=== PATIENT | female | born 1935 | race Caucasian/White ===

== ENCOUNTER → 2018-04-23 | Outpatient (CLI) | payer MEDICARE ==
[2018-04-23 09:00] LABS: Calcium 9.6 mg/dL (8.4-10.2); Magnesium 1.8 mg/dL (1.6-2.3); Potassium 4.7 mmol/L (3.5-5.1)
[2018-04-23 16:55] LABS: Vitamin D 25 Hydroxy 17.9 ng/mL (30.0-100.0)
== END | disposition home or self-care (01) ==
LOC: LABWHC1 07:56
PROVIDERS: ATTEND Internal Medicine
DX: E87.6 Hypokalemia (principal); E83.42 Hypomagnesemia; N28.9 Disorder of kidney and ureter, unspecified
CPT/HCPCS: 36415; 80048; 82306; 82607; 83735

== ENCOUNTER 2019-02-15 16:43 | Emergency (ER) | payer MEDICARE ==
--- NOTE | 2019-02-15 17:15 | ED ---
SOB HPI - General Chief Complaint: Shortness of Breath Stated Complaint: Sob Time Seen by Provider: 02/15/19 17:05 Source: patient, family, RN notes reviewed Mode of arrival: ambulatory Limitations: no limitations - History of Present Illness Initial Comments: This 83-year-old female who states she had sudden onset while shopping of sweats and dizziness later shortness of breath. She denies any chest pain palpitations fevers chills or other symptoms no cough no phlegm production she has no history that she knows of COPD or asthma no history of heart disease. Of note she did just get back from [place] after driving back 8 days ago. No history of any DVT or PE. MD Complaint: shortness of breath - Related Data Home Medications Medication Instructions Recorded Confirmed Allopurinol [Zyloprim] 100 mg PO DAILY 02/15/19 02/15/19 Calcium Carbonate [Calcium] 600 mg PO MOWEFR 02/15/19 02/15/19 Cholecalciferol [Vitamin D3 (25 5,000 unit PO DAILY 02/15/19 02/15/19 Mcg = 1000 Iu)] Cyanocobalamin (Vitamin B-12) 2,000 mcg PO DAILY 02/15/19 02/15/19 [Vitamin B-12] Cyclobenzaprine [Flexeril] 10 mg PO TID PRN 02/15/19 02/15/19 Ergocalciferol (Vitamin D2) 50,000 unit PO TUFR 02/15/19 02/15/19 [Drisdol] Glucosam/Yoel-Msm1/C/Anselmo/Bosw 2 tab PO DAILY 02/15/19 02/15/19 [Glucosamine-Chondroitin Tablet] Magnesium Oxide [Mag-Ox] 400 mg PO DAILY 02/15/19 02/15/19 Multivitamins, Thera [Multivitamin 1 tab PO DAILY 02/15/19 02/15/19 (formulary)] [place]-3 Fatty Acids [[place]-3] 1,000 mg PO DAILY 02/15/19 02/15/19 Allergies Allergy/AdvReac Type Severity Reaction Status Date / Time acetaminophen [From Vicodin] Allergy Anaphylaxis Verified 02/15/19 17:23 ciprofloxacin [From Cipro] Allergy Anaphylaxis Verified 02/15/19 17:23 codeine Allergy Anaphylaxis Verified 02/15/19 17:23 hydrocodone [From Vicodin] Allergy Anaphylaxis Verified 02/15/19 17:23 ibuprofen [From Motrin] Allergy Rash/Hives Verified 02/15/19 17:23 oxycodone [From Percocet] Allergy Anaphylaxis Verified 02/15/19 17:23 Penicillins Allergy Rash/Hives Verified 02/15/19 17:23 prednisone Allergy Anaphylaxis Verified 02/15/19 17:23 propoxyphene Allergy Anaphylaxis Verified 02/15/19 17:23 [From Darvocet-N] ramipril [From Altace] Allergy Anaphylaxis Verified 02/15/19 17:23 Review of Systems ROS Statement: Those systems with pertinent positive or pertinent negative responses have been documented in the HPI. ROS Other: All systems not noted in ROS Statement are negative. Past Medical History Past Medical History: No Reported History History of Any Multi-Drug Resistant Organisms: None Reported Past Surgical History: Bowel Resection Past Psychological History: No Psychological Hx Reported Smoking Status: Current every day smoker Past Alcohol Use History: None Reported Past Drug Use History: None Reported General Exam - General Exam Comments Initial Comments: This a well-developed asthenic appearing female who is awake alert oriented 3 Limitations: no limitations General appearance: alert, in no apparent distress Head exam: Present: atraumatic, normocephalic, normal inspection Eye exam: Present: normal appearance, PERRL, EOMI. Absent: scleral icterus, conjunctival injection, periorbital swelling ENT exam: Present: mucous membranes dry Neck exam: Present: normal inspection, full ROM, other (No stridor JVD or bruits). Absent: tenderness, meningismus, lymphadenopathy Respiratory exam: Present: normal lung sounds bilaterally. Absent: respiratory distress, wheezes, rales, rhonchi, stridor Cardiovascular Exam: Present: regular rate, normal rhythm, normal heart sounds. Absent: systolic murmur, diastolic murmur, rubs, gallop, clicks GI/Abdominal exam: Present: soft, normal bowel sounds. Absent: distended, tenderness, guarding, rebound, rigid Extremities exam: Present: normal inspection, full ROM, normal capillary refill. Absent: tenderness, pedal edema, joint swelling, calf tenderness Back exam: Present: normal inspection Neurological exam: Present: alert, oriented X3, CN II-XII intact Psychiatric exam: Present: normal affect, normal mood Skin exam: Present: warm, dry, intact, normal color. Absent: rash Course Vital Signs 02/15/19 02/15/19 16:44 18:30 Temperature 98.5 F Pulse Rate 90 73 Respiratory 24 20 Rate Blood Pressure 179/70 150/70 O2 Sat by Pulse 100 100 Oximetry Medical Decision Making - Medical Decision Making Patient was able ably without any difficulty she'll back to normal. The presentation is consistent with a vasovagal reaction she does demonstrate some mild hypomagnesemia likely some mild dehydration she was encouraged to increase her fluids she does take magnesium supplements once a day I did recommend she double up on them. This is for a period of one week she is a follow-up with Dr. Olea and return when necessary - Lab Data Result diagrams: 02/15/19 17:15 02/15/19 17:15 Lab Results 02/15/19 02/15/19 02/15/19 Range/Units 17:15 17:15 17:15 WBC 6.6 (3.8-10.6) k/uL RBC 4.29 (3.80-5.40) m/uL Hgb 13.8 (11.4-16.0) gm/dL Hct 41.7 (34.0-46.0) % MCV 97.4 (80.0-100.0) fL MCH 32.1 (25.0-35.0) pg MCHC 33.0 (31.0-37.0) g/dL RDW 14.5 (11.5-15.5) % Plt Count 200 (150-450) k/uL Neutrophils % 47 % Lymphocytes % 44 % Monocytes % 5 % Eosinophils % 2 % Basophils % 1 % Neutrophils # 3.1 (1.3-7.7) k/uL Lymphocytes # 2.9 (1.0-4.8) k/uL Monocytes # 0.3 (0-1.0) k/uL Eosinophils # 0.1 (0-0.7) k/uL Basophils # 0.0 (0-0.2) k/uL PT 10.1 (9.0-12.0) sec INR 0.9 (<1.2) APTT 22.6 (22.0-30.0) sec D-Dimer 1.15 H (<0.60) mg/L FEU Sodium 138 (137-145) mmol/L Potassium 5.0 (3.5-5.1) mmol/L Chloride 106 (98-107) mmol/L Carbon Dioxide 21 L (22-30) mmol/L Anion Gap 11 mmol/L BUN 36 H (7-17) mg/dL Creatinine 1.25 H (0.52-1.04) mg/dL Est GFR (CKD-EPI)AfAm 46 (>60 ml/min/1.73 sqM) Est GFR (CKD-EPI)NonAf 40 (>60 ml/min/1.73 sqM) Glucose 104 H (74-99) mg/dL Calcium 10.1 (8.4-10.2) mg/dL Magnesium 1.5 L (1.6-2.3) mg/dL Total Bilirubin 0.4 (0.2-1.3) mg/dL AST 37 H (14-36) U/L ALT 25 (9-52) U/L Alkaline Phosphatase 45 (38-126) U/L Creatine Kinase 61 (30-135) U/L Troponin I (0.000-0.034) ng/mL NT-Pro-B Natriuret Pep pg/mL Total Protein 7.4 (6.3-8.2) g/dL Albumin 4.5 (3.5-5.0) g/dL 02/15/19 02/15/19 Range/Units 17:15 17:15 WBC (3.8-10.6) k/uL RBC (3.80-5.40) m/uL Hgb (11.4-16.0) gm/dL Hct (34.0-46.0) % MCV (80.0-100.0) fL MCH (25.0-35.0) pg MCHC (31.0-37.0) g/dL RDW (11.5-15.5) % Plt Count (150-450) k/uL Neutrophils % % Lymphocytes % % Monocytes % % Eosinophils % % Basophils % % Neutrophils # (1.3-7.7) k/uL Lymphocytes # (1.0-4.8) k/uL Monocytes # (0-1.0) k/uL Eosinophils # (0-0.7) k/uL Basophils # (0-0.2) k/uL PT (9.0-12.0) sec INR (<1.2) APTT (22.0-30.0) sec D-Dimer (<0.60) mg/L FEU Sodium (137-145) mmol/L Potassium (3.5-5.1) mmol/L Chloride (98-107) mmol/L Carbon Dioxide (22-30) mmol/L Anion Gap mmol/L BUN (7-17) mg/dL Creatinine (0.52-1.04) mg/dL Est GFR (CKD-EPI)AfAm (>60 ml/min/1.73 sqM) Est GFR (CKD-EPI)NonAf (>60 ml/min/1.73 sqM) Glucose (74-99) mg/dL Calcium (8.4-10.2) mg/dL Magnesium (1.6-2.3) mg/dL Total Bilirubin (0.2-1.3) mg/dL AST (14-36) U/L ALT (9-52) U/L Alkaline Phosphatase (38-126) U/L Creatine Kinase (30-135) U/L Troponin I <0.012 (0.000-0.034) ng/mL NT-Pro-B Natriuret Pep 236 pg/mL Total Protein (6.3-8.2) g/dL Albumin (3.5-5.0) g/dL - EKG Data -: EKG Interpreted by Me EKG shows normal: sinus rhythm (Normal sinus rhythm a 68. Interval 170 QRS duration 80 QT since QTC 376/399 st-t wave changes some artifact present) - Radiology Data Radiology results: report reviewed (I did review the imaging and report no acute findings no evidence of PE.), image reviewed Disposition Clinical Impression: Vasovagal episode, Hypomagnesemia, Dehydration Disposition: HOME SELF-CARE Condition: Good Instructions (If sedation given, give patient instructions): Hypomagnesemia (ED), Dehydration (ED) Is patient prescribed a controlled substance at d/c from ED?: No Referrals: Arnie Olea MD [Primary Care Provider] - 1-2 days
[2019-02-15 17:30] LABS: Basophils % (A) 1 %; Eosinophils # (A) 0.1 k/uL (0-0.7); Eosinophils % (A) 2 %; HCT 41.7 % (34.0-46.0); HGB 13.8 gm/dL (11.4-16.0); Lymphocytes # (A) 2.9 k/uL (1.0-4.8); Lymphocytes % (A) 44 %; MCH 32.1 pg (25.0-35.0); MCV 97.4 fL (80.0-100.0); Mean Platelet Volume 7.6; Monocytes # (A) 0.3 k/uL (0-1.0); Monocytes % (A) 5 %; Neutrophils # (A) 3.1 k/uL (1.3-7.7); Neutrophils % (A) 47 %; Platelet Count 200 k/uL (150-450); RBC 4.29 m/uL (3.80-5.40); RDW 14.5 % (11.5-15.5); WBC 6.6 k/uL (3.8-10.6)
[2019-02-15 17:39] LABS: Albumin 4.5 g/dL (3.5-5.0); Calcium 10.1 mg/dL (8.4-10.2); Magnesium 1.5 mg/dL (1.6-2.3); Total Bilirubin 0.4 mg/dL (0.2-1.3); Total Protein 7.4 g/dL (6.3-8.2)
--- NOTE | 2019-02-15 17:44 | XR ---
EXAMINATION TYPE: XR chest 2V DATE OF EXAM: 02/15/2019 COMPARISON: 08/11/2013 HISTORY: Short of breath TECHNIQUE: Frontal and lateral views of the chest are obtained. FINDINGS: There is no heart failure nor confluent pneumonic infiltrate. Costophrenic angles are fair ly clear. Thoracic aorta is atheromatous. Bony thorax appears intact. There is slight blunting left costophrenic angle. IMPRESSION: Normal heart. There is new minimal pleural reaction left lateral lung base compared to l ast exam.
[2019-02-15 17:46] LABS: INR 0.9 (<1.2); Partial Thromboplastin Time 22.6 sec (22.0-30.0); Prothrombin Time 10.1 sec (9.0-12.0)
[2019-02-15 17:55] LABS: D-Dimer 1.15 mg/L FEU (<0.60)
[2019-02-15] MEDS ORDERED: SODIUM CHLORIDE 0.9% 500 ML 500 ML IV STA (18:27)
--- NOTE | 2019-02-15 19:43 | CT ---
EXAMINATION TYPE: CT angio chest DATE OF EXAM: 02/15/2019 7:02 PM COMPARISON: None HISTORY: Difficulty breathing. CT DLP: 239.5 mGycm Automated exposure control for dose reduction was used. CONTRAST: CTA scan of the thorax is performed with IV Contrast, patient injected with 57 mL of Isovue 370, pulm onary embolism protocol. . There are 3-D post processed images. FINDINGS: There is mild subsegmental atelectasis at the lung bases. There is no pleural effusion. Heart size is normal. There is no pericardial effusion. There is no mediastinal adenopathy. There are no hilar mas ses. There is normal contrast opacification of the pulmonary arteries. I see no filling defect. Thora cic aorta shows mild atheromatous change. There is no evidence of aneurysm or dissection. The bony th orax shows hypertrophic spurring in the thoracic spine. I see no bony destructive process. IMPRESSION: MINIMAL SCARRING AND SUBSEGMENTAL ATELECTASIS AT THE LUNG BASES. NO EVIDENCE OF PULMONARY EMBOLISM.
[2019-02-15 21:01] VITALS: BP 157/67; PULSE 76; RESP 18; TEMP 98.6
== END 2019-02-15 21:03 | disposition home or self-care (01) ==
LOC: EC 16:43
DX: E86.0 Dehydration (principal); E83.42 Hypomagnesemia; R55 Syncope and collapse; R94.31 Abnormal electrocardiogram [ECG] [EKG]; R06.02 Shortness of breath; F17.200 Nicotine dependence, unspecified, uncomplicated; Z88.0 Allergy status to penicillin; Z88.1 Allergy status to other antibiotic agents; Z88.5 Allergy status to narcotic agent; Z88.6 Allergy status to analgesic agent; Z88.8 Allergy status to other drugs, medicaments and biological substances; Z79.899 Other long term (current) drug therapy
CPT/HCPCS: 36415; 93005; 85379; 83880; 80053; 82550; 83735; 84484; 85025; 85610; 85730; 71046; 71275; 99285; 96360; Q9967

== ENCOUNTER → 2021-02-15 | Outpatient (CLI) | payer MEDICARE ==
--- NOTE | 2021-02-15 13:51 | US ---
EXAMINATION TYPE: US kidneys/renal and bladder DATE OF EXAM: 02/15/2021 COMPARISON: NONE CLINICAL HISTORY: N17.9 Acute kidney failure, unspecified. EXAM MEASUREMENTS: Right Kidney: 10.9 x 3.2 x 4.5 cm Left Kidney: 7.9 x 3.2 x 3.0 cm Right Kidney: No hydronephrosis or masses seen Left Kidney: ill defined, heterogeneous kidney, measures small Bladder: wnl There is no evidence for hydronephrosis at this point in time. No nephrolithiasis is seen. No santa s are identified. The urinary bladder is anechoic. Bilateral ureteral jets are seen. IMPRESSION: Diminutive kidney on the left.
== END | disposition home or self-care (01) ==
LOC: RADUSWWP 12:56
PROVIDERS: ATTEND Internal Medicine Nephrology
DX: N17.9 Acute kidney failure, unspecified (principal)
CPT/HCPCS: 76770

== ENCOUNTER 2021-06-04 14:31 | Inpatient (IN) | payer MEDICARE ==
[2021-06-04] MEDS ORDERED: SODIUM CHLORIDE 0.9% 500 ML 500 ML IV STA (15:12)
--- NOTE | 2021-06-04 15:18 | ED ---
Weakness HPI - General Source: patient, family, RN notes reviewed, old records reviewed Mode of arrival: wheelchair Limitations: no limitations - History of Present Illness MD Complaint: generalized weakness -: days(s) (6) Location: generalized Severity scale (1-10): 0 Context: new medication (2 weeks ago started a blood pressure medication), other (Recovering from a right ear infection and ental extraction last week currently taking Keflex) <Chi Boggs - Last Filed: 06/04/21 21:46> <Edwige Newton - Last Filed: 06/08/21 14:31> - General Chief complaint: Weakness Stated complaint: Weakness Time Seen by Provider: 06/04/21 15:02 - History of Present Illness Initial comments: 85-year-old female patient presents to the emergency room, alert and oriented 4, complaining of generalized weakness since . Patient states that she was started on Keflex for an ear infection and also had a tooth extraction upper left last molar. She states that her primary doctor put her on a new blood pressure patch after having no results with oral tablets related her ileostomy and she was having low blood pressures. She denies any chest pain, nausea or vomiting. She states that she had a low-grade fever of 99 at home. She has a mild headache and has not been eating well per her .. (Chi Boggs) - Related Data Home Medications Medication Instructions Recorded Confirmed Allopurinol [Zyloprim] 100 mg PO DAILY 02/15/19 06/04/21 Ergocalciferol (Vitamin D2) 50,000 unit PO MOFR 02/15/19 06/04/21 [Drisdol (50,000 Iu)] Multivitamins, Thera [Multivitamin 1 tab PO DAILY 02/15/19 06/04/21 (formulary)] Calcium Citrate 1,000 mg PO MOWEFR 06/04/21 06/04/21 Cyanocobalamin (Vitamin B-12) 1,000 mcg PO DAILY 06/04/21 06/04/21 [Vitamin B-12] Garlic 1 tab PO DAILY 06/04/21 06/04/21 Krill/[place]-3/Dha/Epa/Lipids 1 cap PO MOWEFR 06/04/21 06/04/21 [Krill Oil 350 mg Softgel] Magnesium Glycintate 400mg 1 tab PO BID 06/04/21 06/04/21 Xgrswxpt-Tydwmrrqx-Bx Otic 4 drops RIGHT EAR QID 06/04/21 06/04/21 [Cortisporin Otic Soln] Turmeric Root Extract [Turmeric] 500 mg PO DAILY 06/04/21 06/04/21 predniSONE 1 mg PO TID 06/04/21 06/04/21 Previous Rx's Medication Instructions Recorded Acetaminophen Tab [Tylenol] 650 mg PO Q6HR PRN tab 06/07/21 Clindamycin [Cleocin] 300 mg PO Q8H 5 Days #30 cap 06/07/21 Lactobacillus Acidoph & Bulgar 1 each PO BID #60 packet 06/07/21 [Lactinex] Allergies Allergy/AdvReac Type Severity Reaction Status Date / Time acetaminophen [From Vicodin] Allergy Anaphylaxis Verified 06/04/21 19:27 ceftriaxone Allergy Swelling Verified 06/05/21 14:36 ciprofloxacin [From Cipro] Allergy Anaphylaxis Verified 06/04/21 19:27 codeine Allergy Anaphylaxis Verified 06/04/21 19:27 hydrocodone [From Vicodin] Allergy Anaphylaxis Verified 06/04/21 19:27 ibuprofen [From Motrin] Allergy Rash/Hives Verified 06/04/21 19:27 oxycodone [From Percocet] Allergy Anaphylaxis Verified 06/04/21 19:27 Penicillins Allergy Rash/Hives Verified 06/04/21 19:27 prednisone Allergy Anaphylaxis Verified 06/04/21 19:27 propoxyphene Allergy Anaphylaxis Verified 06/04/21 19:27 [From Darvocet-N] ramipril [From Altace] Allergy Anaphylaxis Verified 06/04/21 19:27 Review of Systems ROS Other: All systems not noted in ROS Statement are negative. <Chi Boggs - Last Filed: 06/04/21 21:46> ROS Other: All systems not noted in ROS Statement are negative. <Edwige Newton - Last Filed: 06/08/21 14:31> ROS Statement: Those systems with pertinent positive or pertinent negative responses have been documented in the HPI. Past Medical History Past Medical History: No Reported History History of Any Multi-Drug Resistant Organisms: None Reported Past Surgical History: Bowel Resection Additional Past Surgical History / Comment(s): illeostomy Past Psychological History: No Psychological Hx Reported Smoking Status: Never smoker Past Alcohol Use History: None Reported Past Drug Use History: None Reported <Chi Boggs - Last Filed: 06/04/21 21:46> - Past Family History Mother Family Medical History: Diabetes Mellitus Father Family Medical History: Hypertension Additional Family Medical History / Comment(s): of heart attrack <Edwige Newton - Last Filed: 06/08/21 14:31> General Exam Limitations: no limitations General appearance: alert, in no apparent distress Head exam: Present: atraumatic, normocephalic, normal inspection Eye exam: Present: normal appearance, PERRL, EOMI. Absent: scleral icterus, conjunctival injection, periorbital swelling ENT exam: Present: normal exam, normal oropharynx, mucous membranes moist, other (Right canal red and tender from earwax removal last week) Neck exam: Present: normal inspection, full ROM. Absent: tenderness, meningismus, lymphadenopathy, thyromegaly Respiratory exam: Present: normal lung sounds bilaterally. Absent: respiratory distress, wheezes, rales, rhonchi, stridor, chest wall tenderness, accessory muscle use, decreased breath sounds, prolonged expiratory Cardiovascular Exam: Present: regular rate, normal rhythm, normal heart sounds. Absent: systolic murmur, diastolic murmur, rubs, gallop, clicks GI/Abdominal exam: Present: soft, normal bowel sounds, other (Ileostomy with brown liquid stool). Absent: distended, tenderness, guarding, rebound, rigid Extremities exam: Present: normal inspection, full ROM, normal capillary refill. Absent: tenderness, pedal edema, joint swelling, calf tenderness Back exam: Present: normal inspection, full ROM. Absent: tenderness, CVA tenderness (R), CVA tenderness (L), muscle spasm, rash noted Neurological exam: Present: alert, oriented X3, CN II-XII intact Psychiatric exam: Present: normal affect, normal mood Skin exam: Present: warm, dry, intact, normal color. Absent: rash, cyanosis, diaphoretic, erythema, petechiae, pallor, mottled <Chi Boggs - Last Filed: 06/04/21 21:46> Course Vital Signs 06/04/21 06/05/21 06/05/21 14:34 01:25 02:51 Temperature 98.4 F 98 F Pulse Rate 88 71 60 Pulse Rate [ Right Lateral] Respiratory 18 18 18 Rate Blood Pressure 127/65 114/80 Blood Pressure [Right Femoral Artery] O2 Sat by Pulse 98 98 98 Oximetry 06/05/21 06/05/21 06/05/21 07:48 08:30 12:11 Temperature 98.6 F 98.4 F Pulse Rate Pulse Rate [ 74 75 Right Lateral] Respiratory 17 18 17 Rate Blood Pressure Blood Pressure 133/66 123/73 [Right Femoral Artery] O2 Sat by Pulse 98 99 Oximetry 06/05/21 19:29 Temperature 100.0 F H Pulse Rate 88 Pulse Rate [ Right Lateral] Respiratory 16 Rate Blood Pressure 116/62 Blood Pressure [Right Femoral Artery] O2 Sat by Pulse 98 Oximetry EKG Findings - EKG Results: EKG: sinus rhythm (Ventricular rate of 85, CT interval 0.164, QRS 0.74, QTC 0.426) <Chi Boggs - Last Filed: 06/04/21 21:46> Medical Decision Making - Lab Data Result diagrams: 06/04/21 15:31 06/04/21 15:31 <Chi Boggs - Last Filed: 06/04/21 21:46> - Lab Data Result diagrams: 06/06/21 05:29 06/06/21 05:29 <Edwige Newton - Last Filed: 06/08/21 14:31> - Medical Decision Making EKG shows normal sinus rhythm with no ST elevation, her troponin is negative at 0.012. Hemoglobin and hematocrit are 13 and 40 respectively. Patient is hyponatremic at 129 and was given a 500 mL bolus of normal saline. X-ray shows no heart failure or infiltrates. Heart size is normal there is no cardiopulmonary disease. Patient states that she is still too weak to stand on her own. She'll be admitted to the hospital for weakness and inability to ambulate along with hyponatremia. Case discussed with Dr. Newton (Chi Boggs) I was available for consultation in the emergency department. The history and physical exam were done by the midlevel provider. I was consulted for this patients care. I reviewed the case with the midlevel provider and based on their presentation of the patient, I agree with the assessment, medical decision making and plan of care as documented. Chart was dictated using [employer] dictation software. Attempts were made to correct any dictation errors however some typographical errors may persist. Patient was seen during a national state of emergency due to the Covid-19 pandemic. (Edwige Newton) - Lab Data Lab Results 06/04/21 06/04/21 06/04/21 Range/Units 15:31 15:31 15:31 WBC 8.7 (3.8-10.6) k/uL RBC 4.05 (3.80-5.40) m/uL Hgb 13.3 (11.4-16.0) gm/dL Hct 40.6 (34.0-46.0) % MCV 100.4 H (80.0-100.0) fL MCH 33.0 (25.0-35.0) pg MCHC 32.9 (31.0-37.0) g/dL RDW 14.0 (11.5-15.5) % Plt Count 201 (150-450) k/uL MPV 7.8 Neutrophils % 68 % Lymphocytes % 21 % Monocytes % 6 % Eosinophils % 1 % Basophils % 1 % Neutrophils # 5.9 (1.3-7.7) k/uL Lymphocytes # 1.8 (1.0-4.8) k/uL Monocytes # 0.5 (0-1.0) k/uL Eosinophils # 0.1 (0-0.7) k/uL Basophils # 0.1 (0-0.2) k/uL Hypochromasia Slight Poikilocytosis Slight Macrocytosis Slight PT 9.7 (9.0-12.0) sec INR 0.9 (<1.2) APTT 21.7 L (22.0-30.0) sec Sodium (137-145) mmol/L Potassium (3.5-5.1) mmol/L Chloride (98-107) mmol/L Carbon Dioxide (22-30) mmol/L Anion Gap mmol/L BUN (7-17) mg/dL Creatinine (0.52-1.04) mg/dL Est GFR (CKD-EPI)AfAm (>60 ml/min/1.73 sqM) Est GFR (CKD-EPI)NonAf (>60 ml/min/1.73 sqM) Glucose (74-99) mg/dL Plasma Lactic Acid Thai (0.7-2.0) mmol/L Calcium (8.4-10.2) mg/dL Magnesium (1.6-2.3) mg/dL Total Bilirubin (0.2-1.3) mg/dL AST (14-36) U/L ALT (4-34) U/L Alkaline Phosphatase (38-126) U/L Troponin I (0.000-0.034) ng/mL Total Protein (6.3-8.2) g/dL Albumin (3.5-5.0) g/dL Urine Color Yellow Urine Appearance Cloudy H (Clear) Urine pH 5.0 (5.0-8.0) Ur Specific [place] 1.017 (1.001-1.035) Urine Protein Trace H (Negative) Urine Glucose (UA) Negative (Negative) Urine Ketones Negative (Negative) Urine Blood Negative (Negative) Urine Nitrite Negative (Negative) Urine Bilirubin Negative (Negative) Urine Urobilinogen <2.0 (<2.0) mg/dL Ur Leukocyte Esterase Moderate H (Negative) Urine RBC 3 (0-5) /hpf Urine WBC 3 (0-5) /hpf Ur Squamous Epith Cells 3 (0-4) /hpf Urine Bacteria Rare H (None) /hpf Urine Mucus Rare H (None) /hpf 06/04/21 06/04/21 06/04/21 Range/Units 15:31 15:31 15:31 WBC (3.8-10.6) k/uL RBC (3.80-5.40) m/uL Hgb (11.4-16.0) gm/dL Hct (34.0-46.0) % MCV (80.0-100.0) fL MCH (25.0-35.0) pg MCHC (31.0-37.0) g/dL RDW (11.5-15.5) % Plt Count (150-450) k/uL MPV Neutrophils % % Lymphocytes % % Monocytes % % Eosinophils % % Basophils % % Neutrophils # (1.3-7.7) k/uL Lymphocytes # (1.0-4.8) k/uL Monocytes # (0-1.0) k/uL Eosinophils # (0-0.7) k/uL Basophils # (0-0.2) k/uL Hypochromasia Poikilocytosis Macrocytosis PT (9.0-12.0) sec INR (<1.2) APTT (22.0-30.0) sec Sodium 129 L (137-145) mmol/L Potassium 4.1 (3.5-5.1) mmol/L Chloride 96 L (98-107) mmol/L Carbon Dioxide 20 L (22-30) mmol/L Anion Gap 13 mmol/L BUN 55 H (7-17) mg/dL Creatinine 1.72 H (0.52-1.04) mg/dL Est GFR (CKD-EPI)AfAm 31 (>60 ml/min/1.73 sqM) Est GFR (CKD-EPI)NonAf 27 (>60 ml/min/1.73 sqM) Glucose 111 H (74-99) mg/dL Plasma Lactic Acid [place] 1.4 (0.7-2.0) mmol/L Calcium 9.4 (8.4-10.2) mg/dL Magnesium 2.1 (1.6-2.3) mg/dL Total Bilirubin 0.7 (0.2-1.3) mg/dL AST 32 (14-36) U/L ALT 33 (4-34) U/L Alkaline Phosphatase 55 (38-126) U/L Troponin I <0.012 (0.000-0.034) ng/mL Total Protein 7.1 (6.3-8.2) g/dL Albumin 4.3 (3.5-5.0) g/dL Urine Color Urine Appearance (Clear) Urine pH (5.0-8.0) Ur Specific [place] (1.001-1.035) Urine Protein (Negative) Urine Glucose (UA) (Negative) Urine Ketones (Negative) Urine Blood (Negative) Urine Nitrite (Negative) Urine Bilirubin (Negative) Urine Urobilinogen (<2.0) mg/dL Ur Leukocyte Esterase (Negative) Urine RBC (0-5) /hpf Urine WBC (0-5) /hpf Ur Squamous Epith Cells (0-4) /hpf Urine Bacteria (None) /hpf Urine Mucus (None) /hpf Disposition Decision Date: 06/04/21 Decision Time: 18:35 <Chi Boggs - Last Filed: 06/04/21 21:46> <Edwige Newton - Last Filed: 06/08/21 14:31> Clinical Impression: Hyponatremia, Weakness Disposition: ADMITTED IP TO THIS HOSP Condition: Stable
[2021-06-04 16:10] LABS: Appearance,Urine Cloudy (Clear); Bacteria,Urine Rare /hpf; Bilirubin,Urine Negative (Negative); Blood,Urine Negative (Negative); Color,Urine Yellow; Glucose,Urine (UA) Negative (Negative); Ketones,Urine Negative (Negative); Leukocyte Esterase,Urine Moderate (Negative); Mucus,Urine Rare /hpf; Nitrite,Urine Negative (Negative); Protein,Urine Trace (Negative); RBC,Urine 3 /hpf (0-5); Specific Gravity,Urine 1.017 (1.001-1.035); Squamous Epithelial Cell,Urine 3 /hpf (0-4); Urobilinogen,Urine <2.0 mg/dL (<2.0); WBC,Urine 3 /hpf (0-5)
[2021-06-04 16:26] LABS: Basophils # (A) 0.1 k/uL (0-0.2); Basophils % (A) 1 %; Eosinophils # (A) 0.1 k/uL (0-0.7); Eosinophils % (A) 1 %; HCT 40.6 % (34.0-46.0); HGB 13.3 gm/dL (11.4-16.0); Hypochromasia Slight; Lymphocytes # (A) 1.8 k/uL (1.0-4.8); Lymphocytes % (A) 21 %; MCHC 32.9 g/dL (31.0-37.0); MCV 100.4 fL (80.0-100.0); Macrocytosis Slight; Mean Platelet Volume 7.8; Monocytes # (A) 0.5 k/uL (0-1.0); Monocytes % (A) 6 %; Neutrophils # (A) 5.9 k/uL (1.3-7.7); Neutrophils % (A) 68 %; Platelet Count 201 k/uL (150-450); Poikilocytosis Slight; RBC 4.05 m/uL (3.80-5.40); WBC 8.7 k/uL (3.8-10.6)
[2021-06-04 16:35] LABS: Albumin 4.3 g/dL (3.5-5.0); Calcium 9.4 mg/dL (8.4-10.2); Magnesium 2.1 mg/dL (1.6-2.3); Potassium 4.1 mmol/L (3.5-5.1); Total Bilirubin 0.7 mg/dL (0.2-1.3); Total Protein 7.1 g/dL (6.3-8.2)
[2021-06-04 16:37] LABS: INR 0.9 (<1.2); Prothrombin Time 9.7 sec (9.0-12.0)
[2021-06-04 16:47] LABS: Partial Thromboplastin Time 21.7 sec (22.0-30.0)
--- NOTE | 2021-06-04 18:07 | XR ---
EXAMINATION TYPE: XR chest 2V DATE OF EXAM: 06/04/2021 COMPARISON: 02/15/2019 HISTORY: Weakness TECHNIQUE: FINDINGS: There is no heart failure nor confluent pneumonic infiltrate. Thoracic aorta is atheromatou s. There are no hilar masses. Heart size is normal. Bony thorax is intact. IMPRESSION: No cardiopulmonary disease. No change.
[2021-06-04] MEDS ORDERED: NALOXONE 0.4 MG/ML 1 ML VIAL IV PRN (19:09)
[2021-06-04] MEDS ORDERED: ONDANSETRON 4 MG/2 ML VIAL IVP PRN (20:03)
--- NOTE | 2021-06-04 20:41 | HP ---
HISTORY AND PHYSICAL DATE OF SERVICE: 06/04/2021 CHIEF COMPLAINTS: Weakness and hyponatremia. HISTORY OF PRESENT ILLNESS: This 85-year-old woman with a past medical history of bowel resection and ileostomy also recently was found to have ear wax plugging in the right ear which was removed with some bleeding. Recently the patient was complaining of progressive tiredness and weakness. Subsequently the patient had taken antibiotics. Patient was unable to get up and walk even. The patient came to [facility] and was admitted for evaluation and treatment. There is no history of any fever, rigors or chills. No history of headache, loss of consciousness, seizures. Evaluation in the ER showed sodium was 129, creatinine was elevated to 1.72, indicating acute renal failure. The patient was admitted for further evaluation and treatment. The right ear is red and tender also. White count is normal. There is no history of any fever, rigor or chills. PAST MEDICAL HISTORY: History of ear wax removal, bowel resection, ileostomy. HOME MEDICATIONS: Prednisone mg p.o. t.i.d., turmeric, multivitamins, magnesium oxide, vitamin B12, Keflex, calcium citrate, . ALLERGIES: VICODIN, CIPRO, PERCOCET, PENICILLIN, DARVOCET, ALTACE. FAMILY HISTORY: No history of heart disease or strokes in the family. SOCIAL HISTORY: No history of heart disease or strokes in the family. REVIEW OF SYSTEMS: ENT: As mentioned earlier. CARDIOVASCULAR SYSTEM: No angina, palpitations. RESPIRATORY SYSTEM: As mentioned earlier. GI: As mentioned earlier. : No dysuria. NERVOUS SYSTEM: As mentioned earlier. ALLERGY/IMMUNOLOGY: No asthma or hay fever. MUSCULOSKELETAL: As mentioned earlier. HEMATOLOGY/ONCOLOGY: No history of anemia. ENDOCRINE: No history of diabetes, hypothyroidism. CONSTITUTIONAL: As mentioned earlier. DERMATOLOGY: Negative. RHEUMATOLOGY: Negative. PSYCHIATRY: As mentioned earlier. PHYSICAL EXAMINATION: Patient alert and oriented x3. Pulse 88, blood pressure 127/64, respiration 18, temperature 98.2, pulse ox 98% on room air. HEENT: Conjunctivae normal. Examination of the right ear is painful. Some redness also present. Oral mucosa moist. NECK: No jugular venous distention. No carotid bruit. No lymph node enlargement. CARDIOVASCULAR: S1, S2 muffled. No S3. No S4. RESPIRATION: Breath sounds diminished at the bases. No rhonchi. No crackles. ABDOMEN: Soft, nontender. No mass palpable. LEGS: No edema. No swelling. NERVOUS SYSTEM: Higher functions as mentioned earlier. Significant weakness, especially in both lower limbs. Gait dysfunction present. Pulses are diminished. No sensory abnormalities. SKIN: No ulcer, rash, bleeding. JOINTS: No active deforming arthropathy. LABS: Chest x-ray which was reviewed personally by me showed no active disease. The EKG was also reviewed which showed normal sinus rhythm. MCV is 100.4, sodium is 129, and creatinine is 1.72. ASSESSMENT: 1. Acute renal failure with acute tubular necrosis and dehydration possibly. 2. Hyponatremia. 3. Generalized weakness for evaluation. 4. Possible external otitis. 5. History of recent wax removal. 6. History of bowel resection. 7. History of ileostomy. 8. FULL CODE. RECOMMENDATIONS AND DISCUSSION: In this 85-year-old woman who presented with multiple complex medical issues, we will monitor the patient closely, continue the current medications, continue with symptomatic treatment. Will initiate broad-spectrum IV antibiotics. Ear cultures. See orders for further details. Further recommendations to follow. Include blood cultures and also to rule out the possibility of sepsis. Discussed with the patient and family, who understand and agree. Further recommendations to follow. Home medications will be continued once reconciled. IV fluids. Will monitor renal functions closely. MMODL / IJN: [id number] / LUIS ENRIQUE
[2021-06-04] MEDS ORDERED: MAGNESIUM OXIDE 400 MG TAB PO SCH (21:00)
[2021-06-04] MEDS: HEPARIN SODIUM,PORCINE/PF 5,000 UNIT/0.5 ML SYRINGE SQ SCH (23:06)
[2021-06-04] MEDS: SODIUM CHLORIDE 0.9% 1,000 ML IV SCH (23:07)
[2021-06-04] MEDS: MAGNESIUM OXIDE 400 MG TAB PO SCH (23:07)
[2021-06-05] MEDS: NEOMYCIN-POLYMYXIN-HC (3.5-10,000-10 MG) OTIC DROPS 10 ML BTL RIGHT EAR SCH ×4 (02:17→17:33)
[2021-06-05 04:18] LABS: Basophils % (A) 1 %; Eosinophils # (A) 0.1 k/uL (0-0.7); Eosinophils % (A) 1 %; HCT 38.9 % (34.0-46.0); HGB 12.8 gm/dL (11.4-16.0); Lymphocytes # (A) 2.1 k/uL (1.0-4.8); Lymphocytes % (A) 26 %; MCH 32.9 pg (25.0-35.0); MCHC 32.9 g/dL (31.0-37.0); MCV 100.3 fL (80.0-100.0); Mean Platelet Volume 7.9; Monocytes # (A) 0.5 k/uL (0-1.0); Monocytes % (A) 7 %; Neutrophils # (A) 4.9 k/uL (1.3-7.7); Neutrophils % (A) 63 %; Platelet Count 198 k/uL (150-450); RBC 3.87 m/uL (3.80-5.40); RDW 12.9 % (11.5-15.5); WBC 7.8 k/uL (3.8-10.6)
[2021-06-05] MEDS: allopurinoL 100 MG TAB PO SCH (07:57)
[2021-06-05] MEDS: CYANOCOBALAMIN 500 MCG TAB PO SCH (07:58)
[2021-06-05] MEDS: CALCIUM CARBONATE 500 MG CHEWABLE PO SCH (07:58)
[2021-06-05] MEDS: HEPARIN SODIUM,PORCINE/PF 5,000 UNIT/0.5 ML SYRINGE SQ SCH ×2 (07:58→21:36)
[2021-06-05] MEDS: MULTIVITAMINS, THERA 1 EACH TAB PO SCH (07:58)
[2021-06-05] MEDS: MAGNESIUM OXIDE 400 MG TAB PO SCH ×2 (07:58→21:34)
[2021-06-05] MEDS: SODIUM CHLORIDE 0.9% 1,000 ML IV SCH (08:00)
[2021-06-05 12:34] LABS: African American GFR (CKD) 33.9 (60.0-200.0); BUN/Creat Ratio 33.75 Ratio (12.00-20.00); C Reactive Protein <0.4 mg/dL (0.0-0.8); Calcium 9.8 mg/dL (8.7-10.3); Carbon Dioxide 21.3 mmol/L (21.6-31.8); Chloride 101 mmol/L (96-109); Glucose 140 mg/dL (70-110); Non-African American GFR(CKD) 29.3 (60.0-200.0); Potassium 3.6 mmol/L (3.5-5.5); Sodium 134 mmol/L (135-145)
[2021-06-05 14:28] LABS: Erythrocyte Sedimentation Rate 43 mm/Hr (0-30)
--- NOTE | 2021-06-05 19:21 | PN ---
PROGRESS NOTE DATE OF SERVICE: 06/05/2021 This 85-year-old woman was admitted with weakness and hyponatremia, suspected to have sepsis, external ( ) was is a consideration. The patient is on IV antibiotics. After Rocephin patient has some swelling and some itching. No chest pain. No palpitations. No fever. PHYSICAL EXAMINATION: Alert and oriented x3. Pulse 75, blood pressure 123/70, respiration 17, temperature 98.4, pulse ox 98% on room air. HEENT: Conjunctivae normal. Otherwise, right ear is slightly erythematous. NECK: No jugular venous distention. No lymph node enlargement. CARDIOVASCULAR: S1, S2, muffled. No S3, no S4, RESPIRATORY: Diminished breath sounds at the bases. No rhonchi, no crackles. ABDOMEN: Soft. NERVOUS SYSTEM: No focal deficits. LABS: Sodium 134, creatinine is 1.6. Other labs are noted. Cultures are negative so far. ASSESSMENT: 1. Acute renal failure with acute tubular necrosis and dehydration possibly, present on admission. 2. Hyponatremia. 3. Generalized weakness, for evaluation. 4. Right external otitis, rule out sepsis. 5. History of recent wax removal. 6. History of bowel resection. 7. History of Ileostomy. 8. FULL CODE. RECOMMENDATIONS AND DISCUSSION: Recommend to continue current management and symptomatic treatment. Closely follow with Infectious Disease and Nephrology. Continue the IV fluids. Repeat labs tomorrow. Guarded prognosis. Further recommendations to follow. MMODL / IJN: [id number] /
[2021-06-05] MEDS ORDERED: DHA PO SCH (20:00)
[2021-06-05] MEDS ORDERED: [UNRECOGNIZED DRUG - OTHER] PO SCH (20:00)
[2021-06-05] MEDS ORDERED: KRILL PO SCH (20:00)
[2021-06-05] MEDS ORDERED: EPA PO SCH (20:00)
[2021-06-05] MEDS ORDERED: LIPIDS PO SCH (20:00)
[2021-06-05] MEDS ORDERED: OMEGA PO SCH (20:00)
[2021-06-05] MEDS ORDERED: diphenhydrAMINE 50 MG/ML 1 ML VIAL IVP PRN (21:29)
[2021-06-05] MEDS: ACETAMINOPHEN TAB 325 MG TAB PO PRN (21:34)
[2021-06-06] MEDS: NEOMYCIN-POLYMYXIN-HC (3.5-10,000-10 MG) OTIC DROPS 10 ML BTL RIGHT EAR SCH (01:41)
[2021-06-06] MEDS: SODIUM CHLORIDE 0.9% 1,000 ML IV SCH ×2 (05:08→08:55)
[2021-06-06 06:11] LABS: Basophils % (A) 1 %; Eosinophils # (A) 0.1 k/uL (0-0.7); Eosinophils % (A) 1 %; HCT 35.8 % (34.0-46.0); HGB 12.2 gm/dL (11.4-16.0); Lymphocytes # (A) 1.8 k/uL (1.0-4.8); Lymphocytes % (A) 29 %; MCH 33.9 pg (25.0-35.0); MCHC 34.1 g/dL (31.0-37.0); MCV 99.5 fL (80.0-100.0); Mean Platelet Volume 7.5; Monocytes # (A) 0.4 k/uL (0-1.0); Monocytes % (A) 6 %; Neutrophils # (A) 3.8 k/uL (1.3-7.7); Neutrophils % (A) 61 %; Platelet Count 216 k/uL (150-450); RBC 3.59 m/uL (3.80-5.40); RDW 13.3 % (11.5-15.5); WBC 6.2 k/uL (3.8-10.6)
--- NOTE | 2021-06-06 07:34 | P.CONS ---
History of Present Illness - Reason for Consult Consult date: 06/05/21 right otitis extenra Requesting physician: Selwyn Vaughn - Chief Complaint weakness and right ear pain x few days - History of Present Illness History of present illness : Patient is 85-year-old female presenting to the ER yesterday for evaluation of generalized weakness symptom has been going on since patient mention she did have a significant amount of wax in her ear which has been extracted by her physician and subsequent has developed an infection to the right ear for the patient was started on oral Keflex and the patient also have extraction of the last molar tooth patient complains of generalized weakness and did have nausea vomiting unable to keep anything down patient on presentation hospital was afebrile patient did have a normal white count did have elevated BUN and creatinine kidney function was normal urine was mildly positive but no pyuria patient did have a cultures obtained from the radiation as well as blood cultures are currently pending patient did have multiple antibiotic allergies and this infectious disease was consulted for further management of antibiotic therapy Review of system: CONSTITUTIONAL: Positive for weakness however denies fever. EYES: No complaint. ENT: As per history of present illness. RESPIRATORY: No complaint. CARDIOVASCULAR: No complaint. GENITOURINARY: No complaint. GASTROINTESTINAL: As per history of present illness. MUSCULOSKELETAL: No complaint. INTEGUMENTARY: No complaint. PSYCHOLOGIC: No complaint. ENDOCRINE: No complaint. NEUROLOGIC: No complaint. Past medical history : Reviewed, documented below Past surgical history : Reviewed, documented below Social history: Reviewed, documented below Medications: Reviewed, as documented below GENERAL DESCRIPTION: Elderly female lying in bed, no distress. No tachypnea or accessory muscle of respiration use. HEENT: Shows Pallor , no scleral icterus. Oral mucous membrane is dry. Right ear canal did have a beefy red appearance but no drainage NECK: Trachea central, no thyromegaly. LUNGS: Unlabored breathing. Clear to auscultation anteriorly. No wheeze or crackle. HEART: S1, S2, regular rate and rhythm. ABDOMEN: Soft, no tenderness , guarding or rigidity EXTREMITIES: No edema of feet. SKIN: No rash, no masses palpable. NEUROLOGICAL: The patient is awake, alert, oriented x3, mood and affect normal. LABS AND RADIOLOGY: Reviewed results see below Assessment : 1-Patient presented to hospital with generalized weakness which is multifactorial in this patient who did have possible otitis externa after the patient did have a removal of a impacted wax as the ear canal looks inflamed however no inflammation of the external ear, also have a recent molar tooth extractions but no other symptoms referable to that area 2-patient with multiple antibiotic allergies that would limit the number of antibiotics safe to use Plan: 1-we will start the patient on Rocephin 2 g daily 2-gentle IV fluid We will follow on clinical condition and cultures to further adjust medication if needed Thank you for this consultation we will follow the patient along with you Past Medical History Past Medical History: Hypertension Additional Past Medical History / Comment(s): illestomy, back pain, infected tooth, ear infection from ear wax, weakness, hard of hearing History of Any Multi-Drug Resistant Organisms: None Reported Past Surgical History: Bowel Resection, Cholecystectomy, Hysterectomy Additional Past Surgical History / Comment(s): illeostomy, left knee replacement, bowel resection Past Anesthesia/Blood Transfusion Reactions: No Reported Reaction Past Psychological History: No Psychological Hx Reported Smoking Status: Never smoker Past Alcohol Use History: None Reported Past Drug Use History: None Reported - Past Family History Mother Family Medical History: Diabetes Mellitus Father Family Medical History: Hypertension Additional Family Medical History / Comment(s): of heart attrack Medications and Allergies Home Medications Medication Instructions Recorded Confirmed Type Allopurinol [Zyloprim] 100 mg PO DAILY 02/15/19 06/04/21 History Ergocalciferol (Vitamin D2) 50,000 unit PO MOFR 02/15/19 06/04/21 History [Drisdol] Multivitamins, Thera [Multivitamin 1 tab PO DAILY 02/15/19 06/04/21 History (formulary)] Calcium Citrate 1,000 mg PO MOWEFR 06/04/21 06/04/21 History Cephalexin [Keflex] 500 mg PO BID 06/04/21 06/04/21 History Cyanocobalamin (Vitamin B-12) 1,000 mcg PO DAILY 06/04/21 06/04/21 History [Vitamin B-12] Garlic 1 tab PO DAILY 06/04/21 06/04/21 History Krill/[place]-3/Dha/Epa/Lipids 1 cap PO MOWEFR 06/04/21 06/04/21 History [Krill Oil 350 mg Softgel] Magnesium Glycintate 400mg 1 tab PO BID 06/04/21 06/04/21 History Tuhnzbsf-Ircrzutca-Vi Otic 4 drops RIGHT EAR QID 06/04/21 06/04/21 History [Cortisporin Otic Soln] Turmeric Root Extract [Turmeric] 500 mg PO DAILY 06/04/21 06/04/21 History predniSONE 1 mg PO TID 06/04/21 06/04/21 History Allergies Allergy/AdvReac Type Severity Reaction Status Date / Time acetaminophen [From Vicodin] Allergy Anaphylaxis Verified 06/04/21 19:27 ceftriaxone Allergy Swelling Verified 06/05/21 14:36 ciprofloxacin [From Cipro] Allergy Anaphylaxis Verified 06/04/21 19:27 codeine Allergy Anaphylaxis Verified 06/04/21 19:27 hydrocodone [From Vicodin] Allergy Anaphylaxis Verified 06/04/21 19:27 ibuprofen [From Motrin] Allergy Rash/Hives Verified 06/04/21 19:27 oxycodone [From Percocet] Allergy Anaphylaxis Verified 06/04/21 19:27 Penicillins Allergy Rash/Hives Verified 06/04/21 19:27 prednisone Allergy Anaphylaxis Verified 06/04/21 19:27 propoxyphene Allergy Anaphylaxis Verified 06/04/21 19:27 [From Darvocet-N] ramipril [From Altace] Allergy Anaphylaxis Verified 06/04/21 19:27 Physical Exam Vitals: Vital Signs Temp Pulse Pulse Resp BP BP Pulse Ox 06/05/21 12:11 98.4 F 75 17 123/73 99 06/05/21 08:30 18 06/05/21 07:48 98.6 F 74 17 133/66 98 06/05/21 02:51 98 F 60 18 114/80 98 06/05/21 01:25 71 18 98 06/04/21 14:34 98.4 F 88 18 127/65 98 Intake and Output 06/04/21 06/05/21 06/05/21 22:59 06:59 14:59 Other: Voiding Method Toilet Toilet # Voids 1 # Bowel Movements 1 Weight 54.431 kg Results CBC & Chem 7: 06/06/21 05:29 06/05/21 03:51 Labs: Abnormal Lab Results - Last 24 Hours (Table) 06/04/21 06/04/21 06/04/21 Range/Units 15:31 15:31 15:31 MCV 100.4 H (80.0-100.0) fL APTT 21.7 L (22.0-30.0) sec Sodium (137-145) mmol/L Chloride (98-107) mmol/L Carbon Dioxide (22-30) mmol/L BUN (7-17) mg/dL Creatinine (0.52-1.04) mg/dL Est GFR (CKD-EPI)AfAm (60.0-200.0) Est GFR (CKD-EPI)NonAf (60.0-200.0) BUN/Creatinine Ratio (12.00-20.00) Ratio Glucose (74-99) mg/dL Urine Appearance Cloudy H (Clear) Urine Protein Trace H (Negative) Ur Leukocyte Esterase Moderate H (Negative) Urine Bacteria Rare H (None) /hpf Urine Mucus Rare H (None) /hpf 06/04/21 06/05/21 06/05/21 Range/Units 15:31 03:51 03:51 MCV 100.3 H (80.0-100.0) fL APTT (22.0-30.0) sec Sodium 129 L 134 L (137-145) mmol/L Chloride 96 L (98-107) mmol/L Carbon Dioxide 20 L 21.3 L (22-30) mmol/L BUN 55 H 54.0 H (7-17) mg/dL Creatinine 1.72 H 1.6 H (0.52-1.04) mg/dL Est GFR (CKD-EPI)AfAm 33.9 L (60.0-200.0) Est GFR (CKD-EPI)NonAf 29.3 L (60.0-200.0) BUN/Creatinine Ratio 33.75 H (12.00-20.00) Ratio Glucose 111 H 140 H (74-99) mg/dL Urine Appearance (Clear) Urine Protein (Negative) Ur Leukocyte Esterase (Negative) Urine Bacteria (None) /hpf Urine Mucus (None) /hpf Microbiology - Last 24 Hours (Table) 06/04/21 19:39 Gram Stain - Preliminary Ear - Right Wound Culture - Preliminary
[2021-06-06] MEDS: MULTIVITAMINS, THERA 1 EACH TAB PO SCH (08:57)
[2021-06-06] MEDS: HEPARIN SODIUM,PORCINE/PF 5,000 UNIT/0.5 ML SYRINGE SQ SCH ×2 (08:57→21:09)
[2021-06-06] MEDS: CLINDAMYCIN 600 MG in DEXTROSE 5% IN WATER 50 ML IVPB SCH ×6 (08:57→23:42)
[2021-06-06] MEDS: allopurinoL 100 MG TAB PO SCH (08:58)
[2021-06-06] MEDS: MAGNESIUM OXIDE 400 MG TAB PO SCH ×2 (08:58→21:05)
[2021-06-06] MEDS: CYANOCOBALAMIN 500 MCG TAB PO SCH (08:58)
[2021-06-06] MEDS: LACTOBACILLUS ACIDOPH & BULGAR 1 EACH PACKET PO SCH ×2 (08:59→21:05)
--- NOTE | 2021-06-06 10:41 | CONS ---
CONSULTATION DATE OF SERVICE: 06/05/2021. REASON FOR CONSULT: Renal failure. HISTORY OF PRESENT ILLNESS: Patient is an 85-year-old female who has a history of hypertension with history of bowel resection and ileostomy and was admitted to the hospital with complaints of increased weakness, lightheadedness, dizziness, and low blood pressure. The patient has been unable to take oral antihypertensive medications due to issues with the ileostomy and lack of absorption and therefore she was placed on clonidine patch, but patient states that her blood pressure dropped significantly. She was around 70 to 80s for systolic blood pressure at the time of admission. Currently patient is maintained on IV fluids. She states that she is feeling better. Systolic blood pressure around 120-117 mmHg. No complaints of chest pains or shortness of breath. No significant nausea. No abdominal pain. Serum creatinine was 1.7 mg/dL with sodium of 129. Previous creatinine has been about 1.4 on 04/17/2021. Patient wants to go home. She states that she is feeling better now that she has received IV fluids. PAST MEDICAL HISTORY: Significant for hypertension, bowel resection, status post ileostomy with high output, chronic kidney disease with creatinine around 1.0. All the way back to 2018 with episodes of acute kidney injury with creatinine at 1.7 and 2.0 earlier in January of this year. Fibromyalgia rheumatica. SOCIAL HISTORY: Negative for smoking, drug abuse or alcohol abuse. MEDICATIONS: Medications at home prior to admission included prednisone, multivitamins, vitamin D2, Keflex, calcium, allopurinol. REVIEW OF SYSTEMS: As per HPI. Other systems negative. EXAMINATION: Comfortable, awake, alert, oriented x3, not in any acute distress. Blood pressure was 123/73 when she was seen. Heart rate about 80 per minute. Examination of the heart S1, S2. Examination of the lungs, bilateral breath sounds are heard. Decreased breath sounds at the bases. Abdomen is soft, nontender. Examination of lower extremities shows no evidence of edema. Ileostomy is intact. BONE PROCESS OPERATOR exam grossly intact. LAB: Show sodium 129, potassium 4.1, chloride 96, CO2 is 20, BUN 55, creatinine 1.7, hemoglobin 13.3 g/dL. UA shows negative protein, leukocyte esterase moderate, WBCs 3. ASSESSMENT: 1. Acute kidney injury secondary to low blood pressure, nonoliguric, maintained on IV fluids. 2. Hypotension associated with some degree of volume depletion as well as medications. The patient is not able to take p.o. blood pressure medications secondary to issues with absorption and high output ileostomy. She was therefore placed on clonidine patch which resulted in significant hypotension. The patient has received IV fluids. Blood pressure is much better. She states that she wants to go home. 3. History of hypertension. The patient is advised that she can take amlodipine and crush it and she can start with 5 mg daily, increased to 10 if blood pressure is uncontrolled at home. The patient has been monitoring her blood pressure at home. 4. Chronic kidney disease. Previous creatinine 1-1.2 mg/dL as high as 1.7 in January of 2021. This was mostly acute kidney injury. Patient has a small left kidney on ultrasound in February of 2021 with left kidney 7.9 cm, right kidney 10.9 cm. No significant obstruction was noted at that time. PLAN: Repeat labs today may continue with IV fluids. Patient was advised to stay overnight. However, she wants to go home. She is advised that she may go home with close monitoring of blood pressure and she will be given a script for amlodipine which she will take as crushed with most likely a small amount of applesauce and continue to monitor her breath blood pressure. Previously, she has tried losartan, which she had not crushed. Thank you for this consultation. Will continue to follow the patient with you during her hospitalization. HORACIO / SARAH EBTH: [id number] /
[2021-06-06 10:51] LABS: African American GFR (CKD) 39.9 (60.0-200.0); Anion Gap 11.2 mmol/L (4.00-12.00); BUN/Creat Ratio 27.86 Ratio (12.00-20.00); Calcium 9.6 mg/dL (8.7-10.3); Carbon Dioxide 23.8 mmol/L (21.6-31.8); Non-African American GFR(CKD) 34.4 (60.0-200.0); Potassium 3.9 mmol/L (3.5-5.5)
--- NOTE | 2021-06-06 12:32 | CDI ---
Documentation Clarification Form Date: 06/06/2021 12:21:08 PM From: Cecy Morales CCS, CCDS Admit Date: 06/04/2021 07:38:00 PM Patient Name: Aileen Ovlera Visit Number: [id number] Discharge Date: ATTENTION: The Clinical Documentation Specialists (CDI) and [facility] Coding Staff appreciate your assistance in clarifying documentation. Please respond to the clarification below the line at the bottom and electronically sign. The CDI & [facility] Coding staff will review the response and follow-up if needed. Please note: Queries are made part of the Legal Health Record. If you have any questions, please contact the author of this message via ITS. Dr. Tiffany Stone: Unspecified CKD is documented in the 06/06 Nephrology Consult as follows: Chronic kidney disease. Previous Creatinine 1-1.2 mg/dL as high as 1.7 in January of 2021. This was mostly OLGA. Patient has a small left kidney on US in February 2021 with left kidney 7.9 cm, right kidney 10.9 cm. Additional clarification regarding the stage of CKD is requested. History/Risk Factors per the 06/04 H/P: Bowel resection with Ileostomy. Home meds: Prednisone, Turmeric, Multivitamins, Mag Oxide, Vit B12, Keflex, Calcium Citrate. Clinical Indicators: Presented to the ED on 06/04 with Weakness. Recently started Keflex for an ear infection and also recently had a tooth extraction. Started a new BP med/patch after no result with oral tablets related to her Ileostomy. Had low grade fever at home, mild headache, not eating. Current BUN/CR/GFR 06/04 - 06/06: BUN: 55, 54.0, 39.0; Creatinine: 1.72, 1.6, 1.4; GFR 27, 29.3, 34.4 Historical GFR: 02/13/2014: 50 Treatment: IV Na Cl 500 mls @ 999 mls/hr q31M, IV Zofran 4 mg q6/prn, IV Na Cl 1,000 mls @ 75 mls/hr q13H, Heparin sq q12H, Mag Oxide 400 mg BID, IV Rocephin q24H, IV Clindamycin q8Hr. Please clarify the stage of the CKD, if known: [ ] CKD Stage 3 (GFR 30-59) [ ] CKD Stage 3a (GFR 45-59) [ ] CKD Stage 3b (GFR 30-44) [ ] CKD Stage 4 (GFR 15-29) [ ] CKD ruled out [ ] Other, please specify [ ] Unable to determine (Template Last revised: November 2020) stage 3b MTDD
--- NOTE | 2021-06-06 12:55 | PN ---
PROGRESS NOTE Patient is seen for followup for acute kidney injury, mostly prerenal. She is maintained on IV fluids. Creatinine has improved from 1.7 to 1.4. The patient developed fever yesterday with a temperature of 100.5 degrees Fahrenheit. She has been seen by Infectious Disease and started on Rocephin. She recently had right ear infection. Blood pressure remains on the lower side. On examination today, blood pressure 109/60, heart rate 79 per minute. She is afebrile. EXAMINATION OF THE HEART: S1 and S2. EXAMINATION OF LUNGS: Bilateral breath sounds are heard. ABDOMEN: Soft, nontender. LOWER EXTREMITIES: Examination of lower extremities shows no evidence of edema. DIRECTOR POWER EXAM: Grossly intact. Labs show sodium 139, potassium 3.9, BUN 39, creatinine 1.4, hemoglobin 12.2 g/dL. UA shows trace protein, moderate leukocyte esterase. ASSESSMENT: 1. Acute kidney injury, prerenal, currently improved with IV hydration. 2. Hypovolemic hyponatremia, improved with saline administration. 3. Hypotension. The patient's blood pressure improved with IV fluids. 4. Fever associated with recent right ear infection, being followed by Infectious Disease, maintained on clindamycin. 5. High output ostomy with volume depletion, currently improved volume status. PLAN: Continue with IV fluids. Encourage increased oral intake. MMODL / IJN: [id number] /
--- NOTE | 2021-06-06 17:04 | PN ---
PROGRESS NOTE DATE OF SERVICE: 06/06/2021 REASON FOR FOLLOWUP: Right otitis externa. INTERVAL HISTORY: The patient is afebrile. The patient still complains of some pain to the right ear. No worsening, though. No chest pain, shortness of breath or cough. No abdominal pain or diarrhea. PHYSICAL EXAMINATION: Blood pressure 127/90 with a pulse of 74, temperature 98.7. She is 98% on room air. GENERAL DESCRIPTION: General description is an elderly female lying in bed in no distress. HEENT EXAMINATION: is on. External examination: No obvious abnormality is noted. LUNGS: Unlabored breathing. Clear to auscultation anteriorly. HEART: S1, S2. Regular rate and rhythm. ABDOMEN: Soft. No tenderness. LABS: Hemoglobin is 12.1, white count 6.2, BUN of 39, creatinine 1.4. DIAGNOSTIC IMPRESSION AND PLAN: 1. Patient admitted to hospital with weakness in this patient who did have a recent disimpaction of wax from the right ear with some possible trauma/otitis externa. She does have MULTIPLE ANTIBIOTIC ALLERGIES. Currently covered with clindamycin; to continue for short course. 2. Positive urine culture with a Gram-negative; however, no significant urinary symptoms. Urine did not show pyuria, possible contamination or colonization. No need for antibiotic therapy for the positive UA. MMODL / IJN: [id number] /
[2021-06-06] MEDS: ACETAMINOPHEN TAB 325 MG TAB PO PRN (21:13)
[2021-06-07] MEDS: SODIUM CHLORIDE 0.9% 1,000 ML IV SCH (01:00)
--- NOTE | 2021-06-07 02:01 | P.PN ---
Subjective Progress Note Date: 06/06/21 This is an 85 year old female who was recently admitted with weakness and hyponatremia and being closely monitored. INfectious disease and nephrology following. Patient received IV ceftriaxone with possible allergic reaction noted and IV antibiotics switched to Clindamycin and being closely monitored. Patient preliminary urine cultures showing gram negative bacilli and awaiting finalyzed cultures to determine discharge antibiotics. Patient continued on gentle IV hydration of normal saline and sodium improved to 139 with a creatinine of 1.0. Patient states she continues to be weak but improving and continues with ear pain. Patient denies any chest pain, shortness of breath, or palpitations. Patient continues with right ear pain. Patient denies any nausea or vomiting and is tolerating diet. Patient is afebrile. Objective - Vital Signs Vital signs: Vital Signs Temp 98.3 F 06/06/21 20:43 Pulse 81 06/06/21 21:21 Resp 18 06/06/21 20:43 BP 107/62 06/06/21 20:43 Pulse Ox 98 06/06/21 12:19 Intake & Output 06/06/21 06/06/21 06/07/21 06:59 18:59 06:59 Intake Total 1360 Balance 1360 Intake: Intake, IV Titration 1000 Amount Clindamycin 600 mg In 100 Dextrose 5% in Water 50 ml @ 50 mls/hr IVPB Q8HR [facility] Rx#:[id number] Sodium Chloride 0.9% 1, 900 000 ml @ 75 mls/hr IV . [id number] Rx#:[id number] Oral 360 Other: Voiding Method Toilet Toilet # Voids 5 - Exam GENERAL: The patient is lying in bed. awake, alert and oriented x3. thin built HEENT: Pupils are round and equally reacting to light. EOMI. No scleral icterus. No conjunctival pallor. Normocephalic, atraumatic. No pharyngeal erythema. No thyromegaly. CARDIOVASCULAR: S1 and S2 muffled PULMONARY: Diminished breath sounds bilaterally with some scattered rhonchi noted. ABDOMEN: Soft, nontender, nondistended, normoactive bowel sounds. No palpable organomegaly. MUSCULOSKELETAL: No joint swelling or deformity. EXTREMITIES: No cyanosis, clubbing, or pedal edema. NEUROLOGICAL: alert and oriented x3. no focal deficits noted SKIN: No rashes. no petechiae. - Labs CBC & Chem 7: 06/06/21 05:29 06/06/21 05:29 Labs: Abnormal Lab Results - Last 24 Hours (Table) 06/06/21 06/06/21 Range/Units 05:29 05:29 RBC 3.59 L (3.80-5.40) m/uL BUN 39.0 H (9.0-27.0) mg/dL Est GFR (CKD-EPI)AfAm 39.9 L (60.0-200.0) Est GFR (CKD-EPI)NonAf 34.4 L (60.0-200.0) BUN/Creatinine Ratio 27.86 H (12.00-20.00) Ratio Glucose 117 H (70-110) mg/dL Microbiology - Last 24 Hours (Table) 06/04/21 20:43 Blood Culture - Preliminary Blood No Growth after 48 hours 06/04/21 19:39 Gram Stain - Final Ear - Right Wound Culture - Final 06/04/21 15:31 Urine Culture - Preliminary Urine,Voided Gram Neg Bacilli Assessment and Plan Assessment: acute renal failure with acute tubular necrosis with dehydration, present on admission hyponatremia generalized weakness right external otitis, rule out possible sepsis, present on admission history of recent wax removal history of bowel resection history of ileostomy full code Recommendations and discussion: Recommend to continue with current medications and symptomatic management. PT to evaluate. Patient to continue on IV abx with infectious disease following closely. Patient preliminary culture showing gram negative bacilli and awaiting finalization for discharge antibiotics. Patient states that she will be returning home once discharged. Prognosis is guarded. Possible discharge in 24 hours.
--- NOTE | 2021-06-07 08:38 | CDI ---
Documentation Clarification Form Date: 06/07/2021 08:21:13 AM From: Cecy Morales CCS, CCDS Admit Date: 06/04/2021 07:38:00 PM Patient Name: Aileen Olvera Visit Number: [id number] Discharge Date: ATTENTION: The Clinical Documentation Specialists (CDI) and [facility] Coding Staff appreciate your assistance in clarifying documentation. Please respond to the clarification below the line at the bottom and electronically sign. The CDI & [facility] Coding staff will review the response and follow-up if needed. Please note: Queries are made part of the Legal Health Record. If you have any questions, please contact the author of this message via ITS. Dr. Selwyn Vaughn: Sepsis is documented in the following notes: 06/04 H/P: rule out the possibility of sepsis. Assessment: OLGA with ATN & Dehydration possibly. Hyponatremia. Possible external otitis. 06/05 Attending Progress Note: Right external otitis, rule out sepsis. 06/06 Attending Progress Note: Right external otitis, rule out possible sepsis, present on admission, history of recent wax removal. Additional clarification regarding the etiology/cause of the clinical indicators is requested. History/Risk Factors per the 06/04 H/P: Bowel resection and Ileostomy Clinical Indicators: Presented to the ED on 06/04 with generalized weakness since previous . Was started on Keflex for an ear infection and also a tooth extraction (upper left molar). Also recently started a new blood pressure patch after no results with oral tablets related to her Ileostomy. Low grade fever at home: 99. Mild Headache & not eating. ED Clinical Impression: Weakness, Hyponatremia 06/04 VS: T 98.4 - 100.5 on 06/05, P 88, R 18, BP 127/65 - 116/62 on 06/05, PO 98 - 91 on 06/06 RA 06/04 LAB: WBC 8.7, Neut 68, Lymph 21; Na 129, Cl 96, CO2 20, BUN 55, Cr 1.72, Glucose 111 06/04 UA: cloudy, trace Protein, Negative Nitrite, Moderate Esterase. 06/05 LAB: WBC 7.8, Neut 63, Lymph 26, ESR 43; Na 134 Cultures: 06/04 Urine (Preliminary): Gram Negative Bacilli 06/04 Right Ear Wound Culture (Final): Negative 06/04 Blood Culture (Preliminary): Negative after 48 hours Treatment 06/04: IV Na Cl 500 mls @ 999 mls/hr q31M, IV Na Cl 1,000 mls @ 75 mls/hr q13H, Heparin SQ 06/05: IV Rocephin 50 mls @ 100 mls/hr q24H 06/06: IV Clindamycin 54 mls @ 50 mls/hr q8H 06/05 Infectious Disease Consult (for Right Otitis Externa): Possible otitis externa after removal of impacted wax, ear canal looks inflamed, no inflammation of external ear, recent tooth extraction w/no symptoms. In your professional opinion, please clarify if these findings signify one of the following conditions: [ ] Sepsis POA [ ] Sepsis, Not POA [ ] Sepsis ruled out [ ] Severe Sepsis with organ failure [ ] Other, please specify [ ] Unable to determine (Template Last Reviewed: November 2020) Sepsis ruled out MTDD
[2021-06-07] MEDS ORDERED: ERGOCALCIFEROL 1,250 MCG (50,000 IU) CAPSULE PO SCH (09:00)
[2021-06-07] MEDS: CLINDAMYCIN 600 MG in DEXTROSE 5% IN WATER 50 ML IVPB SCH ×2 (11:13)
[2021-06-07] MEDS: allopurinoL 100 MG TAB PO SCH (11:15)
[2021-06-07] MEDS: CYANOCOBALAMIN 500 MCG TAB PO SCH (11:16)
[2021-06-07] MEDS: HEPARIN SODIUM,PORCINE/PF 5,000 UNIT/0.5 ML SYRINGE SQ SCH (11:20)
[2021-06-07] MEDS: MAGNESIUM OXIDE 400 MG TAB PO SCH (11:21)
[2021-06-07] MEDS: MULTIVITAMINS, THERA 1 EACH TAB PO SCH (11:21)
[2021-06-07] MEDS: LACTOBACILLUS ACIDOPH & BULGAR 1 EACH PACKET PO SCH (11:46)
[2021-06-07 12:08] VITALS: BP 144/76; PULSE 75; RESP 19; TEMP 98.9
[2021-06-07] MEDS: CALCIUM CARBONATE 500 MG CHEWABLE PO SCH (12:20)
--- NOTE | 2021-06-07 16:05 | P.DS ---
Providers Date of admission: 06/04/21 19:38 Expected date of discharge: 06/07/21 Attending physician: Selwyn Vaughn Consults: 06/04/21 20:02 Consult Physician Routine Consulting Provider: Tiffany Stone Consult Reason/Comments: arf Do you want consulting provider notified?: Yes 06/04/21 20:05 Consult Physician Routine Consulting Provider: Cipriano Douglass Consult Reason/Comments: ext otitis, sepsis? multiple allergies Do you want consulting provider notified?: Yes Primary care physician: Blaise Shirley MD Hospital Course: Final diagnosis acute renal failure with acute tubular necrosis with dehydration, present on admission hyponatremia Acute urinary tract infection with culture showing pseudomonas aeruginosa generalized weakness right external otitis, with possible sepsis, present on admission history of recent wax removal history of bowel resection history of ileostomy full code Discharge disposition Patient is being discharged in a stable condition with guarded prognosis to [place] for continued alcohol rehab. Patient will follow-up with his primary care provider in the outpatient setting upon discharge. Total time taken is greater than 35 minutes. Hospital course This is a 85-year-old female who was recently admitted with weakness and hyponatremia being closely monitored. Patient was started on IV antibiotic therapy in the form of ceftriaxone with possible ALLERGIC reaction and antibiotics were changed to clindamycin and patient continued to improve with no signs of ALLERGIC reaction noted. Patient's urine cultures finalized showing ps eudomonas aeruginosa with wound cultures of the ear and blood cultures remaining negative. Patient has multiple ALLERGIES to antibiotics and will continue with oral clindamycin 300 mg every 8 hours for the next 5 days. Recommend ENT consult outpatient along with primary care provider follow-up on discharge. Patient is adamant about going home and awaiting to be discharged. Cultures finalized today. Currently no reports of chest pain, shortness of breath, or palpitations. Patient is afebrile. No reports of nausea or vomiting and patient is tolerating diet. Patient will be discharged home today. On exam vital signs are stable. Cardio S1, S2 are muffled. Respiratory system shows diminished breath sounds at the bases with no wheezing or rhonchi noted. Abdomen is soft and nontender. Nervous system shows no focal deficits. Please refer to medication reconciliation sheet for a list of medications. Patient Condition at Discharge: Stable Plan - Discharge Summary Discharge Rx Participant: No New Discharge Prescriptions: New Lactobacillus Acidoph & Bulgar [Lactinex] 1 each PO BID #60 packet Clindamycin [Cleocin] 300 mg PO Q8H 5 Days #30 cap Acetaminophen Tab [Tylenol] 650 mg PO Q6HR PRN tab PRN Reason: Fever And/ Or Pain Continue Ergocalciferol (Vitamin D2) [Drisdol (50,000 Iu)] 50,000 unit PO MOFR Multivitamins, Thera [Multivitamin (formulary)] 1 tab PO DAILY Allopurinol [Zyloprim] 100 mg PO DAILY Garlic 1 tab PO DAILY Krill/[place]-3/Dha/Epa/Lipids [Krill Oil 350 mg Softgel] 1 cap PO MOWEFR Calcium Citrate 1,000 mg PO MOWEFR Magnesium Glycintate 400mg 1 tab PO BID Cyanocobalamin (Vitamin B-12) [Vitamin B-12] 1,000 mcg PO DAILY predniSONE 1 mg PO TID Rnuywxlf-Azixeipyy-Dg Otic [Cortisporin Otic Soln] 4 drops RIGHT EAR QID Turmeric Root Extract [Turmeric] 500 mg PO DAILY Discontinued Cephalexin [Keflex] 500 mg PO BID Discharge Medication List Allopurinol [Zyloprim] 100 mg PO DAILY 02/15/19 [History] Ergocalciferol (Vitamin D2) [Drisdol (50,000 Iu)] 50,000 unit PO MOFR 02/15/19 [History] Multivitamins, Thera [Multivitamin (formulary)] 1 tab PO DAILY 02/15/19 [History] Calcium Citrate 1,000 mg PO MOWEFR 06/04/21 [History] Cyanocobalamin (Vitamin B-12) [Vitamin B-12] 1,000 mcg PO DAILY 06/04/21 [History] Garlic 1 tab PO DAILY 06/04/21 [History] Krill/[place]-3/Dha/Epa/Lipids [Krill Oil 350 mg Softgel] 1 cap PO MOWEFR 06/04/21 [History] Magnesium Glycintate 400mg 1 tab PO BID 06/04/21 [History] Bwwqbmel-Joixfaviy-Pb Otic [Cortisporin Otic Soln] 4 drops RIGHT EAR QID 06/04/21 [History] Turmeric Root Extract [Turmeric] 500 mg PO DAILY 06/04/21 [History] predniSONE 1 mg PO TID 06/04/21 [History] Acetaminophen Tab [Tylenol] 650 mg PO Q6HR PRN tab 06/07/21 [Rx] Clindamycin [Cleocin] 300 mg PO Q8H 5 Days #30 cap 06/07/21 [Rx] Lactobacillus Acidoph & Bulgar [Lactinex] 1 each PO BID #60 packet 06/07/21 [Rx] Follow up Appointment(s)/Referral(s): Blaise Shirley MD [Primary Care Provider] - 1-2 days (call ofice for follow up appt) Patient Instructions/Handouts: Clindamycin (By mouth), Probiotic (By mouth), Urinary Tract Infection in Women (DC) Activity/Diet/Wound Care/Special Instructions: Activity Limited until follow-up follow up with Primary care provider upon discharge Medications as prescribed continue current diet Discharge Disposition: HOME SELF-CARE
--- NOTE | 2021-06-07 16:34 | PN ---
PROGRESS NOTE DATE OF SERVICE: 06/07/2021 REASON FOR FOLLOWUP: 1. Right otitis externa. 2. Positive urine culture likely asymptomatic bacteriuria. 3. MULTIPLE ANTIBIOTIC ALLERGIES. INTERVAL HISTORY: Patient is afebrile. The patient is feeling better. Breathing comfortably. Overall pain and discomfort to the right heel has decreased. No drainage. No chest pain, shortness of breath or cough. No abdominal pain. Denies any urinary burning or frequency or suprapubic pain. PHYSICAL EXAMINATION: Blood pressure 144/76, pulse of 75. Temperature 97.9. She is 100% on room air. General description is an elderly female lying in bed in no distress. Respiratory system: Unlabored breathing, clear to auscultation anteriorly. Heart S1, S2. Regular rate and rhythm. Abdomen soft, no tenderness. LABS: No new labs have been obtained today. Culture from the ER has been negative. Urine showing Pseudomonas. DIAGNOSTIC IMPRESSION AND PLAN: 1. Patient with right otitis externa after the patient did have a yeast infection of , could not tolerate Keflex or Rocephin. She did well on the clindamycin, will give a short course of oral Clinda on discharge. 2. Positive urine culture with Pseudomonas, likely asymptomatic bacteriuria as the patient to go along with this. No need for antibiotic on discharge. MMODL / IJN: [id number] /
== END 2021-06-07 15:29 | disposition home or self-care (01) | DRG 683 ==
LOC: EC 14:31 → 5NMEDONC 19:38
PROVIDERS: ADMIT Hospitalist; ATTEND Hospitalist
DX: N17.0 Acute kidney failure with tubular necrosis (principal); N39.0 Urinary tract infection, site not specified; E87.1 Hypo-osmolality and hyponatremia; I12.9 Hypertensive chronic kidney disease with stage 1 through stage 4 chronic kidney disease, or unspecified chronic kidney disease; I95.9 Hypotension, unspecified; N18.32 Chronic kidney disease, stage 3b; B96.5 Pseudomonas (aeruginosa) (mallei) (pseudomallei) as the cause of diseases classified elsewhere; E86.0 Dehydration; E86.1 Hypovolemia; R26.9 Unspecified abnormalities of gait and mobility; H60.91 Unspecified otitis externa, right ear; H66.91 Otitis media, unspecified, right ear; B37.9 Candidiasis, unspecified; H91.90 Unspecified hearing loss, unspecified ear; M79.7 Fibromyalgia; Z79.899 Other long term (current) drug therapy; Z82.49 Family history of ischemic heart disease and other diseases of the circulatory system; Z83.3 Family history of diabetes mellitus; Z88.1 Allergy status to other antibiotic agents; Z90.49 Acquired absence of other specified parts of digestive tract; Z90.710 Acquired absence of both cervix and uterus; Z93.2 Ileostomy status; Z96.652 Presence of left artificial knee joint; Z88.6 Allergy status to analgesic agent; Z88.5 Allergy status to narcotic agent; Z98.890 Other specified postprocedural states
CPT/HCPCS: 36415; 71046; 80048; 80053; 81001; 82533; 83605; 83735; 84484; 85025; 85610; 85652; 85730; 86140; 87040; 87070; 87077; 87086; 87186; 87205; 93005; 96360; 96361; 99285

== ENCOUNTER → 2023-01-22 | Outpatient (CLI) | payer MEDICARE ==
--- NOTE | 2023-01-29 07:18 | CE ---
CARDIAC ELECTROPHYSIOLOGY REPORT STUDY PERFORMED: A 24-hour Holter monitor. REFERRING PHYSICIAN: Dr. Molina. FINDINGS: The patient was monitored for 24 hours. The baseline rhythm appeared to be sinus mechanism with a minimum heart rate of 51 beats per minute, max is 112 beats per minute and average of 68 beats per minute. No evidence of any atrial fibrillation or atrial flutter. No evidence of any significant signs of sinus pause or sinus arrest. No evidence of any advanced AV block. No diary was attached to the study. CONCLUSION: This is a normal 24-hour Holter monitor. The baseline rhythm appeared to be sinus mechanism. No evidence of any significant ventricular or supraventricular arrhythmia noted. No evidence of any advanced AV block noted. No evidence of any sinus pause or sinus arrest. MMODL / IJN: [id number] /
== END | disposition home or self-care (01) ==
LOC: RADECHMAIN 12:02
PROVIDERS: ATTEND Family Medicine
DX: N18.30 Chronic kidney disease, stage 3 unspecified (principal); H81.10 Benign paroxysmal vertigo, unspecified ear; R00.1 Bradycardia, unspecified
CPT/HCPCS: 93225; 93226

== ENCOUNTER 2023-08-23 07:51 | Observation (INO) | payer MEDICARE ==
[2023-08-23] MEDS ORDERED: SODIUM CHLORIDE 0.9% 500 ML 500 ML IV ONE (08:40)
[2023-08-23] MEDS ORDERED: ONDANSETRON 4 MG/2 ML VIAL IVP STA (08:40)
[2023-08-23] MEDS ORDERED: CYCLOBENZAPRINE 5 MG TAB PO STA (08:41)
[2023-08-23 09:13] LABS: Basophils % (A) 0 %; Eosinophils # (A) 0.1 k/uL (0-0.7); Eosinophils % (A) 3 %; HCT 35.4 % (34.0-46.0); HGB 12.3 gm/dL (11.4-16.0); Lymphocytes # (A) 1.8 k/uL (1.0-4.8); Lymphocytes % (A) 38 %; MCH 33.5 pg (25.0-35.0); MCHC 34.7 g/dL (31.0-37.0); MCV 96.5 fL (80.0-100.0); Mean Platelet Volume 7.8; Monocytes # (A) 0.3 k/uL (0-1.0); Monocytes % (A) 6 %; Neutrophils # (A) 2.4 k/uL (1.3-7.7); Neutrophils % (A) 51 %; Platelet Count 205 k/uL (150-450); RBC 3.67 m/uL (3.80-5.40); RDW 13.3 % (11.5-15.5); WBC 4.8 k/uL (3.8-10.6)
[2023-08-23 09:32] LABS: ALT 32 U/L (4-34); AST 40 U/L (14-36); African American GFR (CKD) 58 (>60 ml/min/1.73 sqM); Albumin 3.8 g/dL (3.5-5.0); Alkaline Phosphatase 41 U/L (38-126); Anion Gap 10 mmol/L; Blood Urea Nitrogen 25 mg/dL (7-17); Calcium 9.5 mg/dL (8.4-10.2); Carbon Dioxide 23 mmol/L (22-30); Chloride 90 mmol/L (98-107); Glucose 94 mg/dL (74-99); Non-African American GFR(CKD) 50 (>60 ml/min/1.73 sqM); Potassium 4.9 mmol/L (3.5-5.1); Sodium 123 mmol/L (137-145); Total Protein 6.4 g/dL (6.3-8.2)
[2023-08-23] MEDS ORDERED: KETOROLAC 15 MG/ML 1 ML VIAL IVP STA (09:47)
--- NOTE | 2023-08-23 09:47 | XR ---
EXAMINATION TYPE: XR Hip Bilateral Complete DATE OF EXAM: 08/23/2023 9:43 AM CLINICAL INDICATION:Female, 88 years old with history of hip pain; [facility] COMPARISON: None. TECHNIQUE: The bilateral hip was examined in the frontal and lateral projections and a AP pelvis. FINDINGS: No evidence for acute process, joint dislocation or significant soft tissue swelling. Mild osteophytic changes of the bilateral hip joints, left greater than right. Atherosclerotic disease of the arterial vessels present. IMPRESSION: 1. No acute process. 2. 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
--- NOTE | 2023-08-23 09:49 | XR ---
EXAMINATION TYPE: XR lumbar spine 2 or 3V DATE OF EXAM: 08/23/2023 9:43 AM CLINICAL INDICATION:Female, 88 years old with history of hip pain; [facility] COMPARISON: None TECHNIQUE: Frontal, lateral and coned in L5-S1 lateral views of the spine. FINDINGS: No evidence of any acute osseous pathology. No evidence of loss of vertebral body height i s seen. There is normal alignment of the lumbar vertebral bodies. Moderate multilevel degenerative ch anges of the lumbar spine are appreciated, most pronounced in the lower lumbar spine. IMPRESSION: 1. No acute fracture. 2. Moderate multilevel disc degeneration.
--- NOTE | 2023-08-23 09:57 | ED ---
General Adult HPI - General Chief complaint: Back Pain/Injury Stated complaint: Back pain Time Seen by Provider: 08/23/23 08:05 Source: patient, RN notes reviewed Mode of arrival: wheelchair Limitations: no limitations - History of Present Illness Initial comments: 88-year-old female with no significant past medical history presents the emergency department with a chief complaint of right hip pain patient reports right hip pain that is sharp and worse with movement. She denies any injury or trauma. She reports that she has received 2 doses of steroids with symptomatic improvement from her doctor on outpatient basis. She denies any num bness, tingling, weakness in the extremities. She's been taking Tylenol at home without symptomatic Improvement. - Related Data Home Medications Medication Instructions Recorded Confirmed Ergocalciferol (Vitamin D2) 50,000 unit PO MOWEFR 02/15/19 08/23/23 [Drisdol (50,000 Iu)] Multivitamins, Thera [Multivitamin 1 tab PO Q48H 02/15/19 08/23/23 (formulary)] allopurinoL [Zyloprim] 100 mg PO DAILY 02/15/19 08/23/23 Cyanocobalamin (Vitamin B-12) 1,000 mcg PO DAILY 06/04/21 08/23/23 [Vitamin B-12] Krill/[place]-3/Dha/Epa/Lipids 1 cap PO TUTH 06/04/21 08/23/23 [Krill Oil 350 mg Softgel] predniSONE 2 mg PO DAILY 06/04/21 08/23/23 Aspirin EC [Ecotrin Low Dose] 81 mg PO DAILY 08/23/23 08/23/23 Cholecalciferol [Vitamin D3 (25 50 mcg PO TUTH 08/23/23 08/23/23 Mcg = 1000 Iu)] Famotidine [Pepcid] 20 mg PO BID 08/23/23 08/23/23 Folic Acid 1 mg PO DAILY 08/23/23 08/23/23 Magnesium Glycinate 350 Mg 350 mg PO BID 08/23/23 08/23/23 Ondansetron Odt [Zofran Odt] 4 mg PO Q8HR PRN 08/23/23 08/23/23 calcitrioL [Calcitriol] 0.25 mcg PO TUTH 08/23/23 08/23/23 metHOTREXate sodium 2.5 mg PO TH 08/23/23 08/23/23 Previous Rx's Medication Instructions Recorded Acetaminophen Tab [Tylenol] 650 mg PO Q6HR PRN tab 06/07/21 Allergies Allergy/AdvReac Type Severity Reaction Status Date / Time ceftriaxone Allergy Swelling Verified 08/23/23 12:00 ciprofloxacin [From Cipro] Allergy Anaphylaxis Verified 08/23/23 12:00 codeine Allergy Anaphylaxis Verified 08/23/23 12:00 hydrocodone [From Vicodin] Allergy Anaphylaxis Verified 08/23/23 12:00 ibuprofen [From Motrin] Allergy Rash/Hives Verified 08/23/23 12:00 oxycodone [From Percocet] Allergy Anaphylaxis Verified 08/23/23 12:00 Penicillins Allergy Rash/Hives Verified 08/23/23 12:00 prednisone Allergy Anaphylaxis Verified 08/23/23 12:00 propoxyphene Allergy Anaphylaxis Verified 08/23/23 12:00 [From Darvocet-N] ramipril [From Altace] Allergy Anaphylaxis Verified 08/23/23 12:00 Review of Systems ROS Statement: Those systems with pertinent positive or pertinent negative responses have been documented in the HPI. ROS Other: All systems not noted in ROS Statement are negative. Past Medical History Past Medical History: Hypertension Additional Past Medical History / Comment(s): illestomy, back pain, infected tooth, ear infection from ear wax, weakness, hard of hearing History of Any Multi-Drug Resistant Organisms: None Reported Past Surgical History: Bowel Resection, Cholecystectomy, Hysterectomy Additional Past Surgical History / Comment(s): illeostomy, left knee replacement, bowel resection Past Anesthesia/Blood Transfusion Reactions: No Reported Reaction Past Psychological History: No Psychological Hx Reported Smoking Status: Never smoker Past Alcohol Use History: None Reported Past Drug Use History: None Reported - Past Family History Mother Family Medical History: Diabetes Mellitus Father Family Medical History: Hypertension Additional Family Medical History / Comment(s): of heart attrack General Exam - General Exam Comments Initial Comments: General: Alert, in no acute distress Head: atraumatic normocephalic. Eyes PERRL, EOMI intact, mucous membranes moist Respiratory: Lungs clear to auscultation bilaterally Cardiovascular: Heart rate regular rate and rhythm Abdominal: Soft without guarding or rebound Extremities: Normal inspection with full range of motion and normal capillary refill Neuroogic: alert and oriented 3, CN II-XII intact, able to ambulate with steady gait Skin: warm dry and intact with normal color Limitations: no limitations Course Vital Signs 08/23/23 08/23/23 07:52 11:58 Temperature 98.7 F 98.0 F Pulse Rate 67 79 Respiratory 16 18 Rate Blood Pressure 143/80 123/90 O2 Sat by Pulse 100 100 Oximetry - Reevaluation(s) Reevaluation #1: 08/23/23 10:33 Patient reevaluated. Updated on x-ray results. Patient reports medical improvement status post Toradol. Medical Decision Making - Medical Decision Making Was pt. sent in by a medical professional or institution (, PA, REAL ESTATE PROFESSIONAL, urgent care, hospital, or correction...) When possible be specific @ -[No] Did you speak to anyone other than the patient for history (EMS, parent, family, police, friend...)? What history was obtained from this source @ -[No] Did you review nursing and triage notes (agree or disagree)? Why? @ -[I reviewed and agree with nursing and triage notes] Were old charts reviewed (outside hosp., previous admission, EMS record, old EKG, old radiological studies, urgent care reports/EKG's, correction records)? Report findings @ -[No old charts were reviewed] Differential Diagnosis (chest pain, altered mental status, abdominal pain women, abdominal pain men, vaginal bleeding, weakness, fever, dyspnea, syncope, headache, dizziness, GI bleed, back pain, seizure, CVA, palpatations, mental health, musculoskeletal)? @ -[not applicable] EKG interpreted by me (3pts min.). @ -[As above] X-rays interpreted by me (1pt min.). @ -yes CT interpreted by me (1pt min.). @ -[None done] U/S interpreted by me (1pt. min.). @ -[None done] What testing was considered but not performed or refused? (CT, X-rays, U/S, labs)? Why? @ -[None] What meds were considered but not given or refused? Why? @ -[None] Did you discuss the management of the patient with other professionals (professionals i.e. , PA, REAL ESTATE PROFESSIONAL, lab, RT, psych nurse, hospice social worker, opinion polls survey worker, teacher, correctional officer lieutenant, case fitter)? Give summary @ -Dr. Stearns Was smoking cessation discussed for >3mins.? @ -[No] Was critical care preformed (if so, how long)? @ -[No] Were there social determinants of health that impacted care today? How? (Homelessness, low income, unemployed, alcoholism, drug addiction, transportation, low edu. Level, literacy, decrease access to med. care, shelter, rehab)? @ -[No] Was there de-escalation of care discussed even if they declined (Discuss DNR or withdrawal of care, Hospice)? DNR status @ -[No] What co-morbidities impacted this encounter? (DM, HTN, Smoking, COPD, CAD, Cancer, CVA, ARF, Chemo, Hep., AIDS, mental health diagnosis, sleep apnea, morbid obesity)? @ -[None] Was patient admitted / discharged? Hospital course, mention meds given and route, prescriptions, significant lab abnormalities, going to OR and other pertinent info. @ -Admission. This is an 88-year-old female with no significant past medical history presents the emergency department with a chief complaint of right hip pain. Patient had a thorough history and physical exam performed while in the ED. His oral exam is essentially unremarkable. Heart rate regular rate and rhythm, lungs clear to auscultation bilaterally abdomen soft and nontender. Patient is able to ambulate with minimal assistance. She is able to move all extremities. Patient had x-rays performed of her bilateral hips and lumbar spine which were unremarkable and negative for any dislocation or fracture. Patient laboratory studies which revealed WBC 14.8, hemoglobin 12.3 sodium is 123, potassium 4.9, BUN 25, creatinine 1.01 Urinalysis negative. Patient was provided Toradol, Flexeril, IV fluids with symptomatic improvement. Patient and family members are updated on results and agreeable with the plan for admission and further observation. Case discussed with Dr. Stearns who agree s and accepts the patient. Case is discussed with KALE Bower who agrees with plan of care Undiagnosed new problem with uncertain prognosis? @ -[No] Drug Therapy requiring intensive monitoring for toxicity (Heparin, Nitro, Insulin, Cardizem)? @ -[No] Were any procedures done? @ -[No] Diagnosis/symptom? @ -Right hip Pain - Hyponatremia Acute, or Chronic, or Acute on Chronic? @ -Acute Uncomplicated (without systemic symptoms) or Complicated (systemic symptoms)? @ -Uncomplicated Side effects of treatment? @ -[No] Exacerbation, Progression, or Severe Exacerbation? @ -[No] Poses a threat to life or bodily function? How? (Chest pain, [place], [place], pneumonia, PE, COPD, DKA, ARF, appy, cholecystitis, CVA, Diverticulitis, Homicidal, Suicidal, threat to staff... and all critical care pts) @ -Yes, - Lab Data Result diagrams: 08/23/23 08:55 08/23/23 08:55 Lab Results 08/23/23 08/23/23 08/23/23 Range/Units 08:55 08:55 08:55 WBC 4.8 (3.8-10.6) k/uL RBC 3.67 L (3.80-5.40) m/uL Hgb 12.3 (11.4-16.0) gm/dL Hct 35.4 (34.0-46.0) % MCV 96.5 (80.0-100.0) fL MCH 33.5 (25.0-35.0) pg MCHC 34.7 (31.0-37.0) g/dL RDW 13.3 (11.5-15.5) % Plt Count 205 (150-450) k/uL MPV 7.8 Neutrophils % 51 % Lymphocytes % 38 % Monocytes % 6 % Eosinophils % 3 % Basophils % 0 % Neutrophils # 2.4 (1.3-7.7) k/uL Lymphocytes # 1.8 (1.0-4.8) k/uL Monocytes # 0.3 (0-1.0) k/uL Eosinophils # 0.1 (0-0.7) k/uL Basophils # 0.0 (0-0.2) k/uL Sodium 123 L (137-145) mmol/L Potassium 4.9 (3.5-5.1) mmol/L Chloride 90 L (98-107) mmol/L Carbon Dioxide 23 (22-30) mmol/L Anion Gap 10 mmol/L BUN 25 H (7-17) mg/dL Creatinine 1.01 (0.52-1.04) mg/dL Est GFR (CKD-EPI)AfAm 58 (>60 ml/min/1.73 sqM) Est GFR (CKD-EPI)NonAf 50 (>60 ml/min/1.73 sqM) Glucose 94 (74-99) mg/dL Calcium 9.5 (8.4-10.2) mg/dL Total Bilirubin 1.0 (0.2-1.3) mg/dL AST 40 H (14-36) U/L ALT 32 (4-34) U/L Alkaline Phosphatase 41 (38-126) U/L Total Protein 6.4 (6.3-8.2) g/dL Albumin 3.8 (3.5-5.0) g/dL Urine Color Light Yellow Urine Appearance Clear (Clear) Urine pH 6.0 (5.0-8.0) Ur Specific [place] 1.012 (1.001-1.035) Urine Protein Negative (Negative) Urine Glucose (UA) Negative (Negative) Urine Ketones Negative (Negative) Urine Blood Negative (Negative) Urine Nitrite Negative (Negative) Urine Bilirubin Negative (Negative) Urine Urobilinogen <2.0 (<2.0) mg/dL Ur Leukocyte Esterase Negative (Negative) Disposition Clinical Impression: Hyponatremia, Weakness, Hip pain Disposition: HOME SELF-CARE Condition: Stable Is patient prescribed a controlled substance at d/c from ED?: No Time of Disposition: 10:58
[2023-08-23] MEDS ORDERED: NALOXONE 0.4 MG/ML 1 ML VIAL IV PRN (10:55)
[2023-08-23] MEDS: SODIUM CHLORIDE 0.9% 1,000 ML IV SCH (11:14)
--- NOTE | 2023-08-23 11:50 | P.CNOR ---
History of Present Illness - [facility] Consult date: 08/23/23 Consult reason: joint pain (Right hip pain) History of present illness: Patient is an 88-year-old female who was evaluated today [facility] for right hip pain. Patient states that she's been doing with this for quite some time, she has been placed on 2 separate steroid tapers by her primary care doctor which provided minimal relief. There is no significant trauma noted. Imaging and lab tests were done, patient was found to be very hyponatremic. Patient was admitted to the hospital under internal medicine, orthopedics was consulted with regards to pain. Patient was evaluated at bedside in the ER, both daughter and present. Patient prescribed comfortable while lying still. She notes most the pain on the lateral aspect of her right hip. She notices pain with direct contact to that area along with weightbearing. She states no recent trauma. She does have a history of a previous left femur fracture which she underwent a significant procedure for 20 years ago, although hardware is been thus removed, she did not up having her left knee replaced. Patient denies any numbness or tingling to the bilateral lower extremity Xarelto per extremities at this time. She does h ave chronic foot drop on the right side. Patient admits to some back pain that has been there for years but nothing acute. 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 She denies any loss of urine function. She denies any numbness or tingling to the genital or perineal region. Review of Systems Constitutional: Reports as per HPI Past Medical History Past Medical History: Hypertension Additional Past Medical History / Comment(s): illestomy, back pain, infected tooth, ear infection from ear wax, weakness, hard of hearing History of Any Multi-Drug Resistant Organisms: None Reported Past Surgical History: Bowel Resection, Cholecystectomy, Hysterectomy Additional Past Surgical History / Comment(s): illeostomy, left knee replaceme nt, bowel resection Past Anesthesia/Blood Transfusion Reactions: No Reported Reaction Past Psychological History: No Psychological Hx Reported Smoking Status: Never smoker Past Alcohol Use History: None Reported Past Drug Use History: None Reported - Past Family History Mother Family Medical History: Diabetes Mellitus Father Family Medical History: Hypertension Additional Family Medical History / Comment(s): of heart attrack Medications and Allergies Home Medications Medication Instructions Recorded Confirmed Type Ergocalciferol (Vitamin D2) 50,000 unit PO MOFR 02/15/19 06/04/21 History [Drisdol (50,000 Iu)] Multivitamins, Thera [Multivitamin 1 tab PO DAILY 02/15/19 06/04/21 History (formulary)] allopurinoL [Zyloprim] 100 mg PO DAILY 02/15/19 06/04/21 History Calcium Citrate 1,000 mg PO MOWEFR 06/04/21 06/04/21 History Cyanocobalamin (Vitamin B-12) 1,000 mcg PO DAILY 06/04/21 06/04/21 History [Vitamin B-12] Garlic 1 tab PO DAILY 06/04/21 06/04/21 History Krill/[place]-3/Dha/Epa/Lipids 1 cap PO MOWEFR 06/04/21 06/04/21 History [Krill Oil 350 mg Softgel] Magnesium Glycintate 400mg 1 tab PO BID 06/04/21 06/04/21 History [id number]-Tthhecpbp-Vb Otic 4 drops RIGHT EAR QID 06/04/21 06/04/21 History [Cortisporin Otic Soln] Turmeric Root Extract [Turmeric] 500 mg PO DAILY 06/04/21 06/04/21 History predniSONE 1 mg PO TID 06/04/21 06/04/21 History Acetaminophen Tab [Tylenol] 650 mg PO Q6HR PRN tab 06/07/21 Rx Clindamycin [Cleocin] 300 mg PO Q8H 5 Days #30 cap 06/07/21 Rx Lactobacillus Acidoph & [place] 1 each PO BID #60 packet 06/07/21 Rx [Lactinex] Allergies Allergy/AdvReac Type Severity Reaction Status Date / Time acetaminophen [From Vicodin] Allergy Anaphylaxis Verified 08/23/23 07:55 ceftriaxone Allergy Swelling Verified 08/23/23 07:55 ciprofloxacin [From Cipro] Allergy Anaphylaxis Verified 08/23/23 07:55 codeine Allergy Anaphylaxis Verified 08/23/23 07:55 hydrocodone [From Vicodin] Allergy Anaphylaxis Verified 08/23/23 07:55 ibuprofen [From Motrin] Allergy Rash/Hives Verified 08/23/23 07:55 oxycodone [From Percocet] Allergy Anaphylaxis Verified 08/23/23 07:55 Penicillins Allergy Rash/Hives Verified 08/23/23 07:55 prednisone Allergy Anaphylaxis Verified 08/23/23 07:55 propoxyphene Allergy Anaphylaxis Verified 08/23/23 07:55 [From Darvocet-N] ramipril [From Altace] Allergy Anaphylaxis Verified 08/23/23 07:55 Physical Examination Gen. orthopedic exam: No obvious open lesions or sores are present throughout bilateral lower extremities. Well-healed incision over the anterior aspect of the left knee and lateral proximal thigh Patient is tender with palpation directly over the trochanteric bursa on the right side. She demonstrates no pain in the knee, lower leg, foot or ankle. No point tenderness is appreciated throughout the left lower extremity. Straight leg raise bilaterally reproduces no pain. Logroll maneuver reproduces no pain bilaterally. Hip flexion, knee extension, knee flexion, plantar flexion, dorsiflexion, EHL, FHL are intact bilaterally. Hip flexion with internal and external rotation does reproduce pain in the lateral aspect of the right hip. Compartments of the anterior posterior aspects of the bilateral lower extremities are soft and compressible Calf is soft, no tenderness with palpation Sensory exam to light touch is intact throughout the extremity Dorsalis pedis pulses 2+ bilaterally Results - Labs Labs: Abnormal Lab Results - Last 24 Hours (Table) 08/23/23 08/23/23 Range/Units 08:55 08:55 RBC 3.67 L (3.80-5.40) m/uL Sodium 123 L (137-145) mmol/L Chloride 90 L (98-107) mmol/L BUN 25 H (7-17) mg/dL AST 40 H (14-36) U/L H & H 08/23/23 Range/Units 08:55 Hgb 12.3 (11.4-16.0) gm/dL Hct 35.4 (34.0-46.0) % Result Diagrams: 08/23/23 08:55 08/23/23 08:55 - Diagnostic results Hip x-ray: report reviewed, image reviewed (AP pelvis along with dedicated left and right x-rays were reviewed from 08/23/2023. No acute fractures or dislocations present moderate [place] arthritic changes present bilateral, this including joint space narrowing and subchondral sclerosis) Lumbar AP/lateral x-ray with flexion/extension views: report reviewed, image reviewed (Images of the lumbar spine were reviewed from 08/23/2023 along with reports. No acute fractures or dislocations. Multilevel lumbar spondylosis present) Assessment and Plan Assessment: Right hip pain Right hip moderate osteoarthritis Right hip trochanteric bursitis Left hip moderate osteoarthritis Lumbar spondylosis Other medical comorbidities Plan: I was able to discuss the case, assistance with both physical exam findings and imaging studies my attending Dr. Ordoñez. No emergent orthopedic surgical intervention recommended at this time Status post patient's osteoarthritis findings along with trochanter percent his symptoms. I discussed options for treatment, I would like to utilize a steroid injection to the right trochanteric bursa. Risk and benefits of the procedure were discussed and she is in good understanding, we plan to proceed with this on 08/24/2023. We also talked about the option for physical therapy in the future. We briefly discussed total hip arthroplasty Pain control, recommend use of Tylenol, patient cannot take NSAIDs due to her ileostomy Weight-bear as tolerated with walker DVT Prophylaxis per primary medical service Other medical specialty recommendations appreciated Plan for cortisone injection at bedside on 08/24/2023 Time with Patient: Less than 30
[2023-08-23 11:55] LABS: Appearance,Urine Clear (Clear); Bilirubin,Urine Negative (Negative); Blood,Urine Negative (Negative); Color,Urine Light Yellow; Glucose,Urine (UA) Negative (Negative); Ketones,Urine Negative (Negative); Leukocyte Esterase,Urine Negative (Negative); Nitrite,Urine Negative (Negative); Protein,Urine Negative (Negative); Specific Gravity,Urine 1.012 (1.001-1.035); Urobilinogen,Urine <2.0 mg/dL (<2.0)
[2023-08-23] MEDS ORDERED: ONDANSETRON ODT 4 MG TAB PO PRN (13:08)
[2023-08-23] MEDS: ACETAMINOPHEN TAB 500 MG TAB PO PRN (17:49)
[2023-08-23] MEDS: KETOROLAC 15 MG/ML 1 ML VIAL IVP PRN (20:35)
[2023-08-23] MEDS: MAGNESIUM OXIDE 400 MG TAB PO SCH (20:35)
[2023-08-23] MEDS ORDERED: MELATONIN 5 MG TABLET PO PRN (20:45)
[2023-08-24] MEDS: ACETAMINOPHEN TAB 500 MG TAB PO PRN (00:58)
[2023-08-24] MEDS: SODIUM CHLORIDE 0.9% 1,000 ML IV SCH ×2 (05:46→12:48)
[2023-08-24] MEDS: ERGOCALCIFEROL 1,250 MCG (50,000 IU) CAPSULE PO SCH (08:27)
[2023-08-24] MEDS: CYANOCOBALAMIN 500 MCG TAB PO SCH (08:27)
[2023-08-24] MEDS: ASPIRIN 81 MG PO SCH (08:27)
[2023-08-24] MEDS: allopurinoL 100 MG TAB PO SCH (08:27)
[2023-08-24] MEDS: MAGNESIUM OXIDE 400 MG TAB PO SCH ×2 (08:27→20:06)
[2023-08-24] MEDS: MULTIVITAMINS, THERA 1 EACH TAB PO SCH (08:28)
[2023-08-24] MEDS: FAMOTIDINE 20 MG TAB PO SCH (08:28)
[2023-08-24] MEDS: FOLIC ACID 1 MG TAB PO SCH (08:28)
[2023-08-24 11:06] LABS: Basophils # (A) 0.02 X 10*3/uL (0.00-0.10); Basophils % (A) 0.4 %; Eosinophils # (A) 0.16 X 10*3/uL (0.04-0.35); Eosinophils % (A) 3.4 %; HCT 31.6 % (37.2-46.3); HGB 10.6 g/dL (12.0-15.0); Lymphocytes # (A) 2.01 X 10*3/uL (0.90-5.00); Lymphocytes % (A) 43.2 %; MCHC 33.5 g/dL (32.0-37.0); MCV 98.4 FL (80.0-97.0); Mean Platelet Volume 10.4 FL (9.5-12.2); Monocytes # (A) 0.43 X 10*3/uL (0.20-1.00); Monocytes % (A) 9.2 %; NRBC Per 100 WBC 0 X 10*3/uL (0.00-0.01); Neutrophils # (A) 2.02 X 10*3/uL (1.80-7.70); Neutrophils % (A) 43.6 %; Platelet Count 189 X 10*3/uL (140-440); RBC 3.21 X 10*6/uL (4.10-5.20); RDW 12.6 % (11.5-14.5); WBC 4.65 X 10*3/uL (4.50-10.00)
[2023-08-24 11:18] LABS: BUN/Creat Ratio 17.83 Ratio (12.00-20.00); Blood Urea Nitrogen 21.4 mg/dL (9.0-27.0); Calcium 8.6 mg/dL (8.7-10.3); Carbon Dioxide 19.9 mmol/L (21.6-31.8); Chloride 94 mmol/L (96-109); Glucose 93 mg/dL (70-110); Potassium 4.6 mmol/L (3.5-5.5); Sodium 124 mmol/L (135-145)
--- NOTE | 2023-08-24 14:51 | P.PN ---
Subjective Progress Note Date: 08/24/23 Principal diagnosis: Right hip pain, right hip osteoarthritis, right hip trochanteric bursitis Patient was evaluated today at bedside, she is resting in her hospital chair. She continues tab discomfort along the lateral aspect of the hip. We again discussed cortisone injection today, risk and benefits were discussed, patient would like to proceed with this. Please see procedure note for further detail. Objective - Vital Signs Vital signs: Vital Signs Temp 97.4 F L 08/24/23 13:38 Pulse 65 08/24/23 13:38 Resp 17 08/24/23 13:38 BP 106/73 08/24/23 13:38 Pulse Ox 100 08/24/23 13:38 FiO2 Intake & Output 08/23/23 08/24/23 08/24/23 18:59 06:59 18:59 Weight 54.431 kg Other: Voiding Method Toilet # Voids 3 3 1 # Bowel Movements 3 - Exam Gen. orthopedic exam: No obvious open lesions or sores are present throughout bilateral lower extremities. Well-healed incision over the anterior aspect of the left knee and lateral proximal thigh Patient is tender with palpation directly over the trochanteric bursa on the right side. She demonstrates no pain in the knee, lower leg, foot or ankle. No point tenderness is appreciated throughout the left lower extremity. Straight leg raise bilaterally reproduces no pain. Logroll maneuver reproduces no pain bilaterally. Hip flexion, knee extension, knee flexion, plantar flexion, dorsiflexion, EHL, FHL are intact bilaterally. Hip flexion with internal and external rotation does reproduce pain in the lateral aspect of the right hip. Compartments of the anterior posterior aspects of the bilateral lower extremities are soft and compressible Calf is soft, no tenderness with palpation Sensory exam to light touch is intact throughout the extremity Dorsalis pedis pulses 2+ bilaterally - Labs CBC & Chem 7: 08/24/23 06:34 08/24/23 06:34 Labs: Abnormal Lab Results - Last 24 Hours (Table) 08/24/23 08/24/23 Range/Units 06:34 06:34 RBC 3.21 L (4.10-5.20) X 10*6/uL Hgb 10.6 L (12.0-15.0) g/dL Hct 31.6 L (37.2-46.3) % MCV 98.4 H (80.0-97.0) FL MCH 33.0 H (27.0-32.0) pg Sodium 124 L (135-145) mmol/L Chloride 94 L (96-109) mmol/L Carbon Dioxide 19.9 L (21.6-31.8) mmol/L Est GFR (CKD-EPI) 44 L (>=60) Calcium 8.6 L (8.7-10.3) mg/dL Assessment and Plan Assessment: Right hip pain Right hip moderate osteoarthritis Right hip trochanteric bursitis Left hip moderate osteoarthritis Lumbar spondylosis Other medical comorbidities Plan: Consent form was obtained for steroid injection right trochanteric bursa. Please see procedure note for further detail. Pain control, recommend use of Tylenol, patient cannot take NSAIDs due to her ileostomy Weight-bear as tolerated with walker DVT Prophylaxis per primary medical service Other medical specialty recommendations appreciated Recommend follow-up in the outpatient setting via Dr. Ordoñez for recheck of symptoms, would likely consider physical therapy at that time. Please contact our orthopedic service there are any further questions regarding this patient. Time with Patient: Less than 30
--- NOTE | 2023-08-24 14:53 | P.PCN ---
Date of Procedure: 08/24/23 Preoperative Diagnosis: Right hip trochanteric bursitis Postoperative Diagnosis: same Procedure(s) Performed: Cortisone injection right greater trochanteric bursa Surgeon: Migel Purvis Pathology: none sent Condition: stable Disposition: no change Indications for Procedure: Symptomatic right hip trochanteric bursitis Description of Procedure: Risk and benefits were discussed with the patient today at bedside prior to procedure, consent form was obtained. Patient was seen in the lateral position with the right hip exposed, one iodine swabs and 4 alcohol swabs were used to cleanse the skin. A 20-gauge needle was used to inject 1 mL of 1% plain lidocaine and 40 mg of Depo-Medrol into the troc hanteric bursal region. Patient tolerated the procedure well.
[2023-08-24 17:21] LABS: Albumin 3.1 g/dL (3.8-4.9); Calcium 8.8 mg/dL (8.7-10.3); Total Bilirubin 0.4 mg/dL (0.3-1.2); Total Protein 4.9 g/dL (6.2-8.2)
--- NOTE | 2023-08-24 17:36 | P.HPIM ---
History of Present Illness H&P Date: 08/23/23 Aileen Olvera, is an 88-year-old female who presented to [facility] emergency room with a chief complaint of severe pain in the right hip area She was evaluated in the emergency room vital examination on presentation revealed a temperature of 98.7 pulse 67 respiration 16 blood pressure 143/80 pulse ox 100% on room air Laboratory data reveals a white blood count of 4.8 hemoglobin 12.3 platelet count 205 sodium 123 potassium 4.9 chloride 90 CO2 23 BUN 25 creatinine 1.01 Testing in the emergency room revealed Patient was admitted to medical floor for further evaluation and treatment Past medical history is significant for history of hypertension, history of osteoarthritis, history of bowel resection with ileostomy placement On review of systems patient is alert and oriented 3 in no apparent distress there is no fever or chills no headache or dizziness no chest pain no shortness of breath no cough no nausea or vomiting no abdominal pain no diarrhea and no urinary symptoms Past Medical History Past Medical History: Hypertension Additional Past Medical History / Comment(s): illestomy, back pain, infected tooth, ear infection from ear wax, weakness, hard of hearing History of Any Multi-Drug Resistant Organisms: None Reported Past Surgical History: Bowel Resection, Cholecystectomy, Hysterectomy Additional Past Surgical History / Comment(s): illeostomy, left knee replacement, bowel resection Past Anesthesia/Blood Transfusion Reactions: No Reported Reaction Past Psychological History: No Psychological Hx Reported Smoking Status: Never smoker Past Alcohol Use History: None Reported Past Drug Use History: None Reported - Past Family History Mother Family Medical History: Diabetes Mellitus Father Family Medical History: Hypertension Additional Family Medical History / Comment(s): of heart attrack Medications and Allergies Home Medications Medication Instructions Recorded Confirmed Type Ergocalciferol (Vitamin D2) 50,000 unit PO MOWEFR 02/15/19 08/23/23 History [Drisdol (50,000 Iu)] Multivitamins, Thera [Multivitamin 1 tab PO Q48H 02/15/19 08/23/23 History (formulary)] allopurinoL [Zyloprim] 100 mg PO DAILY 02/15/19 08/23/23 History Cyanocobalamin (Vitamin B-12) 1,000 mcg PO DAILY 06/04/21 08/23/23 History [Vitamin B-12] Krill/[place]-3/Dha/Epa/Lipids 1 cap PO TUTH 06/04/21 08/23/23 History [Krill Oil 350 mg Softgel] predniSONE 2 mg PO DAILY 06/04/21 08/23/23 History Acetaminophen Tab [Tylenol] 650 mg PO Q6HR PRN tab 06/07/21 08/23/23 Rx Aspirin EC [Ecotrin Low Dose] 81 mg PO DAILY 08/23/23 08/23/23 History Cholecalciferol [Vitamin D3 (25 50 mcg PO TUTH 08/23/23 08/23/23 History Mcg = 1000 Iu)] Famotidine [Pepcid] 20 mg PO BID 08/23/23 08/23/23 History Folic Acid 1 mg PO DAILY 08/23/23 08/23/23 History Magnesium Glycinate 350 Mg 350 mg PO BID 08/23/23 08/23/23 History Ondansetron Odt [Zofran Odt] 4 mg PO Q8HR PRN 08/23/23 08/23/23 History calcitrioL [Calcitriol] 0.25 mcg PO TUTH 08/23/23 08/23/23 History metHOTREXate sodium 2.5 mg PO TH 08/23/23 08/23/23 History Allergies Allergy/AdvReac Type Severity Reaction Status Date / Time ceftriaxone Allergy Swelling Verified 08/23/23 12:00 ciprofloxacin [From Cipro] Allergy Anaphylaxis Verified 08/23/23 12:00 codeine Allergy Anaphylaxis Verified 08/23/23 12:00 hydrocodone [From Vicodin] Allergy Anaphylaxis Verified 08/23/23 12:00 ibuprofen [From Motrin] Allergy Rash/Hives Verified 08/23/23 12:00 oxycodone [From Percocet] Allergy Anaphylaxis Verified 08/23/23 12:00 Penicillins Allergy Rash/Hives Verified 08/23/23 12:00 prednisone Allergy Anaphylaxis Verified 08/23/23 12:00 propoxyphene Allergy Anaphylaxis Verified 08/23/23 12:00 [From Darvocet-N] ramipril [From Altace] Allergy Anaphylaxis Verified 08/23/23 12:00 Physical Exam Vitals: Vital Signs Temp Pulse Resp BP Pulse Ox 08/23/23 11:58 98.0 F 79 18 123/90 100 08/23/23 07:52 98.7 F 67 16 143/80 100 Intake and Output 08/22/23 08/23/23 08/23/23 22:59 06:59 14:59 Other: Weight 54.431 kg In general patient is alert and oriented x 3 in no distress HEENT head normocephalic and atraumatic Neck is supple no JVD no goiter no lymphadenopathy no carotid bruit Chest examination is clear to auscultation no crackles no wheezing Cardiac exam reveals regular heart sounds S1 and S2 no gallops no murmurs Abdomen is soft nontender no organomegaly with normal bowel sounds Extremity exam reveals no edema no cyanosis or clubbing Neurological examination reveals no gross focal deficits Results CBC & Chem 7: 08/24/23 06:34 08/24/23 06:34 Labs: Abnormal Lab Results - Last 24 Hours (Table) 08/23/23 08/23/23 Range/Units 08:55 08:55 RBC 3.67 L (3.80-5.40) m/uL Sodium 123 L (137-145) mmol/L Chloride 90 L (98-107) mmol/L BUN 25 H (7-17) mg/dL AST 40 H (14-36) U/L Thrombosis Risk Factor Assmnt - Choose All That Apply Any of the Below Risk Factors Present?: No Other Risk Factors: Yes Each Risk Factor Represents 3 Points: Age 75 years or older Thrombosis Risk Factor Assessment Total Risk Factor Score: 3 Thrombosis Risk Factor Assessment Level: Moderate Risk Assessment and Plan Plan: Severe hyponatremia Severe pain in the right hip Underlying history of hypertension Underlying history of bowel resection with ileostomy placement At this time patient was started on IV normal saline, for hyponatremia Pain management with Tylenol due to multiple medications ALLERGIES Orthopedic consultation requested Will monitor labs closely Will follow in a.m.
--- NOTE | 2023-08-24 17:38 | P.PN ---
Subjective Progress Note Date: 08/24/23 Aileen Olvera, is an 88-year-old female who presented to [facility] emergency room with a chief complaint of severe pain in the right hip area She was evaluated in the emergency room vital examination on presentation revealed a temperature of 98.7 pulse 67 respiration 16 blood pressure 143/80 pulse ox 100% on room air Laboratory data reveals a white blood count of 4.8 hemoglobin 12.3 platelet count 205 sodium 123 potassium 4.9 chloride 90 CO2 23 BUN 25 creatinine 1.01 Testing in the emergency room revealed Patient was admitted to medical floor for further evaluation and treatment Past medical history is significant for history of hypertension, history of osteoarthritis, history of bowel resection with ileostomy placement On review of systems patient is alert and oriented 3 in no apparent distress there is no fever or chills no headache or dizziness no chest pain no shortness of breath no cough no nausea or vomiting no abdominal pain no diarrhea and no urinary symptoms On 08/24/2023 patient was seen and examined on the medical floor she is alert and oriented 3 in no apparent distress she is complaining of hip pain and low back pain otherwise she denies any complaints sodium is still low at 124 today she is still maintained on IV normal saline there is no fever or chills no headache or dizziness no chest pain no shortness of breath no cough no nausea or vomiting no abdominal pain no diarrhea and no urinary symptoms Objective - Vital Signs Vital signs: Vital Signs Temp 97.4 F L 08/24/23 13:38 Pulse 65 08/24/23 13:38 Resp 17 08/24/23 13:38 BP 106/73 08/24/23 13:38 Pulse Ox 100 08/24/23 13:38 FiO2 Intake & Output 08/23/23 08/24/23 08/24/23 18:59 06:59 18:59 Weight 54.431 kg Other: Voiding Method Toilet # Voids 3 3 1 # Bowel Movements 3 - Exam In general patient is alert and oriented x 3 in no distress HEENT head normocephalic and atraumatic Neck is supple no JVD no goiter no lymphadenopathy no carotid bruit Chest examination is clear to auscultation no crackles no wheezing Cardiac exam reveals regular heart sounds S1 and S2 no gallops no murmurs Abdomen is soft nontender no organomegaly with normal bowel sounds Extremity exam reveals no edema no cyanosis or clubbing Neurological examination reveals no gross focal deficits - Labs CBC & Chem 7: 08/24/23 06:34 08/24/23 06:34 Labs: Abnormal Lab Results - Last 24 Hours (Table) 08/24/23 08/24/23 08/24/23 Range/Units 06:34 06:34 06:34 RBC 3.21 L (4.10-5.20) X 10*6/uL Hgb 10.6 L (12.0-15.0) g/dL Hct 31.6 L (37.2-46.3) % MCV 98.4 H (80.0-97.0) FL MCH 33.0 H (27.0-32.0) pg Sodium 124 L (135-145) mmol/L Chloride 94 L (96-109) mmol/L Carbon Dioxide 19.9 L (21.6-31.8) mmol/L Est GFR (CKD-EPI) 44 L (>=60) Calcium 8.6 L (8.7-10.3) mg/dL Alkaline Phosphatase 37 L (41-126) U/L Total Protein 4.9 L (6.2-8.2) g/dL Albumin 3.1 L (3.8-4.9) g/dL Assessment and Plan Plan: Severe hyponatremia Severe pain in the right hip Underlying history of hypertension Underlying history of bowel resection with ileostomy placement At this time patient was started on IV normal saline, for hyponatremia Pain management with Tylenol due to multiple medications ALLERGIES Orthopedic consultation requested Will monitor labs closely Will follow in a.m.
[2023-08-24] MEDS: ENOXAPARIN 30 MG/0.3 ML SYRINGE SQ SCH (18:07)
[2023-08-25] MEDS: KETOROLAC 15 MG/ML 1 ML VIAL IVP PRN (01:52)
[2023-08-25] MEDS: SODIUM CHLORIDE 0.9% 1,000 ML IV SCH ×2 (03:05→13:09)
[2023-08-25] MEDS: ACETAMINOPHEN TAB 500 MG TAB PO PRN (07:34)
[2023-08-25] MEDS: ASPIRIN 81 MG PO SCH (07:34)
[2023-08-25] MEDS: FAMOTIDINE 20 MG TAB PO SCH (07:34)
[2023-08-25] MEDS: FOLIC ACID 1 MG TAB PO SCH (07:35)
[2023-08-25] MEDS: MAGNESIUM OXIDE 400 MG TAB PO SCH ×2 (07:35→20:11)
[2023-08-25] MEDS: CYANOCOBALAMIN 500 MCG TAB PO SCH (07:35)
[2023-08-25] MEDS: ENOXAPARIN 30 MG/0.3 ML SYRINGE SQ SCH (07:36)
[2023-08-25] MEDS: allopurinoL 100 MG TAB PO SCH (07:36)
[2023-08-25] MEDS ORDERED: CHOLECALCIFEROL 25 MCG (1000 IU) TABLET PO SCH (09:00)
[2023-08-25] MEDS ORDERED: LIPIDS PO SCH (09:00)
[2023-08-25] MEDS ORDERED: [UNRECOGNIZED DRUG - OTHER] PO SCH (09:00)
[2023-08-25] MEDS ORDERED: OMEGA PO SCH (09:00)
[2023-08-25] MEDS ORDERED: DHA PO SCH (09:00)
[2023-08-25] MEDS ORDERED: KRILL PO SCH (09:00)
[2023-08-25] MEDS ORDERED: EPA PO SCH (09:00)
--- NOTE | 2023-08-25 09:45 | P.PN ---
Subjective Progress Note Date: 08/25/23 Aileen Olvera, is an 88-year-old female who presented to [facility] emergency room with a chief complaint of severe pain in the right hip area She was evaluated in the emergency room vital examination on presentation revealed a temperature of 98.7 pulse 67 respiration 16 blood pressure 143/80 pulse ox 100% on room air Laboratory data reveals a white blood count of 4.8 hemoglobin 12.3 platelet count 205 sodium 123 potassium 4.9 chloride 90 CO2 23 BUN 25 creatinine 1.01 Testing in the emergency room revealed Patient was admitted to medical floor for further evaluation and treatment Past medical history is significant for history of hypertension, history of osteoarthritis, history of bowel resection with ileostomy placement On review of systems patient is alert and oriented 3 in no apparent distress there is no fever or chills no headache or dizziness no chest pain no shortness of breath no cough no nausea or vomiting no abdominal pain no diarrhea and no urinary symptoms On 08/24/2023 patient was seen and examined on the medical floor she is alert and oriented 3 in no apparent distress she is complaining of hip pain and low back pain otherwise she denies any complaints sodium is still low at 124 today she is still maintained on IV normal saline there is no fever or chills no headache or dizziness no chest pain no shortness of breath no cough no nausea or vomiting no abdominal pain no diarrhea and no urinary symptoms On 08/25/2023 patient oriented 3. Patient received cortisone shot yesterday per orthopedic services. Patient reports some improvement but developed pain this morning that was relieved with pain medication. Lab work currently pending. Patient remains on normal saline at 75. Patient denies chest pain or shortness of breath. Patient denies nausea vomiting or diarrhea. Patient denies any urinary burning or frequency Objective - Vital Signs Vital signs: Vital Signs Temp 98.1 F 08/25/23 07:52 Pulse 74 08/25/23 07:52 Resp 18 08/25/23 07:52 BP 189/78 08/25/23 07:52 Pulse Ox 98 08/25/23 07:52 FiO2 Intake & Output 08/24/23 08/25/23 08/25/23 18:59 06:59 18:59 Other: # Voids 1 3 1 - Exam In general patient is alert and oriented x 3 in no distress HEENT head normocephalic and atraumatic Neck is supple no JVD no goiter no lymphadenopathy no carotid bruit Chest examination is clear to auscultation no crackles no wheezing Cardiac exam reveals regular heart sounds S1 and S2 no gallops no murmurs Abdomen is soft nontender no organomegaly with normal bowel sounds Extremity exam reveals no edema no cyanosis or clubbing Neurological examination reveals no gross focal deficits - Labs CBC & Chem 7: 08/24/23 06:34 08/24/23 06:34 Labs: Abnormal Lab Results - Last 24 Hours (Table) 08/24/23 08/24/23 08/24/23 Range/Units 06:34 06:34 06:34 RBC 3.21 L (4.10-5.20) X 10*6/uL Hgb 10.6 L (12.0-15.0) g/dL Hct 31.6 L (37.2-46.3) % MCV 98.4 H (80.0-97.0) FL MCH 33.0 H (27.0-32.0) pg Sodium 124 L (135-145) mmol/L Chloride 94 L (96-109) mmol/L Carbon Dioxide 19.9 L (21.6-31.8) mmol/L Est GFR (CKD-EPI) 44 L (>=60) Calcium 8.6 L (8.7-10.3) mg/dL Alkaline Phosphatase 37 L (41-126) U/L Total Protein 4.9 L (6.2-8.2) g/dL Albumin 3.1 L (3.8-4.9) g/dL Assessment and Plan Assessment: Severe hyponatremia Severe pain in the right hip Underlying history of hypertension Underlying history of bowel resection with ileostomy placement At this time patient was started on IV normal saline, for hyponatremia Pain management with Tylenol due to multiple medications ALLERGIES Status post cortisone injection for orthopedic services Will monitor labs closely Will follow in a.m.
--- NOTE | 2023-08-25 12:03 | P.PN ---
Subjective Progress Note Date: 08/25/23 Principal diagnosis: Right hip pain, right hip osteoarthritis, right hip trochanteric bursitis Patient was evaluated today at bedside, she is resting in her hospital chair. Patient has noticed improvement in the discomfort since having the injection. She does have some generalized discomfort in that extremity pain medication seems to be helping with. Objective - Vital Signs Vital signs: Vital Signs Temp 98.1 F 08/25/23 07:52 Pulse 74 08/25/23 07:52 Resp 18 08/25/23 07:52 BP 189/78 08/25/23 07:52 Pulse Ox 98 08/25/23 07:52 FiO2 Intake & Output 08/24/23 08/25/23 08/25/23 18:59 06:59 18:59 Other: # Voids 1 3 1 - Exam Gen. orthopedic exam: No obvious open lesions or sores are present throughout bilateral lower extremities. Well-healed incision over the anterior aspect of the left knee and lateral proximal thigh Patient is tender with palpation directly over the trochanteric bursa on the rig ht side. She demonstrates no pain in the knee, lower leg, foot or ankle. No point tenderness is appreciated throughout the left lower extremity. Straight leg raise bilaterally reproduces no pain. Logroll maneuver reproduces no pain bilaterally. Hip flexion, knee extension, knee flexion, plantar flexion, dorsiflexion, EHL, FHL are intact bilaterally. Hip flexion with internal and external rotation does reproduce pain in the lateral aspect of the right hip. Compartments of the anterior posterior aspects of the bilateral lower extremities are soft and compressible Calf is soft, no tenderness with palpation Sensory exam to light touch is intact throughout the extremity Dorsalis pedis pulses 2+ bilaterally - Labs CBC & Chem 7: 08/24/23 06:34 08/24/23 06:34 Labs: Abnormal Lab Results - Last 24 Hours (Table) 08/24/23 Range/Units 06:34 Alkaline Phosphatase 37 L (41-126) U/L Total Protein 4.9 L (6.2-8.2) g/dL Albumin 3.1 L (3.8-4.9) g/dL Assessment and Plan Assessment: Right hip pain Right hip moderate osteoarthritis Right hip trochanteric bursitis Left hip moderate osteoarthritis Lumbar spondylosis Other medical comorbidities Plan: Pain control, recommend use of Tylenol, patient cannot take NSAIDs due to her ileostomy Weight-bear as tolerated with walker DVT Prophylaxis per primary medical service Other medical specialty recommendations appreciated Recommend follow-up in the outpatient setting via Dr. Ordoñez for recheck of symptoms, would likely consider physical therapy at that time. Please contact our orthopedic service there are any further questions regarding this patient. Time with Patient: Less than 30
[2023-08-25 13:33] LABS: Basophils # (A) 0.03 X 10*3/uL (0.00-0.10); Basophils % (A) 0.7 %; Eosinophils # (A) 0.09 X 10*3/uL (0.04-0.35); HCT 30.4 % (37.2-46.3); HGB 10.4 g/dL (12.0-15.0); Lymphocytes # (A) 1.28 X 10*3/uL (0.90-5.00); Lymphocytes % (A) 28.6 %; MCH 33.2 pg (27.0-32.0); MCHC 34.2 g/dL (32.0-37.0); MCV 97.1 FL (80.0-97.0); Mean Platelet Volume 10.3 FL (9.5-12.2); Monocytes # (A) 0.32 X 10*3/uL (0.20-1.00); Monocytes % (A) 7.2 %; NRBC Per 100 WBC 0 X 10*3/uL (0.00-0.01); Neutrophils # (A) 2.74 X 10*3/uL (1.80-7.70); Neutrophils % (A) 61.3 %; Platelet Count 208 X 10*3/uL (140-440); RBC 3.13 X 10*6/uL (4.10-5.20); RDW 12.7 % (11.5-14.5); WBC 4.47 X 10*3/uL (4.50-10.00)
[2023-08-25 13:50] LABS: ALT 22 U/L (8-44); AST 22 U/L (13-35); Albumin 3.2 g/dL (3.8-4.9); Albumin/Globulin Ratio 1.88 Ratio (1.60-3.17); Alkaline Phosphatase 37 U/L (41-126); BUN/Creat Ratio 15.36 Ratio (12.00-20.00); Blood Urea Nitrogen 16.9 mg/dL (9.0-27.0); Calcium 8.9 mg/dL (8.7-10.3); Carbon Dioxide 21.2 mmol/L (21.6-31.8); Chloride 98 mmol/L (96-109); Globulin 1.7 g/dL (1.6-3.3); Glucose 94 mg/dL (70-110); Potassium 5.1 mmol/L (3.5-5.5); Sodium 127 mmol/L (135-145); Total Bilirubin 0.6 mg/dL (0.3-1.2); Total Protein 4.9 g/dL (6.2-8.2)
[2023-08-26] MEDS: SODIUM CHLORIDE 0.9% 1,000 ML IV SCH (03:06)
[2023-08-26] MEDS: KETOROLAC 15 MG/ML 1 ML VIAL IVP PRN (05:25)
[2023-08-26 07:30] VITALS: BP 134/75; PULSE 84; RESP 18; TEMP 98.1
[2023-08-26] MEDS: MULTIVITAMINS, THERA 1 EACH TAB PO SCH (07:43)
[2023-08-26] MEDS: CYANOCOBALAMIN 500 MCG TAB PO SCH (07:43)
[2023-08-26] MEDS: ASPIRIN 81 MG PO SCH (07:43)
[2023-08-26] MEDS: MAGNESIUM OXIDE 400 MG TAB PO SCH (07:43)
[2023-08-26] MEDS: FOLIC ACID 1 MG TAB PO SCH (07:43)
[2023-08-26] MEDS: FAMOTIDINE 20 MG TAB PO SCH (07:43)
[2023-08-26] MEDS: ENOXAPARIN 30 MG/0.3 ML SYRINGE SQ SCH (07:43)
[2023-08-26] MEDS: allopurinoL 100 MG TAB PO SCH (07:43)
[2023-08-26] MEDS: ERGOCALCIFEROL 1,250 MCG (50,000 IU) CAPSULE PO SCH (07:43)
[2023-08-26 08:55] LABS: ALT 23 U/L (8-44); AST 22 U/L (13-35); Albumin 3.4 g/dL (3.8-4.9); Alkaline Phosphatase 36 U/L (41-126); BUN/Creat Ratio 16.82 Ratio (12.00-20.00); Blood Urea Nitrogen 18.5 mg/dL (9.0-27.0); Carbon Dioxide 19.6 mmol/L (21.6-31.8); Chloride 104 mmol/L (96-109); Globulin 1.7 g/dL (1.6-3.3); Glucose 88 mg/dL (70-110); Magnesium 1.7 mg/dL (1.5-2.4); Potassium 4.5 mmol/L (3.5-5.5); Sodium 133 mmol/L (135-145); Total Bilirubin 0.4 mg/dL (0.3-1.2); Total Protein 5.1 g/dL (6.2-8.2)
--- NOTE | 2023-08-26 09:30 | P.DS ---
Providers Date of admission: 08/23/23 10:57 Expected date of discharge: 08/26/23 Attending physician: Vandana Stearns Consults: 08/23/23 10:55 Consult Physician Routine Consulting Provider: Harrison Ordoñez Consult Reason/Comments: Right hip pain Do you want consulting provider notified?: Yes Primary care physician: Bharati Molina [facility] Course: Discharge Diagnosis Severe hyponatremia Severe pain in the right hip Underlying history of hypertension Underlying history of bowel resection with ileostomy placement Hospital Course Aileen Olvera, is an 88-year-old female who presented to [facility] emergency room with a chief complaint of severe pain in the right hip area She was evaluated in the emergency room vital examination on presentation revealed a temperature of 98.7 pulse 67 respiration 16 blood pressure 143/80 pulse ox 100% on room air Laboratory data reveals a white blood count of 4.8 hemoglobin 12.3 platelet count 205 sodium 123 potassium 4.9 chloride 90 CO2 23 BUN 25 creatinine 1.01 Testing in the emergency room revealed Patient was admitted to medical floor for further evaluation and treatment Past medical history is significant for history of hypertension, history of osteoarthritis, history of bowel resection with ileostomy placement On review of systems patient is alert and oriented 3 in no apparent distress there is no fever or chills no headache or dizziness no chest pain no shortness of breath no cough no nausea or vomiting no abdominal pain no diarrhea and no urinary symptoms On 08/24/2023 patient was seen and examined on the medical floor she is alert and oriented 3 in no apparent distress she is complaining of hip pain and low back pain otherwise she denies any complaints sodium is still low at 124 today she is still maintained on IV normal saline there is no fever or chills no headache or dizziness no chest pain no shortness of breath no cough no nausea or vomiting no abdominal pain no diarrhea and no urinary symptoms On 08/25/2023 patient oriented 3. Patient received cortisone shot yesterday per orthopedic services. Patient reports some improvement but developed pain this morning that was relieved with pain medication. Lab work currently pending. Patient remains on normal saline at 75. Patient denies chest pain or shortness of breath. Patient denies nausea vomiting or diarrhea. Patient denies any urinary burning or frequency On 08/26/2023 patient is alert and oriented 3. Patient reports improvement with pain. Per orthopedic service is patient to follow-up outpatient in 3 weeks. Sodium improving to 133 patient to increase salt intake. Patient denies chest pain or shortness of breath. Patient denies nausea vomiting or diarrhea. Patient denies any urinary burning or frequency Patient Condition at Discharge: Stable Plan - Discharge Summary Discharge Rx Participant: No New Discharge Prescriptions: Continue Ergocalciferol (Vitamin D2) [Drisdol (50,000 Iu)] 50,000 unit PO MOWEFR Multivitamins, Thera [Multivitamin (formulary)] 1 tab PO Q48H allopurinoL [Zyloprim] 100 mg PO DAILY Krill/[place]-3/Dha/Epa/Lipids [Krill Oil 350 mg Softgel] 1 cap PO TUTH Cyanocobalamin (Vitamin B-12) [Vitamin B-12] 1,000 mcg PO DAILY predniSONE 2 mg PO DAILY metHOTREXate sodium [Methotrexate] 2.5 mg PO TH Ondansetron Odt [Zofran ODT] 4 mg PO Q8HR PRN PRN Reason: Nausea Cholecalciferol [Vitamin D3 (25 Mcg = 1000 Iu)] 50 mcg PO TUTH Magnesium Glycinate 350 Mg 350 mg PO BID Folic Acid 1 mg PO DAILY Acetaminophen Tab [Tylenol] 650 mg PO Q6HR PRN tab PRN Reason: Fever And/ Or Pain Famotidine [Pepcid] 20 mg PO BID Aspirin EC [Ecotrin Low Dose] 81 mg PO DAILY calcitrioL [Calcitriol] 0.25 mcg PO TUTH Discharge Medication List Ergocalciferol (Vitamin D2) [Drisdol (50,000 Iu)] 50,000 unit PO MOWEFR 02/15/19 [History] Multivitamins, Thera [Multivitamin (formulary)] 1 tab PO Q48H 02/15/19 [History] allopurinoL [Zyloprim] 100 mg PO DAILY 02/15/19 [History] Cyanocobalamin (Vitamin B-12) [Vitamin B-12] 1,000 mcg PO DAILY 06/04/21 [History] Krill/[place]-3/Dha/Epa/Lipids [Krill Oil 350 mg Softgel] 1 cap PO TUTH 06/04/21 [History] predniSONE 2 mg PO DAILY 06/04/21 [History] Acetaminophen Tab [Tylenol] 650 mg PO Q6HR PRN tab 06/07/21 [Rx] Aspirin EC [Ecotrin Low Dose] 81 mg PO DAILY 08/23/23 [History] Cholecalciferol [Vitamin D3 (25 Mcg = 1000 Iu)] 50 mcg PO TUTH 08/23/23 [History] Famotidine [Pepcid] 20 mg PO BID 08/23/23 [History] Folic Acid 1 mg PO DAILY 08/23/23 [History] Magnesium Glycinate 350 Mg 350 mg PO BID 08/23/23 [History] Ondansetron Odt [Zofran ODT] 4 mg PO Q8HR PRN 08/23/23 [History] calcitrioL [Calcitriol] 0.25 mcg PO TUTH 08/23/23 [History] metHOTREXate sodium [Methotrexate] 2.5 mg PO TH 08/23/23 [History] Follow up Appointment(s)/Referral(s): Bharati Molina MD [Primary Care Provider] - 1-2 days Harrison Ordoñez MD [STAFF PHYSICIAN] - 3 Weeks Activity/Diet/Wound Care/Special Instructions: activity as tolerated diet heart healthy
[2023-08-26 11:17] LABS: Basophils % (A) 0 %; Eosinophils # (A) 0.1 k/uL (0-0.7); Eosinophils % (A) 3 %; HCT 30.6 % (34.0-46.0); HGB 10.4 gm/dL (11.4-16.0); Lymphocytes # (A) 1.2 k/uL (1.0-4.8); Lymphocytes % (A) 31 %; MCH 34.5 pg (25.0-35.0); MCHC 33.9 g/dL (31.0-37.0); Macrocytosis Slight; Mean Platelet Volume 7.9; Monocytes # (A) 0.2 k/uL (0-1.0); Monocytes % (A) 5 %; Neutrophils # (A) 2.4 k/uL (1.3-7.7); Neutrophils % (A) 61 %; Platelet Count 187 k/uL (150-450); RBC 3.02 m/uL (3.80-5.40); WBC 3.9 k/uL (3.8-10.6)
[2023-08-26 11:21] LABS: MCV 101.6 fL (80.0-100.0)
[2023-08-27] MEDS ORDERED: metHOTREXate sodium 2.5 MG TAB PO SCH (09:00)
== END 2023-08-26 13:39 | disposition home or self-care (01) ==
LOC: EC 07:51 → INTOOBSV 10:57 → 4SSUR 10:57 → UNDODISIN 08-26 13:39
PROVIDERS: ADMIT Internal Medicine; ATTEND Internal Medicine
DX: M70.61 Trochanteric bursitis, right hip (principal); E87.1 Hypo-osmolality and hyponatremia; I10 Essential (primary) hypertension; M19.90 Unspecified osteoarthritis, unspecified site; H91.90 Unspecified hearing loss, unspecified ear; M16.11 Unilateral primary osteoarthritis, right hip; M21.371 Foot drop, right foot; M47.816 Spondylosis without myelopathy or radiculopathy, lumbar region; Z87.81 Personal history of (healed) traumatic fracture; Z96.652 Presence of left artificial knee joint; Z93.2 Ileostomy status; Z79.899 Other long term (current) drug therapy; Z88.0 Allergy status to penicillin; Z88.5 Allergy status to narcotic agent; Z88.8 Allergy status to other drugs, medicaments and biological substances; Z88.6 Allergy status to analgesic agent; Z88.1 Allergy status to other antibiotic agents; Z90.49 Acquired absence of other specified parts of digestive tract; Z90.710 Acquired absence of both cervix and uterus; Z83.3 Family history of diabetes mellitus; Z82.49 Family history of ischemic heart disease and other diseases of the circulatory system
CPT/HCPCS: 96376 ×3; 96361 ×5; 96372 ×3; 96374; 96375; 99284; 36415; 80053 ×3; 80048; 82040; 82247; 82310; 83735; 84075; 84155; 84450; 84460; 85025 ×4; 81003; 72100; 73521; 20610; G0378 ×4; J2405; J1650 ×3; J1885 ×3; 99285

== ENCOUNTER 2023-09-23 10:16 | Emergency (ER) | payer MEDICARE ==
[2023-09-23 10:46] VITALS: RESP 18
[2023-09-23] MEDS ORDERED: SODIUM CHLORIDE 0.9% 500 ML 500 ML IV ONE (11:04)
[2023-09-23] MEDS ORDERED: FAMOTIDINE 20 MG/2 ML VIAL IV STA (11:06)
[2023-09-23] MEDS ORDERED: ONDANSETRON 4 MG/2 ML VIAL IVP STA (11:06)
[2023-09-23] MEDS ORDERED: KETOROLAC 15 MG/ML 1 ML VIAL IVP STA (11:06)
[2023-09-23 11:30] LABS: Basophils % (A) 0 %; Eosinophils # (A) 0.1 k/uL (0-0.7); Eosinophils % (A) 2 %; HCT 41.5 % (34.0-46.0); Lymphocytes # (A) 1.7 k/uL (1.0-4.8); Lymphocytes % (A) 21 %; MCH 33.8 pg (25.0-35.0); MCHC 33.9 g/dL (31.0-37.0); MCV 99.8 fL (80.0-100.0); Mean Platelet Volume 8.5; Monocytes # (A) 0.5 k/uL (0-1.0); Monocytes % (A) 6 %; Neutrophils # (A) 5.5 k/uL (1.3-7.7); Neutrophils % (A) 69 %; Platelet Count 188 k/uL (150-450); RBC 4.16 m/uL (3.80-5.40); RDW 12.8 % (11.5-15.5); WBC 7.9 k/uL (3.8-10.6)
[2023-09-23 12:52] LABS: ALT 44 U/L (4-34); AST 40 U/L (14-36); African American GFR (CKD) 34 (>60 ml/min/1.73 sqM); Albumin 3.2 g/dL (3.5-5.0); Alkaline Phosphatase 48 U/L (38-126); Anion Gap 10 mmol/L; Blood Urea Nitrogen 44 mg/dL (7-17); Calcium 8.3 mg/dL (8.4-10.2); Carbon Dioxide 19 mmol/L (22-30); Chloride 103 mmol/L (98-107); Glucose 88 mg/dL (74-99); Non-African American GFR(CKD) 30 (>60 ml/min/1.73 sqM); Potassium 5.8 mmol/L (3.5-5.1); Sodium 132 mmol/L (137-145); Total Bilirubin 0.6 mg/dL (0.2-1.3); Total Protein 5.8 g/dL (6.3-8.2)
--- NOTE | 2023-09-23 12:57 | CT ---
EXAMINATION TYPE: CT abdomen pelvis wo con DATE OF EXAM: 09/23/2023 COMPARISON: None HISTORY: 88-year-old female abdominal pain, Ileostomy malfunction... patient had bowel movement this morning CT DLP: 372.7 mGycm. Automated exposure control for dose reduction was used. TECHNIQUE: Contiguous axial scanning of the abdomen and pelvis without IV contrast. Coronal and sagit shlomo reconstructions performed. FINDINGS: The heart is normal size without pericardial effusion. Dense mitral annular calcifications are presen t. Extensive coronary artery calcifications. Mild aortic valvular calcifications. Strandy atelectasis or scarring in the lower lungs. No pleural effusion. Noncontrast appearance of the liver, adrenal glands, kidneys, spleen, and atrophic pancreas show no g ross abnormal. Villatoro's pouch is noted. Retained contrast material within the rectum. Patient status post pancolect regan with right lower quadrant ileostomy. There are staple lines related to small bowel surgery within the right side of the pelvis with patulous small bowel distended up to 4.4 cm with air-fluid level h ere. The dilatation is most likely due to postsurgical change. Other small bowel loops do not appear dilated. Follow-up may be needed. Moderate atherosclerotic calcifications abdominal aorta without aneurysm. Possible old wound along the anterior mid abdomen given contour defect of the abdominal wall. No free air or free fluid. Bladder is nondistended. Mild circumferential wall thickening. Numerous pelvic phleboliths. Bones: Moderate degenerative change left hip and [id number] at the right hip. Osteopenia. Baast rup's disease. Degenerative grade 1 anterolisthesis L3-L4 and L4-L5. Moderate multilevel spondylotic change. Additional ligamentum flavum thickening is present. Changes may contribute to severe focal sp inal canal stenosis at L3-L4 along with moderate to severe left and moderate right neuroforaminal silvia nosis. Moderate bilateral neural foraminal stenosis also at L4-L5 on both sides and on the right at L 2-L3. IMPRESSION: 1. Previous pancolectomy with Villatoro's pouch. Some retained contrast material is present within the rectum. 2. Right lower quadrant ileostomy. Additional small bowel surgery in the right side of the pelvis wi th patulous small bowel at the site of surgery distended up to 4.4 cm. Possibly postsurgical change. Other small bowel is not dilated. If concern for early small bowel obstruction, follow-up may be need ed. 3. Moderate spondylotic changes throughout the lumbar spine. There appears to be a severe spinal can al stenosis at L3-L4.
--- NOTE | 2023-09-23 13:41 | ED ---
General Adult HPI - General Chief complaint: Abdominal Pain Stated complaint: iliostomy malfunction Time Seen by Provider: 09/23/23 10:34 Source: patient, RN notes reviewed Mode of arrival: ambulatory Limitations: no limitations - History of Present Illness Initial comments: 88-year-old female presents to the emergency department with a chief c omplaint of abdominal pain. Patient also reports having a small bowel of stool passed through her rectum. She notes that she has had an ileostomy bag she has had for approximately 18 years. She is also complaining of generalized abdominal pain with some associated nausea. She is also complaining of a generalized cough that is nonproductive. Denies any known fevers. She does report recent sick contact at home. Denies any known fevers, hematemesis, melena or hematochezia, urinary complaints. - Related Data Home Medications Medication Instructions Recorded Confirmed Ergocalciferol (Vitamin D2) 50,000 unit PO MOWEFR 02/15/19 08/23/23 [Drisdol (50,000 Iu)] Multivitamins, Thera [Multivitamin 1 tab PO Q48H 02/15/19 08/23/23 (formulary)] allopurinoL [Zyloprim] 100 mg PO DAILY 02/15/19 08/23/23 Cyanocobalamin (Vitamin B-12) 1,000 mcg PO DAILY 06/04/21 08/23/23 [Vitamin B-12] Krill/[place]-3/Dha/Epa/Lipids 1 cap PO TUTH 06/04/21 08/23/23 [Krill Oil 350 mg Softgel] predniSONE 2 mg PO DAILY 06/04/21 08/23/23 Aspirin EC [Ecotrin Low Dose] 81 mg PO DAILY 08/23/23 08/23/23 Cholecalciferol [Vitamin D3 (25 50 mcg PO TUTH 08/23/23 08/23/23 Mcg = 1000 Iu)] Famotidine [Pepcid] 20 mg PO BID 08/23/23 08/23/23 Folic Acid 1 mg PO DAILY 08/23/23 08/23/23 Magnesium Glycinate 350 Mg 350 mg PO BID 08/23/23 08/23/23 Ondansetron Odt [Zofran ODT] 4 mg PO Q8HR PRN 08/23/23 08/23/23 calcitrioL [Calcitriol] 0.25 mcg PO TUTH 08/23/23 08/23/23 metHOTREXate sodium [Methotrexate] 2.5 mg PO TH 08/23/23 08/23/23 Previous Rx's Medication Instructions Recorded Acetaminophen Tab [Tylenol] 650 mg PO Q6HR PRN tab 06/07/21 Allergies Allergy/AdvReac Type Severity Reaction Status Date / Time ceftriaxone Allergy Swelling Verified 09/23/23 10:26 ciprofloxacin [From Cipro] Allergy Anaphylaxis Verified 09/23/23 10:26 codeine Allergy Anaphylaxis Verified 09/23/23 10:26 hydrocodone [From Vicodin] Allergy Anaphylaxis Verified 09/23/23 10:26 ibuprofen [From Motrin] Allergy Rash/Hives Verified 09/23/23 10:26 oxycodone [From Percocet] Allergy Anaphylaxis Verified 09/23/23 10:26 Penicillins Allergy Rash/Hives Verified 09/23/23 10:26 prednisone Allergy Anaphylaxis Verified 09/23/23 10:26 propoxyphene Allergy Anaphylaxis Verified 09/23/23 10:26 [From Darvocet-N] ramipril [From Altace] Allergy Anaphylaxis Verified 09/23/23 10:26 Review of Systems ROS Statement: Those systems with pertinent positive or pertinent negative responses have been documented in the HPI. ROS Other: All systems not noted in ROS Statement are negative. Past Medical History Past Medical History: Hypertension Additional Past Medical History / Comment(s): illestomy, back pain, infected tooth, ear infection from ear wax, weakness, hard of hearing History of Any Multi-Drug Resistant Organisms: None Reported Past Surgical History: Bowel Resection, Cholecystectomy, Hysterectomy Additional Past Surgical History / Comment(s): illeostomy, left knee replacement, bowel resection Past Anesthesia/Blood Transfusion Reactions: No Reported Reaction Past Psychological History: No Psychological Hx Reported Smoking Status: Never smoker Past Alcohol Use History: None Reported Past Drug Use History: None Reported - Past Family History Mother Family Medical History: Diabetes Mellitus Father Family Medical History: Hypertension Additional Family Medical History / Comment(s): of heart attrack General Exam - General Exam Comments Initial Comments: General: Alert, in no acute distress Head: atraumatic normocephalic. Eyes PERRL, EOMI intact, mucous membranes moist Respiratory: Lungs clear to auscultation bilaterally Cardiovascular: Heart rate regular rhythm Abdominal: Soft without guarding or rebound, RSV back to right side of lower abdomen with gas and loose stool Extremities: Normal inspection with full range of motion and normal capillary refill Neuroogic: alert and oriented 3, CN II-XII intact, able to ambulate with steady gait Skin: warm dry and intact with normal color Limitations: no limitations Course Vital Signs 09/23/23 09/23/23 10:21 14:26 Temperature 98.7 F 97.9 F Pulse Rate 87 90 Respiratory 18 18 Rate Blood Pressure 145/74 141/72 O2 Sat by Pulse 100 99 Oximetry - Reevaluation(s) Reevaluation #1: 09/23/23 13:38 Pt reevaluated. Patient updated on results. Reports symptomatic improvement. Agreeable with the plan for discharge home. Medical Decision Making - Medical Decision Making Was pt. sent in by a medical professional or institution (, PA, TREATING ENGINEER, urgent care, hospital, or long-term...) When possible be specific @ -[No] Did you speak to anyone other than the patient for history (EMS, parent, family, police, friend...)? What history was obtained from this source @ Daughter. Did you review nursing and triage notes (agree or disagree)? Why? @ -[I reviewed and agree with nursing and triage notes] Were old charts reviewed (outside hosp., previous admission, EMS record, old EKG, old radiological studies, urgent care reports/EKG's, long-term records)? Report findings @ -[No old charts were reviewed] Differential Diagnosis (chest pain, altered mental status, abdominal pain women, abdominal pain men, vaginal bleeding, weakness, fever, dyspnea, syncope, headache, dizziness, GI bleed, back pain, seizure, CVA, palpatations, mental health, musculoskeletal)? @ -[not applicable] EKG interpreted by me (3pts min.). @ -[As above] X-rays interpreted by me (1pt min.). @ -[None done] CT interpreted by me (1pt min.). @ -Yes, Below U/S interpreted by me (1pt. min.). @ -[None done] What testing was considered but not performed or refused? (CT, X-rays, U/S, labs)? Why? @ -[None] What meds were considered but not given or refused? Why? @ -[None] Did you discuss the management of the patient with other professionals (professionals i.e. DrNancy, PA, TREATING ENGINEER, lab, RT, psych nurse, 7th grade social studies teacher, cuprous chloride operator, teacher, radio division officer, case supervisor)? Give summary @ -[No] Was smoking cessation discussed for >3mins.? @ -[No] Was critical care preformed (if so, how long)? @ -[No] Were there social determinants of health that impacted care today? How? (Homelessness, low income, unemployed, alcoholism, drug addiction, transportation, low edu. Level, literacy, decrease access to med. care, long term, rehab)? @ -[No] Was there de-escalation of care discussed even if they declined (Discuss DNR or withdrawal of care, Hospice)? DNR status @ -[No] What co-morbidities impacted this encounter? (DM, HTN, Smoking, COPD, CAD, Cancer, CVA, ARF, Chemo, Hep., AIDS, mental health diagnosis, sleep apnea, morbid obesity)? @ -[None] Was patient admitted / discharged? Hospital course, mention meds given and route, prescriptions, significant lab abnormalities, going to OR and other pertinent info. @ -Discharged. This is a pleasant 88-year-old female who presents the emergency department with abdominal pain. Patient had a thorough history and physical exam performed. Patient's vital signs are stable. Patient afebrile. She is well-appearing. She patient's ostomy bag with Gas and small amount of stool collection bag. Patient had laboratory studies which revealed WBC 7.9, hemoglobin 14.0 sodium 13 2, potassium 5.8 BUN 44, creatinine 1.56 patient is Covid positive. I interpreted the following: CT reveals previous pancolectomy with Villatoro's pouch and right lower quadrant ileostomy. Other small bowel was not dilated. I discussed the results in detail with the patient verbalized understanding all questions were addressed. She is agreeable with the plan for discharge home. She was provided Toradol, Zofran, 1 L IV fluids with symptomatic improvement. She be discharged home in stable condition. Case is discussed with Dr. Spencer, ED attending who agrees with plan of care Undiagnosed new problem with uncertain prognosis? @ -[No] Drug Therapy requiring intensive monitoring for toxicity (Heparin, Nitro, Insulin, Cardizem)? @ -[No] Were any procedures done? @ -[No] Diagnosis/symptom? @ -Abdominal Pain - COVID-19 Acute, or Chronic, or Acute on Chronic? @ Acute Uncomplicated (without systemic symptoms) or Complicated (systemic symptoms)? @ -Uncomplicated Side effects of treatment? @ -[No] Exacerbation, Progression, or Severe Exacerbation? @ -[No] Poses a threat to life or bodily function? How? (Chest pain, [place], [place], pneumonia, PE, COPD, DKA, ARF, appy, cholecystitis, CVA, Diverticulitis, Homicidal, Suicidal, threat to staff... and all critical care pts) @ -no - Lab Data Result diagrams: 09/23/23 11:15 09/23/23 12:08 Lab Results 09/23/23 09/23/23 09/23/23 Range/Units 11:15 11:15 12:08 WBC 7.9 (3.8-10.6) k/uL RBC 4.16 (3.80-5.40) m/uL Hgb 14.0 (11.4-16.0) gm/dL Hct 41.5 (34.0-46.0) % MCV 99.8 (80.0-100.0) fL MCH 33.8 (25.0-35.0) pg MCHC 33.9 (31.0-37.0) g/dL RDW 12.8 (11.5-15.5) % Plt Count 188 (150-450) k/uL MPV 8.5 Neutrophils % 69 % Lymphocytes % 21 % Monocytes % 6 % Eosinophils % 2 % Basophils % 0 % Neutrophils # 5.5 (1.3-7.7) k/uL Lymphocytes # 1.7 (1.0-4.8) k/uL Monocytes # 0.5 (0-1.0) k/uL Eosinophils # 0.1 (0-0.7) k/uL Basophils # 0.0 (0-0.2) k/uL Sodium 132 L (137-145) mmol/L Potassium 5.8 H (3.5-5.1) mmol/L Chloride 103 (98-107) mmol/L Carbon Dioxide 19 L (22-30) mmol/L Anion Gap 10 mmol/L BUN 44 H (7-17) mg/dL Creatinine 1.56 H (0.52-1.04) mg/dL Est GFR (CKD-EPI)AfAm 34 (>60 ml/min/1.73 sqM) Est GFR (CKD-EPI)NonAf 30 (>60 ml/min/1.73 sqM) Glucose 88 (74-99) mg/dL Calcium 8.3 L (8.4-10.2) mg/dL Total Bilirubin 0.6 (0.2-1.3) mg/dL AST 40 H (14-36) U/L ALT 44 H (4-34) U/L Alkaline Phosphatase 48 (38-126) U/L Total Protein 5.8 L (6.3-8.2) g/dL Albumin 3.2 L (3.5-5.0) g/dL Influenza Type A (PCR) Not Detected (Not Detectd) Influenza Type B (PCR) Not Detected (Not Detectd) RSV (PCR) Not Detected (Not Detectd) SARS-CoV-2 (PCR) Detected A (Not Detectd) Disposition Clinical Impression: Ileostomy dysfunction, COVID-19, Abdominal pain Disposition: HOME SELF-CARE Condition: Stable Instructions (If sedation given, give patient instructions): Coronavirus Disease 2019 (COVID-19), Acute Nausea and Vomiting (ED), Long COVID (ED) Additional Instructions: Please monitor your symptoms closely Can assisted in place for another 5 days Please Return to the nearest emergency department if worsening cough, high fever or persistent nausea or vomiting develops Is patient prescribed a controlled substance at d/c from ED?: No Referrals: Bharati Molina MD [Primary Care Provider] - 1-2 days Time of Disposition: 13:40
[2023-09-23 14:34] VITALS: BP 141/72; PULSE 90; TEMP 97.9
== END 2023-09-23 14:27 | disposition home or self-care (01) ==
LOC: EC 10:16
DX: U07.1 COVID-19 (principal); K94.13 Enterostomy malfunction; I10 Essential (primary) hypertension; Z88.0 Allergy status to penicillin; Z88.6 Allergy status to analgesic agent; Z88.5 Allergy status to narcotic agent; Z88.1 Allergy status to other antibiotic agents; Z88.8 Allergy status to other drugs, medicaments and biological substances; Z79.82 Long term (current) use of aspirin; Z79.899 Other long term (current) drug therapy; Z90.49 Acquired absence of other specified parts of digestive tract
CPT/HCPCS: 36415; 80053; 85025; 87636; 74176; 99284; 96374; 96375 ×2; 96361 ×2; J2405; J3490; J1885

== ENCOUNTER 2023-09-27 05:42 | Inpatient (IN) | payer MEDICARE ==
[2023-09-27] MEDS ORDERED: SODIUM CHLORIDE 0.9% 1,000 ML IV STA (06:24)
[2023-09-27] MEDS ORDERED: KETOROLAC 15 MG/ML 1 ML VIAL IVP STA (06:26)
--- NOTE | 2023-09-27 06:41 | ED ---
SOB HPI - General Chief Complaint: Weakness Stated Complaint: Weakness Time Seen by Provider: 09/27/23 06:01 Source: patient, family, RN notes reviewed Mode of arrival: EMS Limitations: no limitations - History of Present Illness Initial Comments: This is an 88-year-old female who presents to the emergency department for weakness. Patient states that she has had a cough for the last couple of weeks, and today she felt very weak and short of breath. While nursing staff reports shortness of breath as the main issue, she states that this is not as severe and weakness is the bigger issue. She also has a reduced appetite and has not been eating or drinking for the last couple of days. Her son states that she called him this morning, and he went over to the house, and she was unable to stand up or move around on her own, prompting him to call EMS. She did test positive for COVID 4 days ago when she presented to the emergency department for abdominal pain related to her ileostomy bag as well as a nonproductive generalized cough. The cough was going on for 2 weeks at that point. Her workup regarding the ileostomy bag demonstrated no acute concerns and she was treated with IV fluids, Toradol, and Zofran which she felt was beneficial. However, with regards to the cough, she did test positive for Covid. She was vaccinated with Moderna but was not treated with Paxlovid due to how long her symptoms had been occurring at that point. - Related Data Home Medications Medication Instructions Recorded Confirmed Multivitamins, Thera [Multivitamin 1 tab PO Q48H 02/15/19 09/27/23 (formulary)] allopurinoL [Zyloprim] 100 mg PO DAILY 02/15/19 09/27/23 Cyanocobalamin (Vitamin B-12) 1,000 mcg PO DAILY 06/04/21 09/27/23 [Vitamin B-12] predniSONE 3 mg PO DAILY 06/04/21 09/27/23 Aspirin EC [Ecotrin Low Dose] 81 mg PO DAILY 08/23/23 09/27/23 Cholecalciferol [Vitamin D3 (25 50 mcg PO DAILY 08/23/23 09/27/23 Mcg = 1000 Iu)] Famotidine [Pepcid] 10 mg PO DAILY@1200 08/23/23 09/27/23 Folic Acid 1 mg PO DAILY 08/23/23 09/27/23 Magnesium Glycinate 350 Mg 350 mg PO BID 08/23/23 09/27/23 Ondansetron Odt [Zofran ODT] 4 mg PO Q8HR PRN 08/23/23 09/27/23 calcitrioL [Calcitriol] 0.25 mcg PO TUTH 08/23/23 09/27/23 Previous Rx's Medication Instructions Recorded Acetaminophen Tab [Tylenol] 650 mg PO Q6HR PRN tab 06/07/21 Allergies Allergy/AdvReac Type Severity Reaction Status Date / Time ceftriaxone Allergy Swelling Verified 09/27/23 12:46 ciprofloxacin [From Cipro] Allergy Anaphylaxis Verified 09/27/23 12:46 codeine Allergy Anaphylaxis Verified 09/27/23 12:46 hydrocodone [From Vicodin] Allergy Anaphylaxis Verified 09/27/23 12:46 ibuprofen [From Motrin] Allergy Rash/Hives Verified 09/27/23 12:46 oxycodone [From Percocet] Allergy Anaphylaxis Verified 09/27/23 12:46 Penicillins Allergy Rash/Hives Verified 09/27/23 12:46 prednisone Allergy Anaphylaxis Verified 09/27/23 12:46 propoxyphene Allergy Anaphylaxis Verified 09/27/23 12:46 [From Darvocet-N] ramipril [From Altace] Allergy Anaphylaxis Verified 09/27/23 12:46 Review of Systems ROS Statement: Those systems with pertinent positive or pertinent negative responses have been documented in the HPI. ROS Other: All systems not noted in ROS Statement are negative. Past Medical History Past Medical History: Hypertension Additional Past Medical History / Comment(s): illestomy, back pain, infected tooth, ear infection from ear wax, weakness, hard of hearing History of Any Multi-Drug Resistant Organisms: None Reported Past Surgical History: Bowel Resection, Cholecystectomy, Hysterectomy Additional Past Surgical History / Comment(s): illeostomy, left knee replacement, bowel resection Past Anesthesia/Blood Transfusion Reactions: No Reported Reaction Past Psychological History: No Psychological Hx Reported Smoking Status: Never smoker Past Alcohol Use History: None Reported Past Drug Use History: None Reported - Past Family History Mother Family Medical History: Diabetes Mellitus Father Family Medical History: Hypertension Additional Family Medical History / Comment(s): of heart attrack General Exam Limitations: no limitations General appearance: alert, in no apparent distress Head exam: Present: atraumatic, normocephalic, normal inspection Respiratory exam: Present: normal lung sounds bilaterally. Absent: respiratory distress, wheezes, rales, rhonchi, stridor Cardiovascular Exam: Present: regular rate, normal rhythm, normal heart sounds. Absent: systolic murmur, diastolic murmur, rubs, gallop, clicks Neurological exam: Present: alert, oriented X3, CN II-XII intact Psychiatric exam: Present: normal affect, normal mood Skin exam: Present: warm, dry, intact, normal color. Absent: rash Course Vital Signs 09/27/23 09/27/23 09/27/23 05:44 11:00 12:00 Temperature 97.5 F L Pulse Rate 69 76 81 Respiratory 19 18 18 Rate Blood Pressure 134/85 154/63 151/68 O2 Sat by Pulse 98 100 100 Oximetry Medical Decision Making - Medical Decision Making This is an 88-year-old female who presents to the emergency department for weakness. Was pt. sent in by a medical professional or institution? @ -No Did you speak to anyone other than the patient for history? @ -Her son provided the majority of the information. Did you review nursing and triage notes? @ -I disagree with the 3 days of shortness of breath. Patient had mild shortness of breath yesterday, however weakness is the bigger issue for her. Were old charts reviewed? @ -CT scan of the abdomen/pelvis from 09/23/23 demonstrating previous pancolectomy with Villatoro's pouch with some retained contrast material within the rectum. The right lower quadrant ileostomy was redemonstrated without small bowel dilation or concerns of obstruction. Differential Diagnosis? @ -Differential Weakness: Hypoglycemia, shock, sepsis, hyponatremia, anemia, infection, [place], ETOH, adverse medicine reaction, overdose, stroke, this is not meant to be an all-inclusive list. EKG interpreted by me (3pts min.)? @ -EKG interpreted by me demonstrating the following: Sinus rhythm. Ventricular rate 70 beats per minute, NE interval 191 ms, QRS duration 82 ms, QTC 417 ms. X-rays interpreted by me (1pt min.)? @ -Chest x-ray obtained, my interpretation identifies no localized consolidations or infiltrates. CT interpreted by me (1pt min.)? @ -Not obtained U/S interpreted by me (1pt. min.)? @ -Not obtained What testing was considered but not performed? (CT, X-rays, U/S, labs)? Why? @ -None What meds were considered but not given? Why? @ -None Did you discuss the management of the patient with other professionals? @ -Yes, Dr. Stearns, who accepts the patient for admission. Did you reconcile home meds? @ -Yes Was smoking cessation discussed for >3mins.? @ -I discussed smoking cessation for greater than 3 minutes. The risk of smoking were discussed with the patient including but not limited to risks of cancer, stroke, coronary artery disease and COPD. Also discussed with patient were multiple methods of quitting smoking. Lastly we discussed the financial cost of smoking. Was critical care preformed (if so, how long)? @ -No Were there social determinants of health that impacted care today? How? (Homelessness, low income, unemployed, alcoholism, drug addiction, transportation, low edu. Level, literacy, decrease access to med. care, care home, rehab)? @ -No Was there de-escalation of care discussed even if they declined? (Discuss DNR or withdrawal of care, Hospice)? @ -No What co-morbidities impacted this encounter? (DM, HTN, Smoking, COPD, CAD, Cancer, CVA, Hep., AIDS, mental health diagnosis, sleep apnea, morbid obesity)? @ -HTN, OA Was patient admitted / discharged? @ -Admitted. Lab work obtained revealing hyponatremia with a sodium of 125. While her kidney function is decreased, it is improved when compared with prior values. Magnesium mildly decreased at 1.5mg. This was replaced with 1g of Magnesium Sulfate. Urinalysis negative for signs of infection. Chest x-ray obtained revealing no acute process. Symptoms improved with IV fluids, Toradol, and Zofran. She did develop a "burning" sensation in her abdomen, and was given Pantoprazole and Pepcid, which was beneficial. However, she continued to feel very weak and was unable to get up or ambulate on her own. Given the weakness with associated hyponatremia, patient was admitted to medicine for further management. Consult placed for physical and occupational therapy. Undiagnosed new problem with uncertain prognosis? @ -None Drug Therapy requiring intensive monitoring for toxicity (Heparin, Nitro, Insulin, Cardizem)? @ -None Were any procedures done? @ -None Diagnosis/symptom? @ -Hyponatremia, hypomagnesemia, weakness Acute, or Chronic, or Acute on Chronic? @ -Acute Uncomplicated (without systemic symptoms) or Complicated (systemic symptoms)? @ -Uncomplicated Side effects of treatment? @ -None Exacerbation, Progression, or Severe Exacerbation] @ -Not applicable Poses a threat to life or bodily function? @ -Yes This case was discussed in detail with the attending ED physician, Dr. Cruz. Presentation, findings, and treatment plan discussed in detail as well. - Lab Data Result diagrams: 09/27/23 06:30 09/27/23 10:54 Lab Results 09/27/23 09/27/23 09/27/23 Range/Units 06:30 06:30 06:30 WBC 5.6 (3.8-10.6) k/uL RBC 3.75 L (3.80-5.40) m/uL Hgb 12.4 (11.4-16.0) gm/dL Hct 36.4 (34.0-46.0) % MCV 97.1 (80.0-100.0) fL MCH 33.1 (25.0-35.0) pg MCHC 34.1 (31.0-37.0) g/dL RDW 12.9 (11.5-15.5) % Plt Count 194 (150-450) k/uL MPV 9.2 Neutrophils % 53 % Lymphocytes % 35 % Monocytes % 6 % Eosinophils % 3 % Basophils % 0 % Neutrophils # 3.0 (1.3-7.7) k/uL Lymphocytes # 2.0 (1.0-4.8) k/uL Monocytes # 0.3 (0-1.0) k/uL Eosinophils # 0.2 (0-0.7) k/uL Basophils # 0.0 (0-0.2) k/uL Sodium (137-145) mmol/L Potassium (3.5-5.1) mmol/L Chloride (98-107) mmol/L Carbon Dioxide (22-30) mmol/L Anion Gap mmol/L BUN (7-17) mg/dL Creatinine (0.52-1.04) mg/dL Est GFR (CKD-EPI)AfAm (>60 ml/min/1.73 sqM) Est GFR (CKD-EPI)NonAf (>60 ml/min/1.73 sqM) Glucose (74-99) mg/dL Plasma Lactic Acid [place] 1.9 (0.7-2.0) mmol/L Calcium (8.4-10.2) mg/dL Magnesium (1.6-2.3) mg/dL Total Bilirubin (0.2-1.3) mg/dL AST (14-36) U/L ALT (4-34) U/L Alkaline Phosphatase (38-126) U/L Total Protein (6.3-8.2) g/dL Albumin (3.5-5.0) g/dL Urine Color Yellow Urine Appearance Clear (Clear) Urine pH 5.5 (5.0-8.0) Ur Specific [place] 1.017 (1.001-1.035) Urine Protein Negative (Negative) Urine Glucose (UA) Negative (Negative) Urine Ketones Negative (Negative) Urine Blood Negative (Negative) Urine Nitrite Negative (Negative) Urine Bilirubin Negative (Negative) Urine Urobilinogen <2.0 (<2.0) mg/dL Ur Leukocyte Esterase Negative (Negative) 09/27/23 Range/Units 10:54 WBC (3.8-10.6) k/uL RBC (3.80-5.40) m/uL Hgb (11.4-16.0) gm/dL Hct (34.0-46.0) % MCV (80.0-100.0) fL MCH (25.0-35.0) pg MCHC (31.0-37.0) g/dL RDW (11.5-15.5) % Plt Count (150-450) k/uL MPV Neutrophils % % Lymphocytes % % Monocytes % % Eosinophils % % Basophils % % Neutrophils # (1.3-7.7) k/uL Lymphocytes # (1.0-4.8) k/uL Monocytes # (0-1.0) k/uL Eosinophils # (0-0.7) k/uL Basophils # (0-0.2) k/uL Sodium 125 L (137-145) mmol/L Potassium 4.8 (3.5-5.1) mmol/L Chloride 96 L (98-107) mmol/L Carbon Dioxide 19 L (22-30) mmol/L Anion Gap 10 mmol/L BUN 25 H (7-17) mg/dL Creatinine 1.18 H (0.52-1.04) mg/dL Est GFR (CKD-EPI)AfAm 48 (>60 ml/min/1.73 sqM) Est GFR (CKD-EPI)NonAf 42 (>60 ml/min/1.73 sqM) Glucose 86 (74-99) mg/dL Plasma Lactic Acid [place] (0.7-2.0) mmol/L Calcium 8.6 (8.4-10.2) mg/dL Magnesium 1.5 L (1.6-2.3) mg/dL Total Bilirubin 0.9 (0.2-1.3) mg/dL AST 34 (14-36) U/L ALT 28 (4-34) U/L Alkaline Phosphatase 50 (38-126) U/L Total Protein 6.1 L (6.3-8.2) g/dL Albumin 3.4 L (3.5-5.0) g/dL Urine Color Urine Appearance (Clear) Urine pH (5.0-8.0) Ur Specific [place] (1.001-1.035) Urine Protein (Negative) Urine Glucose (UA) (Negative) Urine Ketones (Negative) Urine Blood (Negative) Urine Nitrite (Negative) Urine Bilirubin (Negative) Urine Urobilinogen (<2.0) mg/dL Ur Leukocyte Esterase (Negative) - Radiology Data Radiology results: report reviewed, image reviewed Disposition Clinical Impression: Nicotine dependence, Hyponatremia, Weakness, Hypomagnesemia Disposition: ADMITTED IP TO THIS HOSP
--- NOTE | 2023-09-27 07:37 | XR ---
EXAMINATION TYPE: XR chest 2V DATE OF EXAM: 09/27/2023 7:07 AM CLINICAL INDICATION:Female, 88 years old with history of Weakness; [facility] COMPARISON: Chest radiographs from 06/04/2021 TECHNIQUE: XR chest 2V Frontal and lateral views of the chest. FINDINGS: Lungs/Pleura: Prominent interstitial lung markings are seen scattered throughout the lungs. No eviden ce of focal consolidation, pneumothorax or pleural effusion. Pulmonary vascularity: Unremarkable. Heart/mediastinum: Cardiomediastinal silhouette is enlarged and stable. Atherosclerotic calcificatio ns are seen in the aorta. Musculoskeletal: No acute osseous pathology. IMPRESSION: 1. No acute cardiopulmonary disease process. 2. COPD changes.
[2023-09-27] MEDS ORDERED: ONDANSETRON 4 MG/2 ML VIAL IVP STA (07:46)
[2023-09-27] MEDS ORDERED: BENZONATATE 100 MG CAP PO STA (07:46)
[2023-09-27 07:50] LABS: Basophils % (A) 0 %; Eosinophils # (A) 0.2 k/uL (0-0.7); Eosinophils % (A) 3 %; HCT 36.4 % (34.0-46.0); HGB 12.4 gm/dL (11.4-16.0); Lymphocytes % (A) 35 %; MCH 33.1 pg (25.0-35.0); MCHC 34.1 g/dL (31.0-37.0); MCV 97.1 fL (80.0-100.0); Mean Platelet Volume 9.2; Monocytes # (A) 0.3 k/uL (0-1.0); Monocytes % (A) 6 %; Neutrophils % (A) 53 %; Platelet Count 194 k/uL (150-450); RBC 3.75 m/uL (3.80-5.40); RDW 12.9 % (11.5-15.5); WBC 5.6 k/uL (3.8-10.6)
[2023-09-27] MEDS ORDERED: FAMOTIDINE 20 MG/2 ML VIAL IV STA (09:32)
[2023-09-27] MEDS ORDERED: PANTOPRAZOLE 40 MG/10 ML VIAL IVP STA (09:32)
[2023-09-27 09:33] LABS: Appearance,Urine Clear (Clear); Bilirubin,Urine Negative (Negative); Blood,Urine Negative (Negative); Color,Urine Yellow; Glucose,Urine (UA) Negative (Negative); Ketones,Urine Negative (Negative); Leukocyte Esterase,Urine Negative (Negative); Nitrite,Urine Negative (Negative); PH, Urine 5.5 (5.0-8.0); Protein,Urine Negative (Negative); Specific Gravity,Urine 1.017 (1.001-1.035); Urobilinogen,Urine <2.0 mg/dL (<2.0)
[2023-09-27 11:39] LABS: ALT 28 U/L (4-34); AST 34 U/L (14-36); African American GFR (CKD) 48 (>60 ml/min/1.73 sqM); Albumin 3.4 g/dL (3.5-5.0); Alkaline Phosphatase 50 U/L (38-126); Anion Gap 10 mmol/L; Blood Urea Nitrogen 25 mg/dL (7-17); Calcium 8.6 mg/dL (8.4-10.2); Carbon Dioxide 19 mmol/L (22-30); Chloride 96 mmol/L (98-107); Glucose 86 mg/dL (74-99); Magnesium 1.5 mg/dL (1.6-2.3); Non-African American GFR(CKD) 42 (>60 ml/min/1.73 sqM); Potassium 4.8 mmol/L (3.5-5.1); Sodium 125 mmol/L (137-145); Total Bilirubin 0.9 mg/dL (0.2-1.3); Total Protein 6.1 g/dL (6.3-8.2)
[2023-09-27] MEDS ORDERED: MAGNESIUM SULFATE-D5W PMX 1 GM in DEXTROSE/WATER 1 100ML.BAG IVPB ONE (11:56)
[2023-09-27] MEDS ORDERED: NALOXONE 0.4 MG/ML 1 ML VIAL IV PRN (12:04)
[2023-09-27] MEDS ORDERED: ONDANSETRON 4 MG/2 ML VIAL IVP PRN (12:04)
[2023-09-27] MEDS ORDERED: ACETAMINOPHEN TAB 325 MG TAB PO PRN ×2 (12:04→12:55)
[2023-09-27] MEDS ORDERED: ONDANSETRON ODT 4 MG TAB PO PRN (12:55)
[2023-09-27] MEDS: MULTIVITAMINS, THERA 1 EACH TAB PO SCH (16:04)
[2023-09-27] MEDS: MAGNESIUM OXIDE 400 MG TAB PO SCH (20:37)
[2023-09-28] MEDS: predniSONE 1 MG TAB PO SCH (08:59)
[2023-09-28] MEDS: ASPIRIN 81 MG PO SCH (08:59)
[2023-09-28] MEDS: CHOLECALCIFEROL 25 MCG (1000 IU) TABLET PO SCH (08:59)
[2023-09-28] MEDS: CYANOCOBALAMIN 500 MCG TAB PO SCH (09:00)
[2023-09-28] MEDS: FOLIC ACID 1 MG TAB PO SCH (09:00)
[2023-09-28] MEDS: allopurinoL 100 MG TAB PO SCH (09:00)
[2023-09-28] MEDS: MAGNESIUM OXIDE 400 MG TAB PO SCH ×2 (09:00→21:19)
[2023-09-28 09:01] LABS: Basophils # (A) 0.01 X 10*3/uL (0.00-0.10); Basophils % (A) 0.2 %; Eosinophils # (A) 0.15 X 10*3/uL (0.04-0.35); Eosinophils % (A) 2.9 %; HCT 32.5 % (37.2-46.3); HGB 10.9 g/dL (12.0-15.0); Lymphocytes # (A) 1.79 X 10*3/uL (0.90-5.00); Lymphocytes % (A) 34.1 %; MCH 32.2 pg (27.0-32.0); MCHC 33.5 g/dL (32.0-37.0); MCV 96.2 FL (80.0-97.0); Mean Platelet Volume 10.2 FL (9.5-12.2); Monocytes # (A) 0.34 X 10*3/uL (0.20-1.00); Monocytes % (A) 6.5 %; NRBC Per 100 WBC 0 X 10*3/uL (0.00-0.01); Neutrophils # (A) 2.93 X 10*3/uL (1.80-7.70); Neutrophils % (A) 55.7 %; Platelet Count 199 X 10*3/uL (140-440); RBC 3.38 X 10*6/uL (4.10-5.20); RDW 12.2 % (11.5-14.5); WBC 5.25 X 10*3/uL (4.50-10.00)
[2023-09-28 09:11] LABS: ALT 20 U/L (8-44); AST 17 U/L (13-35); Albumin 3.3 g/dL (3.8-4.9); Albumin/Globulin Ratio 1.57 Ratio (1.60-3.17); Alkaline Phosphatase 45 U/L (41-126); BUN/Creat Ratio 15.62 Ratio (12.00-20.00); Blood Urea Nitrogen 20.3 mg/dL (9.0-27.0); Calcium 8.9 mg/dL (8.7-10.3); Carbon Dioxide 21.4 mmol/L (21.6-31.8); Chloride 95 mmol/L (96-109); Globulin 2.1 g/dL (1.6-3.3); Glucose 115 mg/dL (70-110); Potassium 4.6 mmol/L (3.5-5.5); Sodium 126 mmol/L (135-145); Total Bilirubin 0.6 mg/dL (0.3-1.2); Total Protein 5.4 g/dL (6.2-8.2)
[2023-09-28] MEDS: FAMOTIDINE 20 MG TAB PO SCH (11:25)
--- NOTE | 2023-09-28 12:10 | P.HPIM ---
History of Present Illness H&P Date: 09/27/23 Aileen Olvera, is an 88-year-old female who presented to [facility] emergency room with a chief complaint of generalized weakness and worsening shortness of breath. Patient tested positive for COVID-19 4 days prior to this admission, she was having poor oral intake, and generalized weakness and increasing shortness of breath. She was evaluated in the emergency room vital examination on presentation revealed a temperature of 97.5 pulse 69 respiration 19 and blood pressure 134/85 pulse ox 98% on room air Laboratory data reveals a white blood count of 5.6 hemoglobin 12.4 platelet count 194 sodium 125 potassium 4.8 chloride 96 CO2 19 BUN 25 creatinine 1.18 Testing in the emergency room revealed chest x-ray done in the emergency room revealed COPD changes and no acute cardiopulmonary disease process, EKG done in the emergency room revealed sinus rhythm normal EKG. Patient was admitted to medical floor for further evaluation and treatment Past medical history is significant for previous admissions with severe hyponatremia, history of hypertension, history of osteoarthritis, history of previous bowel resection with ileostomy placement. Past Medical History Past Medical History: Hypertension Additional Past Medical History / Comment(s): illestomy, back pain, infected tooth, ear infection from ear wax, weakness, hard of hearing History of Any Multi-Drug Resistant Organisms: None Reported Past Surgical History: Bowel Resection, Cholecystectomy, Hysterectomy Additional Past Surgical History / Comment(s): illeostomy, left knee replacement, bowel resection Past Anesthesia/Blood Transfusion Reactions: No Reported Reaction Past Psychological History: No Psychological Hx Reported Smoking Status: Never smoker Past Alcohol Use History: None Reported Past Drug Use History: None Reported - Past Family History Mother Family Medical History: Diabetes Mellitus Father Family Medical History: Hypertension Additional Family Medical History / Comment(s): of heart attrack Medications and Allergies Home Medications Medication Instructions Recorded Confirmed Type Multivitamins, Thera [Multivitamin 1 tab PO Q48H 02/15/19 09/27/23 History (formulary)] allopurinoL [Zyloprim] 100 mg PO DAILY 02/15/19 09/27/23 History Cyanocobalamin (Vitamin B-12) 1,000 mcg PO DAILY 06/04/21 09/27/23 History [Vitamin B-12] predniSONE 3 mg PO DAILY 06/04/21 09/27/23 History Acetaminophen Tab [Tylenol] 650 mg PO Q6HR PRN tab 06/07/21 09/27/23 Rx Aspirin EC [Ecotrin Low Dose] 81 mg PO DAILY 08/23/23 09/27/23 History Cholecalciferol [Vitamin D3 (25 50 mcg PO DAILY 08/23/23 09/27/23 History Mcg = 1000 Iu)] Famotidine [Pepcid] 10 mg PO DAILY@1200 08/23/23 09/27/23 History Folic Acid 1 mg PO DAILY 08/23/23 09/27/23 History Magnesium Glycinate 350 Mg 350 mg PO BID 08/23/23 09/27/23 History Ondansetron Odt [Zofran ODT] 4 mg PO Q8HR PRN 08/23/23 09/27/23 History calcitrioL [Calcitriol] 0.25 mcg PO TUTH 08/23/23 09/27/23 History Allergies Allergy/AdvReac Type Severity Reaction Status Date / Time ceftriaxone Allergy Swelling Verified 09/27/23 12:46 ciprofloxacin [From Cipro] Allergy Anaphylaxis Verified 09/27/23 12:46 codeine Allergy Anaphylaxis Verified 09/27/23 12:46 hydrocodone [From Vicodin] Allergy Anaphylaxis Verified 09/27/23 12:46 ibuprofen [From Motrin] Allergy Rash/Hives Verified 09/27/23 12:46 oxycodone [From Percocet] Allergy Anaphylaxis Verified 09/27/23 12:46 Penicillins Allergy Rash/Hives Verified 09/27/23 12:46 prednisone Allergy Anaphylaxis Verified 09/27/23 12:46 propoxyphene Allergy Anaphylaxis Verified 09/27/23 12:46 [From Darvocet-N] ramipril [From Altace] Allergy Anaphylaxis Verified 09/27/23 12:46 Physical Exam Vitals: Vital Signs Temp Pulse Resp BP Pulse Ox 09/27/23 12:00 81 18 151/68 100 09/27/23 11:00 76 18 154/63 100 09/27/23 05:44 97.5 F L 69 19 134/85 98 Intake and Output 09/26/23 09/27/23 09/27/23 22:59 06:59 14:59 Other: Weight 54.431 kg In general patient is alert and oriented x 3 in no distress HEENT head normocephalic and atraumatic Neck is supple no JVD no goiter no lymphadenopathy no carotid bruit Chest examination is clear to auscultation no crackles no wheezing Cardiac exam reveals regular heart sounds S1 and S2 no gallops no murmurs Abdomen is soft nontender no organomegaly with normal bowel sounds Extremity exam reveals no edema no cyanosis or clubbing Neurological examination reveals no gross focal deficits Results CBC & Chem 7: 09/28/23 05:02 09/28/23 05:02 Labs: Abnormal Lab Results - Last 24 Hours (Table) 09/27/23 09/27/23 Range/Units 06:30 10:54 RBC 3.75 L (3.80-5.40) m/uL Sodium 125 L (137-145) mmol/L Chloride 96 L (98-107) mmol/L Carbon Dioxide 19 L (22-30) mmol/L BUN 25 H (7-17) mg/dL Creatinine 1.18 H (0.52-1.04) mg/dL Magnesium 1.5 L (1.6-2.3) mg/dL Total Protein 6.1 L (6.3-8.2) g/dL Albumin 3.4 L (3.5-5.0) g/dL Assessment and Plan Plan: Acute COVID-19 infection Poor oral intake with evidence of dehydration, and prerenal azotemia Severe hyponatremia Underlying history of hypertension Underlying history of osteoarthritis Underlying history of gout Underlying history of previous history of bowel resection and ileostomy placement. At this time patient was started on IV fluid Home medications reviewed and reordered Nephrology consultation was requested for recurrent severe hyponatremia For DVT prophylaxis subcu heparin For GI prophylaxis patient is on Pepcid Will follow closely
[2023-09-28] MEDS: HEPARIN SODIUM,PORCINE 5,000 UNIT/ML 1 ML VIAL SQ SCH (21:19)
[2023-09-29] MEDS: predniSONE 1 MG TAB PO SCH (08:46)
[2023-09-29] MEDS: CYANOCOBALAMIN 500 MCG TAB PO SCH (08:46)
[2023-09-29] MEDS: CHOLECALCIFEROL 25 MCG (1000 IU) TABLET PO SCH (08:46)
[2023-09-29] MEDS: ASPIRIN 81 MG PO SCH (08:46)
[2023-09-29] MEDS: FOLIC ACID 1 MG TAB PO SCH (08:46)
[2023-09-29] MEDS: MAGNESIUM OXIDE 400 MG TAB PO SCH ×2 (08:47→20:05)
[2023-09-29] MEDS: allopurinoL 100 MG TAB PO SCH (08:47)
[2023-09-29] MEDS: HEPARIN SODIUM,PORCINE 5,000 UNIT/ML 1 ML VIAL SQ SCH ×2 (08:47→20:05)
[2023-09-29 09:21] LABS: Basophils # (A) 0.02 X 10*3/uL (0.00-0.10); Basophils % (A) 0.3 %; Eosinophils % (A) 3.5 %; HCT 32.5 % (37.2-46.3); HGB 11.1 g/dL (12.0-15.0); Lymphocytes # (A) 2.19 X 10*3/uL (0.90-5.00); Lymphocytes % (A) 38.2 %; MCH 32.3 pg (27.0-32.0); MCHC 34.2 g/dL (32.0-37.0); MCV 94.5 FL (80.0-97.0); Mean Platelet Volume 10.2 FL (9.5-12.2); Monocytes # (A) 0.48 X 10*3/uL (0.20-1.00); Monocytes % (A) 8.4 %; NRBC Per 100 WBC 0 X 10*3/uL (0.00-0.01); Neutrophils # (A) 2.81 X 10*3/uL (1.80-7.70); Neutrophils % (A) 49.1 %; Platelet Count 223 X 10*3/uL (140-440); RBC 3.44 X 10*6/uL (4.10-5.20); RDW 12.2 % (11.5-14.5); WBC 5.73 X 10*3/uL (4.50-10.00)
[2023-09-29 09:37] LABS: ALT 21 U/L (8-44); AST 18 U/L (13-35); Albumin 3.5 g/dL (3.8-4.9); Albumin/Globulin Ratio 1.75 Ratio (1.60-3.17); Alkaline Phosphatase 46 U/L (41-126); BUN/Creat Ratio 15.92 Ratio (12.00-20.00); Blood Urea Nitrogen 19.1 mg/dL (9.0-27.0); Calcium 9.2 mg/dL (8.7-10.3); Carbon Dioxide 23.2 mmol/L (21.6-31.8); Chloride 97 mmol/L (96-109); Glucose 93 mg/dL (70-110); Potassium 4.9 mmol/L (3.5-5.5); Sodium 129 mmol/L (135-145); Total Bilirubin 0.6 mg/dL (0.3-1.2); Total Protein 5.5 g/dL (6.2-8.2)
--- NOTE | 2023-09-29 10:57 | P.PN ---
Subjective Progress Note Date: 09/29/23 Aileen Olvera, is an 88-year-old female who presented to [facility] emergency room with a chief complaint of generalized weakness and worsening shortness of breath. Patient tested positive for COVID-19 4 days prior to this admission, she was having poor oral intake, and generalized wea kness and increasing shortness of breath. She was evaluated in the emergency room vital examination on presentation revealed a temperature of 97.5 pulse 69 respiration 19 and blood pressure 134/85 pulse ox 98% on room air Laboratory data reveals a white blood count of 5.6 hemoglobin 12.4 platelet co unt 194 sodium 125 potassium 4.8 chloride 96 CO2 19 BUN 25 creatinine 1.18 Testing in the emergency room revealed chest x-ray done in the emergency room revealed COPD changes and no acute cardiopulmonary disease process, EKG done in the emergency room revealed sinus rhythm normal EKG. Patient was admitted to medical floor for further evaluation and treatment Past medical history is significant for previous admissions with severe hyponatremia, history of hypertension, history of osteoarthritis, history of previous bowel resection with ileostomy placement. On 09/29/2023 patient's alert and oriented 3 currently sitting up in chair. Awaiting lab work results. Patient reports improvement. Diet is improving. Will consult PT OT. Current vital signs temp 90.1, heart rate 78, respiratory rate 16, blood pressure 147/70 fourth pulse ox 99% on room air Objective - Vital Signs Vital signs: Vital Signs Temp 98.1 F 09/29/23 08:00 Pulse 78 09/29/23 09:37 Resp 16 09/29/23 09:37 BP 147/74 09/29/23 08:00 Pulse Ox 99 09/29/23 08:00 FiO2 Intake & Output 09/28/23 09/29/23 09/29/23 18:59 06:59 18:59 Output Total 250 Balance -250 Output: Urine 250 Other: Voiding Method External Catheter External Catheter External Catheter # Voids 3 # Bowel Movements 2 - Exam In general patient is alert and oriented x 3 in no distress HEENT head normocephalic and atraumatic Neck is supple no JVD no goiter no lymphadenopathy no carotid bruit Chest examination is clear to auscultation no crackles no wheezing Cardiac exam reveals regular heart sounds S1 and S2 no gallops no murmurs Abdomen is soft nontender no organomegaly with normal bowel sounds Extremity exam reveals no edema no cyanosis or clubbing Neurological examination reveals no gross focal deficits - Labs CBC & Chem 7: 09/29/23 05:43 09/29/23 05:43 Labs: Abnormal Lab Results - Last 24 Hours (Table) 09/29/23 09/29/23 Range/Units 05:43 05:43 RBC 3.44 L (4.10-5.20) X 10*6/uL Hgb 11.1 L (12.0-15.0) g/dL Hct 32.5 L (37.2-46.3) % MCH 32.3 H (27.0-32.0) pg Sodium 129 L (135-145) mmol/L Est GFR (CKD-EPI) 44 L (>=60) Total Protein 5.5 L (6.2-8.2) g/dL Albumin 3.5 L (3.8-4.9) g/dL Assessment and Plan Assessment: Acute COVID-19 infection Poor oral intake with evidence of dehydration, and prerenal azotemia Severe hyponatremia Underlying history of hypertension Underlying history of osteoarthritis Underlying history of gout Underlying history of previous history of bowel resection and ileostomy placement. At this time patient was started on IV fluid Home medications reviewed and reordered Nephrology consultation was requested for recurrent severe hyponatremia For DVT prophylaxis subcu heparin For GI prophylaxis patient is on Pepcid Will follow closely
[2023-09-29] MEDS: FAMOTIDINE 20 MG TAB PO SCH (11:57)
--- NOTE | 2023-09-29 12:41 | P.NPCON ---
History of Present Illness - Reason for Consult hyponatremia - History of Present Illness Patient is an 88-year-old female who is admitted to the hospital with complaints of increased weakness. Patient was also short of breath. She tested positive for COVID-19 about 1 week prior to admission. Patient con tinued to have poor oral intake. She also has an ileostomy and has had increase output from her ileostomy. Sodium was noted to be 125. Patient had recently an episode of hyponatremia in May 2023 during her hospitalization. Sodium had improved with IV hydration. Sodium was 125 on admission and improved to 129 today. Patient received a fluid bolus in the ER. Review of Systems As per HPI Past Medical History Past Medical History: Hypertension Additional Past Medical History / Comment(s): illestomy, back pain, infected tooth, ear infection from ear wax, weakness, hard of hearing History of Any Multi-Drug Resistant Organisms: None Reported Past Surgical History: Bowel Resection, Cholecystectomy, Hysterectomy Additional Past Surgical History / Comment(s): illeostomy, left knee replacement, bowel resection Past Anesthesia/Blood Transfusion Reactions: No Reported Reaction Past Psychological History: No Psychological Hx Reported Smoking Status: Never smoker Past Alcohol Use History: None Reported Past Drug Use History: None Reported - Past Family History Mother Family Medical History: Diabetes Mellitus Father Family Medical History: Hypertension Additional Family Medical History / Comment(s): of heart attrack Medications and Allergies Home Medications Medication Instructions Recorded Confirmed Type Multivitamins, Thera [Multivitamin 1 tab PO Q48H 02/15/19 09/27/23 History (formulary)] allopurinoL [Zyloprim] 100 mg PO DAILY 02/15/19 09/27/23 History Cyanocobalamin (Vitamin B-12) 1,000 mcg PO DAILY 06/04/21 09/27/23 History [Vitamin B-12] predniSONE 3 mg PO DAILY 06/04/21 09/27/23 History Acetaminophen Tab [Tylenol] 650 mg PO Q6HR PRN tab 06/07/21 09/27/23 Rx Aspirin EC [Ecotrin Low Dose] 81 mg PO DAILY 08/23/23 09/27/23 History Cholecalciferol [Vitamin D3 (25 50 mcg PO DAILY 08/23/23 09/27/23 History Mcg = 1000 Iu)] Famotidine [Pepcid] 10 mg PO DAILY@1200 08/23/23 09/27/23 History Folic Acid 1 mg PO DAILY 08/23/23 09/27/23 History Magnesium Glycinate 350 Mg 350 mg PO BID 08/23/23 09/27/23 History Ondansetron Odt [Zofran ODT] 4 mg PO Q8HR PRN 08/23/23 09/27/23 History calcitrioL [Calcitriol] 0.25 mcg PO TUTH 08/23/23 09/27/23 History Allergies Allergy/AdvReac Type Severity Reaction Status Date / Time ceftriaxone Allergy Swelling Verified 09/27/23 12:46 ciprofloxacin [From Cipro] Allergy Anaphylaxis Verified 09/27/23 12:46 codeine Allergy Anaphylaxis Verified 09/27/23 12:46 hydrocodone [From Vicodin] Allergy Anaphylaxis Verified 09/27/23 12:46 ibuprofen [From Motrin] Allergy Rash/Hives Verified 09/27/23 12:46 oxycodone [From Percocet] Allergy Anaphylaxis Verified 09/27/23 12:46 Penicillins Allergy Rash/Hives Verified 09/27/23 12:46 prednisone Allergy Anaphylaxis Verified 09/27/23 12:46 propoxyphene Allergy Anaphylaxis Verified 09/27/23 12:46 [From Darvocet-N] ramipril [From Altace] Allergy Anaphylaxis Verified 09/27/23 12:46 Physical Exam Vitals: Vital Signs Temp Pulse Resp BP Pulse Ox 09/29/23 09:37 78 16 09/29/23 08:00 98.1 F 78 16 147/74 99 09/29/23 01:09 98.7 F 77 16 150/83 97 09/28/23 19:41 98.5 F 79 18 144/72 99 09/28/23 14:25 98.0 F 76 18 138/78 95 Intake and Output 09/28/23 09/29/23 09/29/23 22:59 06:59 14:59 Output Total 250 Balance -250 Output: Urine 250 Other: Voiding Method External Catheter External Catheter # Voids 3 # Bowel Movements 2 Patient is awake, comfortable, no acute distress Examination of the heart S1 and S2 Examination of the lungs bilateral breath sounds are heard Abdomen is soft nontender ileostomy, Lower extremity shows no evidence of edema [employer] exam grossly intact Results - Lab Results Most recent lab results Calcium 9.2 mg/dL (8.7-10.3) 09/29/23 05:43 Magnesium 1.5 mg/dL (1.6-2.3) L 09/27/23 10:54 09/29/23 05:43 09/29/23 05:43 Assessment and Plan Assessment: 1. Hypovolemic hyponatremia improved post saline bolus 2. COVID infection with poor oral intake 3. Hypovolemia 4. History of hypertension. 5. History of bowel resection and ileostomy Plan: Start normal saline Repeat sodium this evening Continue to encourage increased oral intake
[2023-09-29] MEDS: SODIUM CHLORIDE 0.9% 1,000 ML IV SCH (17:10)
[2023-09-29] MEDS: MULTIVITAMINS, THERA 1 EACH TAB PO SCH (17:10)
[2023-09-29 18:39] LABS: HCT 35.8 % (37.2-46.3); MCHC 33.5 g/dL (32.0-37.0); MCV 98.4 FL (80.0-97.0); Mean Platelet Volume 10.8 FL (9.5-12.2); NRBC Per 100 WBC 0 X 10*3/uL (0.00-0.01); Platelet Count 260 X 10*3/uL (140-440); RBC 3.64 X 10*6/uL (4.10-5.20); RDW 12.5 % (11.5-14.5)
[2023-09-29 18:40] LABS: Basophils # (A) 0.02 X 10*3/uL (0.00-0.10); Basophils % (A) 0.3 %; Eosinophils % (A) 1.4 %; Lymphocytes # (A) 1.22 X 10*3/uL (0.90-5.00); Lymphocytes % (A) 16.5 %; Monocytes # (A) 0.34 X 10*3/uL (0.20-1.00); Monocytes % (A) 4.6 %; Neutrophils # (A) 5.69 X 10*3/uL (1.80-7.70); Neutrophils % (A) 76.8 %
[2023-09-30] MEDS: SODIUM CHLORIDE 0.9% 1,000 ML IV SCH (00:32)
[2023-09-30] MEDS: FAMOTIDINE 20 MG TAB PO SCH (07:50)
[2023-09-30] MEDS: FOLIC ACID 1 MG TAB PO SCH (07:50)
[2023-09-30] MEDS: CHOLECALCIFEROL 25 MCG (1000 IU) TABLET PO SCH (07:50)
[2023-09-30] MEDS: CYANOCOBALAMIN 500 MCG TAB PO SCH (07:50)
[2023-09-30] MEDS: MAGNESIUM OXIDE 400 MG TAB PO SCH (07:50)
[2023-09-30] MEDS: allopurinoL 100 MG TAB PO SCH (07:51)
[2023-09-30] MEDS: ASPIRIN 81 MG PO SCH (07:51)
[2023-09-30] MEDS: predniSONE 1 MG TAB PO SCH (07:51)
[2023-09-30 08:36] LABS: Basophils # (A) 0.03 X 10*3/uL (0.00-0.10); Basophils % (A) 0.5 %; Eosinophils # (A) 0.15 X 10*3/uL (0.04-0.35); Eosinophils % (A) 2.4 %; HCT 32.5 % (37.2-46.3); HGB 10.9 g/dL (12.0-15.0); Lymphocytes # (A) 2.31 X 10*3/uL (0.90-5.00); Lymphocytes % (A) 36.4 %; MCH 32.5 pg (27.0-32.0); MCHC 33.5 g/dL (32.0-37.0); Mean Platelet Volume 10.2 FL (9.5-12.2); Monocytes # (A) 0.53 X 10*3/uL (0.20-1.00); Monocytes % (A) 8.4 %; NRBC Per 100 WBC 0 X 10*3/uL (0.00-0.01); Neutrophils # (A) 3.28 X 10*3/uL (1.80-7.70); Neutrophils % (A) 51.7 %; Platelet Count 232 X 10*3/uL (140-440); RBC 3.35 X 10*6/uL (4.10-5.20); RDW 12.4 % (11.5-14.5); WBC 6.34 X 10*3/uL (4.50-10.00)
[2023-09-30 08:53] LABS: ALT 19 U/L (8-44); AST 20 U/L (13-35); Albumin 3.5 g/dL (3.8-4.9); Albumin/Globulin Ratio 1.75 Ratio (1.60-3.17); Alkaline Phosphatase 44 U/L (41-126); BUN/Creat Ratio 17.18 Ratio (12.00-20.00); Blood Urea Nitrogen 18.9 mg/dL (9.0-27.0); Calcium 9.2 mg/dL (8.7-10.3); Carbon Dioxide 22.1 mmol/L (21.6-31.8); Chloride 94 mmol/L (96-109); Glucose 84 mg/dL (70-110); Potassium 4.7 mmol/L (3.5-5.5); Sodium 128 mmol/L (135-145); Total Bilirubin 0.5 mg/dL (0.3-1.2); Total Protein 5.5 g/dL (6.2-8.2)
--- NOTE | 2023-09-30 11:38 | P.PN ---
Subjective Patient is seen for follow-up for hyponatremia. 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 Serum sodium had dropped with IV fluids and increased back to 128 today. Tolerating oral intake. Objective - Vital Signs Vital signs: Vital Signs Temp 98.7 F 09/30/23 07:24 Pulse 72 09/30/23 07:24 Resp 20 09/30/23 07:24 BP 151/71 09/30/23 07:24 Pulse Ox 97 09/30/23 07:24 FiO2 Intake & Output 09/29/23 09/30/23 09/30/23 18:59 06:59 18:59 Other: Voiding Method External Catheter # Voids 4 6 # Bowel Movements 1 - Exam Patient is awake, comfortable, no acute distress hard of hearing Examination of the heart S1 and S2 Examination of the lungs bilateral breath sounds are heard Abdomen is soft nontender ileostomy, Lower extremity shows no evidence of edema [employer] exam grossly intact - Labs CBC & Chem 7: 09/30/23 05:13 09/30/23 05:13 Labs: Abnormal Lab Results - Last 24 Hours (Table) 09/29/23 09/29/23 09/30/23 Range/Units 12:35 17:36 05:13 RBC 3.64 L 3.35 L (4.10-5.20) X 10*6/uL Hgb 10.9 L (12.0-15.0) g/dL Hct 35.8 L 32.5 L (37.2-46.3) % MCV 98.4 H (80.0-97.0) FL MCH 33.0 H 32.5 H (27.0-32.0) pg Sodium 125 L (137-145) mmol/L Chloride (96-109) mmol/L Est GFR (CKD-EPI) (>=60) Total Protein (6.2-8.2) g/dL Albumin (3.8-4.9) g/dL 09/30/23 Range/Units 05:13 RBC (4.10-5.20) X 10*6/uL Hgb (12.0-15.0) g/dL Hct (37.2-46.3) % MCV (80.0-97.0) FL MCH (27.0-32.0) pg Sodium 128 L (137-145) mmol/L Chloride 94 L (96-109) mmol/L Est GFR (CKD-EPI) 49 L (>=60) Total Protein 5.5 L (6.2-8.2) g/dL Albumin 3.5 L (3.8-4.9) g/dL Assessment and Plan Assessment: 1. 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 2. COVID infection with poor oral intake 3. Hypovolemia 4. History of hypertension. 5. History of bowel resection and ileostomy Plan: Encourage increase oral intake. Kidney off of IV fluids Samsca 7.5 mg by mouth 1. Patient can be discharged from nephrology standpoint with repeat labs to be done as outpatient in 1-2 days time.
[2023-09-30] MEDS ORDERED: TOLVAPTAN 15 MG TABLET PO ONE (12:15)
--- NOTE | 2023-09-30 14:21 | P.DS ---
Providers Date of admission: 09/27/23 12:21 Expected date of discharge: 09/30/23 Attending physician: Vandana Stearns Consults: 09/28/23 12:13 Consult Physician Routine Consulting Provider: Tiffany Stone Consult Reason/Comments: hyponatremia Do you want consulting provider notified?: Yes Primary care physician: Bharati Molina [facility] Hospital Course: Discharge diagnosis Acute COVID-19 infection Poor oral intake with evidence of dehydration, and prerenal azotemia Severe hyponatremia Underlying history of hypertension Underlying history of osteoarthritis Underlying history of gout Underlying history of previous history of bowel resection and ileostomy placement. Hospital course Aileen Olvera, is an 88-year-old female who presented to [facility] emergency room with a chief complaint of generalized weakness and worsening shortness of breath. Patient tested positive for COVID-19 4 days prior to this admission, she was having poor oral intake, and generalized weakness and increasing shortness of breath. She was evaluated in the emergency room vital examination on presentation revealed a temperature of 97.5 pulse 69 respiration 19 and blood pressure 134/85 pulse ox 98% on room air Laboratory data reveals a white blood count of 5.6 hemoglobin 12.4 platelet count 194 sodium 125 potassium 4.8 chloride 96 CO2 19 BUN 25 creatinine 1.18 Testing in the emergency room revealed chest x-ray done in the emergency room revealed COPD changes and no acute cardiopulmonary disease process, EKG done in the emergency room revealed sinus rhythm normal EKG. Patient was admitted to medical floor for further evaluation and treatment Past medical history is significant for previous admissions with severe hypona tremia, history of hypertension, history of osteoarthritis, history of previous bowel resection with ileostomy placement. On 09/29/2023 patient's alert and oriented 3 currently sitting up in chair. Awaiting lab work results. Patient reports improvement. Diet is improving. Will consult PT OT. Current vital signs temp 90.1, heart rate 78, respiratory rate 16, blood pressure 147/70 fourth pulse ox 99% on room air On 09/30/2023 patient alert and oriented 3. Patient was unable to get IV fluid throughout the night due to lack of IV access. Patient was able to get IV this a.m. patient expressed that she is very eager to be DC'd home patient cleared for discharge from nephrology standpoint will give fluid until 5 PM and then patient may go home sodium today 128. Patient advised to follow-up with PCP for further management Patient Condition at Discharge: Stable Plan - Discharge Summary Discharge Rx Participant: No New Discharge Prescriptions: Continue Multivitamins, Thera [Multivitamin (formulary)] 1 tab PO Q48H allopurinoL [Zyloprim] 100 mg PO DAILY Cyanocobalamin (Vitamin B-12) [Vitamin B-12] 1,000 mcg PO DAILY predniSONE 3 mg PO DAILY Ondansetron Odt [Zofran ODT] 4 mg PO Q8HR PRN PRN Reason: Nausea Cholecalciferol [Vitamin D3 (25 Mcg = 1000 Iu)] 50 mcg PO DAILY Magnesium Glycinate 350 Mg 350 mg PO BID Folic Acid 1 mg PO DAILY Acetaminophen Tab [Tylenol] 650 mg PO Q6HR PRN tab PRN Reason: Fever And/ Or Pain Famotidine [Pepcid] 10 mg PO DAILY@1200 Aspirin EC [Ecotrin Low Dose] 81 mg PO DAILY calcitrioL [Calcitriol] 0.25 mcg PO TUTH Discharge Medication List Multivitamins, Thera [Multivitamin (formulary)] 1 tab PO Q48H 02/15/19 [History] allopurinoL [Zyloprim] 100 mg PO DAILY 02/15/19 [History] Cyanocobalamin (Vitamin B-12) [Vitamin B-12] 1,000 mcg PO DAILY 06/04/21 [History] predniSONE 3 mg PO DAILY 06/04/21 [History] Acetaminophen Tab [Tylenol] 650 mg PO Q6HR PRN tab 06/07/21 [Rx] Aspirin EC [Ecotrin Low Dose] 81 mg PO DAILY 08/23/23 [History] Cholecalciferol [Vitamin D3 (25 Mcg = 1000 Iu)] 50 mcg PO DAILY 08/23/23 [History] Famotidine [Pepcid] 10 mg PO DAILY@1200 08/23/23 [History] Folic Acid 1 mg PO DAILY 08/23/23 [History] Magnesium Glycinate 350 Mg 350 mg PO BID 08/23/23 [History] Ondansetron Odt [Zofran ODT] 4 mg PO Q8HR PRN 08/23/23 [History] calcitrioL [Calcitriol] 0.25 mcg PO TUTH 08/23/23 [History] Follow up Appointment(s)/Referral(s): Bharati Molina MD [Primary Care Provider] - 1-2 days Discharge Disposition: HOME SELF-CARE
[2023-09-30 15:33] VITALS: BP 168/72; PULSE 71; RESP 19; TEMP 97.8
== END 2023-09-30 17:46 | disposition home or self-care (01) | DRG 178 ==
LOC: EC 05:42 → 4SSUR 12:21
PROVIDERS: ADMIT Internal Medicine; ATTEND Internal Medicine
PROC: 05HB33Z Insertion of Infusion Device into Right Basilic Vein, Percutaneous Approach (ICD-10-PCS; principal; 2023-09-30 11:00)
DX: U07.1 COVID-19 (principal); E22.2 Syndrome of inappropriate secretion of antidiuretic hormone; E86.0 Dehydration; R79.89 Other specified abnormal findings of blood chemistry; I10 Essential (primary) hypertension; M10.9 Gout, unspecified; M19.90 Unspecified osteoarthritis, unspecified site; Z90.49 Acquired absence of other specified parts of digestive tract; E86.1 Hypovolemia; E83.42 Hypomagnesemia; Z79.82 Long term (current) use of aspirin; Z79.899 Other long term (current) drug therapy; Z82.49 Family history of ischemic heart disease and other diseases of the circulatory system; Z90.710 Acquired absence of both cervix and uterus; Z87.19 Personal history of other diseases of the digestive system; Z93.2 Ileostomy status; Z96.652 Presence of left artificial knee joint; Z88.1 Allergy status to other antibiotic agents; Z88.5 Allergy status to narcotic agent; Z88.6 Allergy status to analgesic agent
CPT/HCPCS: 36415; 71046; 80053; 81003; 83605; 83735; 83935; 84295; 85025; 93005; 96361; 96365; 96375; 99285

== ENCOUNTER → 2024-05-02 | Outpatient (CLI) | payer MEDICARE ==
[2024-05-02 10:31] VITALS: BP 182/81; PULSE 79; RESP 16; TEMP 97.5
--- NOTE | 2024-05-02 14:47 | P.PAINPG ---
PQRS Measure Charge Sheet Comment: HISTORY OF PRESENT ILLNESS: A 88 yr old female w daughter at side as a referral from [facility] presents today w severe and chronic LBP > 1 yr secondary to DDD, spondylosis and facet arthropathy without myelopathy for evaluation. Pt states pain level is provoked at 7 /10 in intensity, constant, localized in the lumbar spine, predominantly axial, achy in character w occasional shooting pain towards the back of the LEs. Pain is provoked by being upright in certain positions. Pain is alleviated by PT x 6 wks years ago, physician guided home stretching regimen daily since 2019 as pt has no means to go to PT facility, heat, medications (ASA, Tyl), topical Biofreeze, repositioning and rest . Oswestry axial pain score at 36. PMH: OA, HTN, Gout, Vitamin D Deficiency PSH: Ileostomy, Bowel Resection, Cholecystectomy, Hysterctomy, L Knee Replacement SH: Negative x3 FH: Mo- DM, Fa- CAD/ from [place] All: See list Meds: See list REVIEW OF ORGAN SYSTEMS: CONSTITUTIONAL: No fevers or chills. No recent weight loss. NEUROLOGICAL: + numbness and tingling along the distal extremities. No seizure disorders or headaches. MUSCULOSKELETAL: + pain PSYCHIATRIC: Denies current depression or suicidal thoughts. Physical Examinations : Constitutional : Cooperative , not in acute distress . Neurologic : Cranial nerve II to XII intact. No focal neurological deficits. Psychiatric : alert & oriented x 3. Matching mood & appropriate affect. Judgment & insight intact. Musculoskeletal : Cervical Spine Motor strength in the deltoid and biceps: Normal right side. Normal Left side Motor strength biceps and the wrist extensors: Normal right side . Normal left side Motor strength in the triceps muscle: Normal right side. Normal left side Deep tendon reflexes: Normal at the biceps. Normal at Brachioradialis. Normal at triceps Vertebral body tenderness to deep palpation over Cervical facet loading test: positive bilaterally Spurling test: positive bilaterally Neck distraction test: positive bilaterally Brandon sign: positive bilaterally Lumbar spine Motor strength lower extremities ,thigh and legs 5/5 Right side , 5/5 Left side Deep tendon reflexes : Normal Knee Jerk. Normal Ankle Jerk Vertebral body tenderness over Stanford Test positive Lumbar facet Loading Test: positive Right / positive Left Range of motion of the lumbar spine Flexion 30 degrees, extension 10 degrees Straight Leg Raise test: Left/ Right positive at degrees Parminder test: positive right / positive left. Severe tenderness over the Sacroiliac joint on the Right / Left sides Gaenslen test: positive bilaterally Seated flexion test: positive bilaterally. Sacral spine : Severe tenderness over the Sacroiliac joint: right side / left side Range of motion: Flexion of the lumbar spine <60 degrees Range of motion: Extension of the lumbar spine <20 degrees Gaenslen's Test positive Parminder test: positive right side / left side Thigh Thrust Test Sacral Thrust Test Imaging: Lumbar x ray from 03/31/24 Assessment/ Plan : Lumbar radiculopathy Recommendation of lumbar MRI non contrast M54.16. All questions answered. I have spent greater than 30 minutes on patient care today. Dr Barcenas was available by phone for the evaluation of this patient. The time was used to review the medical records including relevant urine studies and Prescription history (MAPs), review of the available imaging, evaluation and examination of the patient, coordination of care with the medical staff and if applicable referring physicians, as well as creation of the medical record PQRS Narrative: Smoking Status Current every day smoker Home Medications: Ambulatory Orders Multivitamins, Thera [Multivitamin (formulary)] 1 tab PO Q48H 02/15/19 allopurinoL [Zyloprim] 100 mg PO DAILY 02/15/19 Cyanocobalamin (Vitamin B-12) [Vitamin B-12] 1,000 mcg PO DAILY 06/04/21 predniSONE 3 mg PO DAILY 06/04/21 Acetaminophen Tab [Tylenol] 650 mg PO Q6HR PRN tab 06/07/21 Aspirin EC [Ecotrin Low Dose] 81 mg PO DAILY 08/23/23 Cholecalciferol [Vitamin D3 (25 Mcg = 1000 Iu)] 50 mcg PO DAILY 08/23/23 Famotidine [Pepcid] 10 mg PO DAILY@1200 08/23/23 Folic Acid 1 mg PO DAILY 08/23/23 Magnesium Glycinate 350 Mg 350 mg PO BID 08/23/23 Ondansetron Odt [Zofran ODT] 4 mg PO Q8HR PRN 08/23/23 calcitrioL 0.25 mcg PO TUTH 08/23/23 Controlled Substance Measures - Controlled Substance Measures Is patient prescribed a controlled substance at discharge?: No
== END ==
LOC: PNWHC3 09:50
PROVIDERS: ATTEND Specialist
DX: M47.26 Other spondylosis with radiculopathy, lumbar region (principal); F17.200 Nicotine dependence, unspecified, uncomplicated; Z88.8 Allergy status to other drugs, medicaments and biological substances; Z88.1 Allergy status to other antibiotic agents; Z88.5 Allergy status to narcotic agent; Z88.6 Allergy status to analgesic agent; Z88.0 Allergy status to penicillin
CPT/HCPCS: 99211

== ENCOUNTER → 2024-05-04 | Outpatient (CLI) | payer MEDICARE ==
--- NOTE | 2024-05-04 14:11 | MR ---
EXAMINATION TYPE: MR lumbar spine wo con DATE OF EXAM: 05/04/2024 COMPARISON: None HISTORY: Low back pain into both legs, Trip and fall TECHNIQUE: Multiplanar, multisequence images of the lumbar spine were acquired without IV contrast. There appears to be transitional vertebral segment with partial sacralization of L5. Prior to any marcio eduled intervention radiographic correlation is recommended. L1-L2: Normal disc appearance without desiccation. No herniation, protrusion or disc bulging. No ca nal stenosis is present. Foramina are patent bilaterally. L2-L3: Mild to moderate degenerative disc desiccation. Posterior disc bulge. Hypertrophy of the ligam entum flavum and facet joint arthropathy resulting in mild central stenosis. L3-L4: Moderate disc desiccation. Moderate posterior disc bulge. Severe central stenosis but with barbie ateral foraminal encroachment. L4-L5: Moderate disc desiccation. Moderate posterior disc bulge. Severe central stenosis but with barbie ateral foraminal encroachment. 3 mm grade 1 anterolisthesis L4 and L5. L5-S1: Normal disc appearance without desiccation. No herniation, protrusion or disc bulging. No ca nal stenosis is present. Foramina are patent bilaterally. Lumbar segments are intact. No paraspinal masses are identified. Conus medullaris has a normal appe arance. IMPRESSION: 1. Transitional vertebral segment as noted. 2. Multilevel central stenosis as outlined above.
== END | disposition home or self-care (01) ==
LOC: RADMRIMAIN 11:13
PROVIDERS: ATTEND Specialist
DX: M54.16 Radiculopathy, lumbar region (principal); M48.061 Spinal stenosis, lumbar region without neurogenic claudication
CPT/HCPCS: 72148

== ENCOUNTER → 2024-05-30 | Outpatient (CLI) | payer MEDICARE ==
--- NOTE | 2024-05-30 14:25 | P.PAINPG ---
PQRS Measure Charge Sheet Comment: HISTORY OF PRESENT ILLNESS: A 88 yr old female w daughter at side presents today w severe and chronic LBP > 1 yr secondary to DDD, spondylosis and facet arthropathy without myelopathy for MRI results. Pt states pain level is provoked at 8 /10 in intensity, constant, localized in the lumbar spine, predominantly axial, achy in character w occasional shooting pain towards the buttocks and thighs. Pain is provoked by being upright in certain positions. Pain is alleviated by PT x 6 wks years ago, physician guided home stretching regimen daily since 2019 as pt has no means to go to PT facility, heat, medications, topical, repositioning and rest . Interventional procedures include Medications include ASA, Tyl, BioFreeze Gel REVIEW OF ORGAN SYSTEMS: CONSTITUTIONAL: No fevers or chills. No recent weight loss. NEUROLOGICAL: + numbness and tingling along the distal extremities. No seizure disorders or headaches. MUSCULOSKELETAL: + pain PSYCHIATRIC: Denies current depression or suicidal thoughts. Physical Examinations : Constitutional : Cooperative , not in acute distress . Neurologic : Cranial nerve II to XII intact. No focal neurological deficits. Psychiatric : alert & oriented x 3. Matching mood & appropriate affect. Judgment & insight intact. Musculoskeletal : Cervical Spine Motor strength in the deltoid and biceps: Normal right side. Normal Left side Motor strength biceps and the wrist extensors: Normal right side . Normal left side Motor strength in the triceps muscle: Normal right side. Normal left side Deep tendon reflexes: Normal at the biceps. Normal at Brachioradialis. Normal at triceps Vertebral body tenderness to deep palpation over Cervical facet loading test: positive bilaterally Spurling test: positive bilaterally Neck distraction test: positive bilaterally Brandon sign: positive bilaterally Lumbar spine Motor strength lower extremities ,thigh and legs 5/5 Right side , 5/5 Left side Deep tendon reflexes : Normal Knee Jerk. Normal Ankle Jerk Vertebral body tenderness over L3 Stanford Test positive BL L3-L4 Lumbar facet Loading Test: positive Rig ht / positive Left Range of motion of the lumbar spine Flexion 30 degrees, extension 10 degrees Straight Leg Raise test: Left/ Right positive at degrees Parminder test: positive right / positive left. Severe tenderness over the Sacroiliac joint on the Right / Left sides Gaenslen test: positive bilaterally Seated flexion test: positive bilaterally. Sacral spine : Severe tenderness over the Sacroiliac joint: right side / left side Range of motion: Flexion of the lumbar spine <60 degrees Range of motion: Extension of the lumbar spine <20 degrees Gaenslen's Test positive Parminder test: positive right side / left side Thigh Thrust Test Sacral Thrust Test Imaging: Lumbar x ray from 03/31/24 MRI non contrast 05/04/24 reviewed Assessment/ Plan : Lumbar radiculopathy, L3-L4 mod disc bulge Recommendation of SAHWN L3-L4 #1. Risks, benefits of procedure discussed and pt verbalized understanding. Protocol for discontinuation/ continuation of medications malika procedure discussed. All questions answered. I have spent greater than 30 minutes on patient care today. Dr Barcenas was available by phone for the evaluation of this patient. The time was used to review the medical records including relevant urine studies and Prescription history (MAPs), review of the available imaging, evaluation and examination of the patient, coordination of care with the medical staff and if applicable referring physicians, as well as creation of the medical record PQRS Narrative: Smoking Status Current every day smoker Hx Alcohol Use (MH) No Home Medications: Ambulatory Orders Multivitamins, Thera [Multivitamin (formulary)] 1 tab PO Q48H 02/15/19 allopurinoL [Zyloprim] 100 mg PO DAILY 02/15/19 Cyanocobalamin (Vitamin B-12) [Vitamin B-12] 1,000 mcg PO DAILY 06/04/21 predniSONE 3 mg PO DAILY 06/04/21 Acetaminophen Tab [Tylenol] 650 mg PO Q6HR PRN tab 06/07/21 Aspirin EC [Ecotrin Low Dose] 81 mg PO DAILY 08/23/23 Cholecalciferol [Vitamin D3 (25 Mcg = 1000 Iu)] 50 mcg PO DAILY 08/23/23 Famotidine [Pepcid] 10 mg PO DAILY@1200 08/23/23 Folic Acid 1 mg PO DAILY 08/23/23 Magnesium Glycinate 350 Mg 350 mg PO BID 08/23/23 Ondansetron Odt [Zofran ODT] 4 mg PO Q8HR PRN 08/23/23 calcitrioL 0.25 mcg PO TUTH 08/23/23 Controlled Substance Measures - Controlled Substance Measures Is patient prescribed a controlled substance at discharge?: No
[2024-05-30 15:11] VITALS: BP 180/82; PULSE 80; RESP 16; TEMP 97.5
== END ==
LOC: PNWHC3 10:37
PROVIDERS: ATTEND Specialist
DX: G89.4 Chronic pain syndrome
CPT/HCPCS: 99211

== ENCOUNTER 2024-06-30 11:35 | Day surgery (SDC) | payer MEDICARE ==
[2024-06-24 12:05] VITALS: BMI 23.8
[2024-06-30] MEDS ORDERED: LACTATED RINGERS 1,000 ML IV SCH (11:53)
[2024-06-30 12:19] VITALS: TEMP 98.1
[2024-06-30 12:22] LABS: Glucose,Whole Blood 91 mg/dL (70-110)
[2024-06-30] MEDS ORDERED: IOPAMIDOL M200 10 ML VIAL ONE (12:57)
[2024-06-30] MEDS ORDERED: methylPREDNISolone ACETATE 40 MG/ML 1 ML VIAL ONE (12:57)
--- NOTE | 2024-06-30 13:05 | P.PCN ---
Date of Procedure: 06/30/24 Procedure(s) Performed: PREOPERATIVE DIAGNOSIS: 1- Lumbar Degenerative Disc Diseases 2-Lumbar spondylosis with Facet arthropathy without myelopathy. 3-lumbar radiculopathy POSTOPERATIVE DIAGNOSIS: 1-lumbar degenerative disc disease. 2-lumbar spondylosis with facet arthropathy without myelopathy. 3-lumbar radiculopathy PROCEDURE 1. Lumbar epidural steroid injection under fluoroscopic guidance at the L3-4 level. (Fluoroscopy imaging was available in radiology department) 2. Lumbar epidurogram. ANESTHESIA: Lidocaine 1% 3 and then only. EBL: Minimal PROCEDURE INDICATION: The patient with low back pain and radiculitis symptoms unresponsive to conservative treatment. Fluoroscopy was used to optimize visualization of the needle placement and to maximize safety. PROCEDURE DESCRIPTION / TECHNIQUE: The patient was seen and identified in the preoperative area. Risks, benefits, complications including but not limited to infections ,bleeding ,allergic reaction to the medications ,nerve damage and not complete pain releife , and alternatives were discussed with the patient. The patient agreed to proceed with the procedure and signed the consent, and vital signs were stable. Patient was taken to the OR and time out was completed. The patient was placed in the prone position on procedure table and a pillow was placed under the abdomen to reduce lumbar lordosis. The lumbosacral area was prepped and draped in the usual sterile fashion.ere closely monitored during the procedure. Vital signs was monitered during the entire procedure. Using anterior-posterior fluoroscopy, the L3-4 interlaminar space was identified and the skin over this site was marked and then infiltrated with 1% lidocaine subcutaneously. Subsequently, a 20-gauge Tuohy epidural needle was inserted and advanced toward the epidural space using the ``Loss of resistance technique and guided by AP and lateral fluoroscopy. The correct needle position in the epidural space was verified with the injection of 2 mL of the water soluble contrast dye Isovue 200 contrast and observing an excellent epidurogram with the epidural spread of the dye, after negative aspiration for blood and CSF and in the absence of paresthesias. Again after negative aspiration, a 6 ml mixture containing 40 mg of Depo-medrol ( Preservetive Free ), and 2 ml of preservative free Normal Saline, and 2 ml of preservative free lidocaine 1% solution was injected and a washout of epidurogram was seen. Needle was withdrawn intact, skin was cleansed, and bandages were applied. COMPLICATIONS: None DISPOSITION / PLANS: The patient was placed in a supine position and transferred to the recovery area in a stable condition for observation. There was no evidence of lower extremity motor or sensory deficit after the procedure. Patient was discharged from the recovery room after meeting discharge criteria. Home discharge instructions were given to the patient by the staff. The patient was reexamined prior to discharge. The patient will schedule a follow up in the clinic in 2-4 weeks.
[2024-06-30 13:17] VITALS: RESP 16
[2024-06-30 13:33] VITALS: BP 141/63; PULSE 73
--- NOTE | 2024-06-30 13:52 | FL ---
Fluoroscopy History: M54.16 [facility] with Stevenson Bey 2.3 sec fluoro time .[id number] DAP 1 image saved [facility], , 06/30/2024 1:50 PM
== END 2024-06-30 13:39 | disposition home or self-care (01) ==
LOC: ORPAIN 11:35
PROVIDERS: ATTEND Specialist
DX: M54.16 Radiculopathy, lumbar region
CPT/HCPCS: 62323

== ENCOUNTER → 2024-07-11 | Outpatient (CLI) | payer MEDICARE ==
[2024-07-11 10:51] VITALS: BP 171/84; PULSE 83; RESP 20
--- NOTE | 2024-07-11 15:06 | P.PAINPG ---
PQRS Measure Charge Sheet Comment: HISTORY OF PRESENT ILLNESS: A 88 yr old female w daughter at side presents today w severe and chronic LBP > 1 yr secondary to radiculopathy, spondylosis and facet arthropathy without myelopathy, R Sacroiliitis for evaluation s/p SHAWN L3-L4 #1. Pt states she experienced 65% pain relief x 2 wks s/p procedure. Pt states pain level is provoked at 3 /10 in intensity, constant, localized in the lumbar spine, predominantly axial, achy in character w occasional shooting pain towards the buttocks and thighs. Pain is provoked by being upright in certain positions. Pain is alleviated by PT x 6 wks years ago, physician guided home stretching regimen daily since 2019 as pt has no means to go to PT facility, heat, medications, topical, repositioning and rest . Interventional procedures include SHAWN L3-L4 x1 Medications include ASA, Tyl, BioFreeze Gel REVIEW OF ORGAN SYSTEMS: CONSTITUTIONAL: No fevers or chills. No recent weight loss. NEUROLOGICAL: + numbness and tingling along the distal extremities. No seizure disorders or headaches. MUSCULOSKELETAL: + pain PSYCHIATRIC: Denies current depression or suicidal thoughts. Physical Examinations : Constitutional : Cooperative , not in acute distress . Neurologic : Cranial nerve II to XII intact. No focal neurological deficits. Psychiatric : alert & oriented x 3. Matching mood & appropriate affect. Judgment & insight intact. Musculoskeletal : Cervical Spine Motor strength in the deltoid and biceps: Normal right side. Normal Left side Motor strength biceps and the wrist extensors: Normal right side . Normal left side Motor strength in the triceps muscle: Normal right side. Normal left side Deep tendon reflexes: Normal at the biceps. Normal at Brachioradialis. Normal at triceps Vertebral body tenderness to deep palpation over Cervical facet loading test: positive bilaterally Spurling test: positive bilaterally Neck distraction test: positive bilaterally Brandon sign: positive bilaterally Lumbar spine Motor strength lower extremities ,thigh and legs 5/5 Right side , 5/5 Left side Deep tendon reflexes : Normal Knee Jerk. Normal Ankle Jerk Vertebral body tenderness over L3 Stanford Test positive BL L3-L4 Lumbar facet Loading Test: positive Right / positive Left Range of motion of the lumbar spine Flexion 30 degrees, extension 10 degrees Straight Leg Raise test: Left/ Right positive at degrees Parminder test: positive right / positive left. Severe tenderness over the Sacroiliac joint on the Right / Left sides Gaenslen test: positive bilaterally Seated flexion test: positive bilaterally. Sacral spine : Severe tenderness over the Sacroiliac joint: right side / left side Range of motion: Flexion of the lumbar spine <60 degrees Range of motion: Extension of the lumbar spine <20 degrees Gaenslen's Test positive R Parminder test: positive right side / left side Thigh Thrust Test R positive Sacral Thrust Test Imaging: Lumbar x ray from 03/31/24 MRI non contrast 05/04/24 reviewed Assessment/ Plan : Lumbar radiculopathy, L3-L4 mod disc bulge, R Sacroiliitis Recommendation of R SI injection #1. Risks, benefits of procedure discussed and pt verbalized understanding. Protocol for discontinuation/ continuation of medications malika procedure discussed. All questions answered. I have spent greater than 30 minutes on patient care today. Dr Barcenas was available by phone for the evaluation of this patient. The time was used to review the medical records including relevant urine studies and Prescription history (MAPs), review of the available imaging, evaluation and examination of the patient, coordination of care with the medical staff and if applicable referring physicians, as well as creation of the medical record PQRS Narrative: Smoking Status Current every day smoker Hx Alcohol Use (MH) No Home Medications: Ambulatory Orders Multivitamins, Thera [Multivitamin (formulary)] 1 tab PO Q48H 02/15/19 allopurinoL [Zyloprim] 100 mg PO DAILY 02/15/19 Cyanocobalamin (Vitamin B-12) [Vitamin B-12] 1,000 mcg PO DAILY 06/04/21 predniSONE 3 mg PO DAILY 06/04/21 Aspirin EC [Ecotrin Low Dose] 81 mg PO DAILY 08/23/23 Cholecalciferol [Vitamin D3 (25 Mcg = 1000 Iu)] 25 mcg PO DIRECTED 08/23/23 Magnesium Glycinate 350 Mg 350 mg PO TID 08/23/23 calcitrioL 0.25 mcg PO DIRECTED 08/23/23 Acetaminophen [Tylenol Extra Strength] 500 - 1,000 mg PO BID 06/24/24 Cholestyramine (Unknown Dose) 1 tab PO DIRECTED PRN 06/24/24 Folic Acid 0.4 mg PO DAILY 06/24/24 Krill/[place]-3/Dha/Epa/Lipids [Krill Oil 350 mg Softgel] 500 mg PO DAILY 06/24/24 Controlled Substance Measures - Controlled Substance Measures Is patient prescribed a controlled substance at discharge?: No
== END | disposition home or self-care (01) ==
LOC: PNWHC3 10:08
PROVIDERS: ATTEND Specialist
DX: M54.16 Radiculopathy, lumbar region
CPT/HCPCS: 99211

== ENCOUNTER 2024-08-02 11:40 | Day surgery (SDC) | payer MEDICARE ==
[2024-08-02 12:09] VITALS: RESP 16; TEMP 98.2
[2024-08-02] MEDS ORDERED: ROPIVACAINE 5MG/ML 20ML VIAL ONE (13:27)
[2024-08-02] MEDS ORDERED: methylPREDNISolone ACETATE 40 MG/ML 1 ML VIAL ONE (13:27)
[2024-08-02] MEDS ORDERED: IOPAMIDOL M300 15ML VIAL ONE (13:27)
--- NOTE | 2024-08-02 13:53 | FL ---
Intraoperative/procedural fluoroscopic services were provided for right SI pain management injection. Total fluoroscopy time is 28.0 seconds with a total of 3 submitted images to PACS. Total DAP [id number] mGym2. Please see the operative note for further details. [facility], , 08/02/2024 1:50 PM
--- NOTE | 2024-08-02 13:54 | P.PCN ---
Description of Procedure: Preprocedure diagnosis. Sacroiliac joint arthropathy. Postprocedure diagnosis. As above. Procedure done. Injection of the radio contrast material into right sacroiliac joint, sacroiliac joint arthrogram, interpretation of arthrogram. right sacroiliac joint injection with local anesthetics and steroid under fluoroscopic guidance. Anesthesia. Local anesthetic infiltration. Continuous EKG, pulse ox, blood pressure, and verbal communication was maintained with the patient in OR. Blood loss. Minimal. Indication. Sacroiliac joint arthropathy. Discussed the procedure, alternatives, complications which may include infection,bleeding, nerve damage, aggravation of pain which could be permanent. Patient understands and questions were answered. Procedure note. After getting consent patient in OR in prone position. Back prepped with chlorhexidine and draped in sterile manner. After injecting 10 mL of 1% lidocaine subcutaneously, a 22-gauge spinal needle was introduced under tunnel vision of the fluoroscope in the lower and posterior one third of right sacroiliac joint. After needle position confirmation by AP and crosstable lateral view, 1 mL of Isovue 200 contrast was injected. Contrast was noted to be into the sacroiliac joint. After repeat negative aspiration, 2.5 mL solution was injected which consists of 1.5 ml of 0.5% Ropivacaine mixed with 1 mL of 40 mg Depo-Medrol. After the procedure needles were taken out. Bandage applied. Disposition. Patient tolerated the procedure well. No complication. Patient was discharged home in stable condition.
[2024-08-02 14:10] VITALS: BP 150/74; PULSE 77
== END 2024-08-02 14:22 ==
LOC: ORPAIN 11:40
PROVIDERS: ATTEND Pain Medicine Interventional Pain Medicine
DX: M47.898 Other spondylosis, sacral and sacrococcygeal region (principal)
CPT/HCPCS: 27096; Q9967; J2795; J1010

== ENCOUNTER → 2024-08-18 | Outpatient (CLI) | payer MEDICARE ==
[2024-08-18 11:02] VITALS: BP 162/81; PULSE 85; RESP 16; TEMP 97.7
--- NOTE | 2024-08-18 14:35 | P.PAINPG ---
PQRS Measure Charge Sheet Comment: HISTORY OF PRESENT ILLNESS: An 89 yr old female w daughter at side presents today w severe and chronic LBP > 1 yr secondary to radiculopathy, spondylosis and facet arthropathy without myelopathy, R Sacroiliitis for evaluation s/p R SI injection #1. Pt states she experienced >60% pain relief x 2 wks s/p procedure. Pt states pain level is provoked at 5 /10 in intensity, intermittent, localized in the lumbar spine, predominantly axial, achy in character w occasional shooting pain towards the buttocks and thighs. Pain is provoked by being upright in certain positions. Pain is alleviated by PT x 6 wks years ago, physician guided home stretching regimen daily since 2019 as pt has no means to go to PT facility, heat, medications, topical, repositioning and rest . Interventional procedures include SHAWN L3-L4 x1, R SI injection x1 (Jul 2024) Medications include ASA, Tyl, BioFreeze Gel REVIEW OF ORGAN SYSTEMS: CONSTITUTIONAL: No fevers or chills. No recent weight loss. NEUROLOGICAL: + numbness and tingling along the distal extremities. No seizure disorders or headaches. MUSCULOSKELETAL: + pain PSYCHIATRIC: Denies current depression or suicidal thoughts. Physical Examinations : Constitutional : Cooperative , not in acute distress . Neurologic : Cranial nerve II to XII intact. No focal neurological deficits. Psychiatric : alert & oriented x 3. Matching mood & appropriate affect. Judgment & insight intact. Musculoskeletal : Cervical Spine Motor strength in the deltoid and biceps: Normal right side. Normal Left side Motor strength biceps and the wrist extensors: Normal right side . Normal left side Motor strength in the triceps muscle: Normal right side. Normal left side Deep tendon reflexes: Normal at the biceps. Normal at Brachioradialis. Normal at triceps Vertebral body tenderness to deep palpation over Cervical facet loading test: positive bilaterally Spurling test: positive bilaterally Neck distraction test: positive bilaterally Brandon sign: positive bilaterally Lumbar spine Motor strength lower extremities ,thigh and legs 5/5 Right side , 5/5 Left side Deep tendon reflexes : Normal Knee Jerk. Normal Ankle Jerk Vertebral body tenderness over L3 Stanford Test positive BL L3-L4 Lumbar facet Loading Test: positive Right / positive Left Range of motion of the lumbar spine Flexion 30 degrees, extension 10 degrees Straight Leg Raise test: Left/ Right positive at degrees Parminder test: positive right / positive left. Severe tenderness over the Sacroiliac joint on the Right / Left sides Gaenslen test: positive bilaterally Seated flexion test: positive bilaterally. Sacral spine : Severe tenderness over the Sacroiliac joint: right side / left side Range of motion: Flexion of the lumbar spine <60 degrees Range of motion: Extension of the lumbar spine <20 degrees Gaenslen's Test positive R Parminder test: positive right side / left side Thigh Thrust Test R positive Sacral Thrust Test Imaging: Lumbar x ray from 03/31/24 MRI non contrast 05/04/24 reviewed Assessment/ Plan : Lumbar radiculopathy, L3-L4 mod disc bulge, R Sacroiliitis Will manage residual pain and may RTC on an as needed basis. All questions answered. I have spent greater than 30 minutes on patient care today. Dr Barcenas was available by phone for the evaluation of this patient. The time was used to review the medical records including relevant urine studies and Prescription history (MAPs), review of the available imaging, evaluation and examination of the patient, coordination of care with the medical staff and if applicable referring physicians, as well as creation of the medical record PQRS Narrative: Smoking Status Current every day smoker Narcotic Agreement Date Signed 07/11/24 Hx Alcohol Use (MH) No Home Medications: Ambulatory Orders Multivitamins, Thera [Multivitamin (formulary)] 1 tab PO Q48H 02/15/19 allopurinoL [Zyloprim] 100 mg PO DAILY 02/15/19 Cyanocobalamin (Vitamin B-12) [Vitamin B-12] 1,000 mcg PO DAILY 06/04/21 predniSONE 3 mg PO DAILY 06/04/21 Aspirin EC [Ecotrin Low Dose] 81 mg PO DAILY 08/23/23 Cholecalciferol [Vitamin D3 (25 Mcg = 1000 Iu)] 25 mcg PO DIRECTED 08/23/23 Magnesium Glycinate 350 Mg 350 mg PO TID 08/23/23 calcitrioL 0.25 mcg PO DIRECTED 08/23/23 Acetaminophen [Tylenol Extra Strength] 500 - 1,000 mg PO BID 06/24/24 Cholestyramine (Unknown Dose) 1 tab PO DIRECTED PRN 06/24/24 Folic Acid 0.4 mg PO DAILY 06/24/24 Krill/[place]-3/Dha/Epa/Lipids [Krill Oil 350 mg Softgel] 500 mg PO DAILY 06/24/24 Controlled Substance Measures - Controlled Substance Measures Is patient prescribed a controlled substance at discharge?: No
== END ==
LOC: PNWHC3 10:41
PROVIDERS: ATTEND Specialist
DX: M46.1 Sacroiliitis, not elsewhere classified (principal); M51.16 Intervertebral disc disorders with radiculopathy, lumbar region; F17.200 Nicotine dependence, unspecified, uncomplicated; Z88.8 Allergy status to other drugs, medicaments and biological substances; Z88.6 Allergy status to analgesic agent; Z88.5 Allergy status to narcotic agent; Z88.1 Allergy status to other antibiotic agents
CPT/HCPCS: 99211

== ENCOUNTER 2025-03-19 09:28 | Observation (INO) | payer MEDICARE ==
--- NOTE | 2025-03-19 10:45 | ED ---
General Adult HPI - General Chief complaint: Headache Stated complaint: Headache/BP Issues Time Seen by Provider: 03/19/25 09:40 Source: patient, family, RN notes reviewed Mode of arrival: wheelchair Limitations: no limitations - History of Present Illness Initial comments: 89-year-old female presents emergency room with complaints of headache, intermittent blurred vision, and hypertension. Patient states that over the past month she has been monitoring her blood pressures at home that been elevated with highest numbers being in the 200s with above number being over 100s. Patient had appointment with her primary care provider on Thursday where she was started on a antihypertensive, does not remove the name, however pharmacy is out of this medication until Thursday. Patient said that she was concerned that her blood pressure was 200s over 110s and is reporting for further evaluation. States that she has been experiencing a intermittent headache over the past month with her blood pressure is fluctuating. Patient denies chest pain, difficulty breathing, peripheral edema, heart palpitations, urinary changes. - Related Data Home Medications Medication Instructions Recorded Confirmed Multivitamins, Thera [Multivitamin 1 tab PO Q48H 02/15/19 08/18/24 (formulary)] allopurinoL [Zyloprim] 100 mg PO DAILY 02/15/19 08/18/24 Cyanocobalamin (Vitamin B-12) 1,000 mcg PO DAILY 06/04/21 08/18/24 [Vitamin B-12] predniSONE 3 mg PO DAILY 06/04/21 08/18/24 Aspirin EC [Ecotrin Low Dose] 81 mg PO DAILY 08/23/23 08/18/24 Cholecalciferol [Vitamin D3 (25 25 mcg PO DIRECTED 08/23/23 08/18/24 Mcg = 1000 Iu)] Magnesium Glycinate 350 Mg 350 mg PO TID 08/23/23 08/18/24 calcitrioL 0.25 mcg PO DIRECTED 08/23/23 08/18/24 Acetaminophen [Tylenol Extra 500 - 1,000 mg PO BID 06/24/24 08/18/24 Strength] Cholestyramine (Unknown Dose) 1 tab PO DIRECTED PRN 06/24/24 08/18/24 Folic Acid 0.4 mg PO DAILY 06/24/24 08/18/24 Krill/[place]-3/Dha/Epa/Lipids 500 mg PO DAILY 06/24/24 08/18/24 [Krill Oil 350 mg Softgel] Allergies Allergy/AdvReac Type Severity Reaction Status Date / Time ceftriaxone Allergy Swelling Verified 03/19/25 09:53 ciprofloxacin [From Cipro] Allergy Anaphylaxis Verified 03/19/25 09:53 codeine Allergy Anaphylaxis Verified 03/19/25 09:53 hydrocodone [From Vicodin] Allergy Anaphylaxis Verified 03/19/25 09:53 ibuprofen [From Motrin] Allergy Rash/Hives Verified 03/19/25 09:53 oxycodone [From Percocet] Allergy Anaphylaxis Verified 03/19/25 09:53 Penicillins Allergy Rash/Hives Verified 03/19/25 09:53 propoxyphene Allergy Anaphylaxis Verified 03/19/25 09:53 [From Darvocet-N] ramipril [From Altace] Allergy Anaphylaxis Verified 03/19/25 09:53 Review of Systems ROS Statement: Those systems with pertinent positive or pertinent negative responses have been documented in the HPI. ROS Other: All systems not noted in ROS Statement are negative. Past Medical History Past Medical History: Hearing Disorder / Deafness, Hypertension, Osteoarthritis (OA), Renal Disease Additional Past Medical History / Comment(s): Illestomy, back pain, weakness, bilateral hearing aids, CKD - Stage 3B, Degenerative Disc Disease, spinal stenosis, no current hypertension. History of Any Multi-Drug Resistant Organisms: VRE Date of last positivie culture/infection: 12/04/2005 MDRO Source:: after bowel surgery Past Surgical History: Bowel Resection, Cholecystectomy, Hernia Repair, Hy sterectomy, Joint Replacement Additional Past Surgical History / Comment(s): Illeostomy(in hospital for 5 months after the surgery, got infection, was unconscious for 2 weeks), left knee replacement, bowel resection, gland removed from neck. Past Anesthesia/Blood Transfusion Reactions: No Reported Reaction Past Psychological History: No Psychological Hx Reported Smoking Status: Never smoker Past Alcohol Use History: None Reported Past Drug Use History: None Reported - Past Family History Mother Family Medical History: Diabetes Mellitus Additional Family Medical History / Comment(s): Heart problems. Father Family Medical History: Hypertension, Myocardial Infarction (MS) Additional Family Medical History / Comment(s): of heart attrack Sister(s) Family Medical History: Dementia General Exam Limitations: no limitations General appearance: alert, in no apparent distress ENT exam: Present: normal exam, mucous membranes moist Respiratory exam: Present: normal lung sounds bilaterally. Absent: respiratory distress, wheezes, rales, rhonchi, stridor Cardiovascular Exam: Present: regular rate, normal rhythm, normal heart sounds. Absent: systolic murmur, diastolic murmur, rubs, gallop, clicks GI/Abdominal exam: Present: soft, normal bowel sounds. Absent: distended, tenderness, guarding, rebound, rigid Extremities exam: Present: normal inspection, full ROM, normal capillary refill. Absent: tenderness, pedal edema, joint swelling, calf tenderness Back exam: Present: normal inspection Skin exam: Present: warm, dry, intact, normal color. Absent: rash Course Vital Signs 03/19/25 03/19/25 03/19/25 09:50 12:57 14:22 Temperature 98 F Pulse Rate 82 78 75 Respiratory 20 20 20 Rate Blood Pressure 192/75 175/85 167/110 O2 Sat by Pulse 97 99 99 Oximetry 03/19/25 15:03 Temperature Pulse Rate 75 Respiratory 20 Rate Blood Pressure 179/107 O2 Sat by Pulse 99 Oximetry Medical Decision Making - Medical Decision Making Was pt. sent in by a medical professional or institution (, PA, DENITRATOR, urgent care, hospital, or [place] health care facility...) When possible be specific @ -No Did you speak to anyone other than the patient for history (EMS, parent, family, police, friend...)? What history was obtained from this source @ -No Did you review nursing and triage notes (agree or disagree)? Why? @ -I reviewed and agree with nursing and triage notes Were old charts reviewed (outside hosp., previous admission, EMS record, old EKG, old radiological studies, urgent care reports/EKG's, [place] health care facility records)? Report findings @ -No old charts were reviewed Differential Diagnosis (chest pain, altered mental status, abdominal pain women, abdominal pain men, vaginal bleeding, weakness, fever, dyspnea, syncope, headache, dizziness, GI bleed, back pain, seizure, CVA, palpatations, mental health, musculoskeletal)? @ -Differential Headache: Migraine, tension, cluster, carbon monoxide, central venous thrombosis, pension karma temporal arteritis, acute closure glaucoma, intercranial hemorrhage, mastoiditis, sinusitis, head injury, this is not meant to be an all-inclusive list. EKG interpreted by me (3pts min.). @ -Completed at 1105 sinus rhythm with a ventricular of 71, MS interval 203, QRS 81, QT 384, QTc 406. X-rays interpreted by me (1pt min.). @ -None done CT interpreted by me (1pt min.). @ -CT of the brain without contrast no acute intracranial process. U/S interpreted by me (1pt. min.). @ -None done What testing was considered but not performed or refused? (CT, X-rays, U/S, labs)? Why? @ -None What meds were considered but not given or refused? Why? @ -Aspirin 325 was considered but not given as patient has an allergy to ibuprofen and aspirin. Did you discuss the management of the patient with other professionals (professionals i.e. , PA, DENITRATOR, lab, RT, psych nurse, social media project manager, pulmonary fellow, teacher, information security officer, family preservation caseworker)? Give summary @ -I spoke with Dr. Stearns, who was agreed to meet the patient for observation Was smoking cessation discussed for >3mins.? @ -No Was critical care preformed (if so, how long)? @ -No Were there social determinants of health that impacted care today? How? (Homelessness, low income, unemployed, alcoholism, drug addiction, transportation, low edu. Level, literacy, decrease access to med. care, longterm, rehab)? @ -No Was there de-escalation of care discussed even if they declined (Discuss DNR or withdrawal of care, Hospice)? DNR status @ -No What co-morbidities impacted this encounter? (DM, HTN, Smoking, COPD, CAD, Cancer, CVA, ARF, Chemo, Hep., AIDS, mental health diagnosis, sleep apnea, morbid obesity)? @ -None Was patient admitted / discharged? Hospital course, mention meds given and route, prescriptions, significant lab abnormalities, going to OR and other pertinent info. @ -Admitted. 89-year-old female presents emergency room with complaints of hypertension and headache. Overall patient is well-appearing and there are no neurological deficits on examination. Patient's initial blood pressure is elevated at 192/75. Patient's EKG is in sinus rhythm. Patient's kidney function is decreased with a creatinine of 1.22 and BUN of 49 with a GFR of 40 however this appears chronic for the patient as compared to previous blood work. Troponin is mildly elevated at 0.061. With concern for hypertension with elevated troponin patient will be admitted for cardiac observation with serial enzymes ordered. Patient is also provided with dose of hydralazine to lower blood pressure. Patient will be admitted to Dr. Stearns. I discussed this case with my attending Dr. Virgen. Undiagnosed new problem with uncertain prognosis? @ -No Drug Therapy requiring intensive monitoring for toxicity (Heparin, Nitro, Insulin, Cardizem)? @ -No Were any procedures done? @ -No Diagnosis/symptom? @ -Elevated troponin, hypertension Acute, or Chronic, or Acute on Chronic? @ -Acute Uncomplicated (without systemic symptoms) or Complicated (systemic symptoms)? @ -Complicated Side effects of treatment? @ -No Exacerbation, Progression, or Severe Exacerbation? @ -No Poses a threat to life or bodily function? How? (Chest pain, USA, MS, pneumonia, PE, COPD, DKA, ARF, appy, cholecystitis, CVA, Diverticulitis, Homicidal, Suicidal, threat to staff... and all critical care pts) @ -No - Lab Data Result diagrams: 03/19/25 11:19 03/19/25 11:19 Lab Results 03/19/25 03/19/25 03/19/25 Range/Units 11:19 11:19 11:19 WBC 9.05 (4.50-10.00) 10*3/uL RBC 4.29 (4.10-5.20) 10*6/uL Hgb 14.0 (12.0-15.0) g/dL Hct 42.0 (37.2-46.3) % MCV 97.9 H (80.0-97.0) fL MCH 32.6 H (27.0-32.0) pg MCHC 33.3 (32.0-37.0) g/dL Plt Count 197 (140-440) 10*3/uL MPV 9.3 L (9.5-12.2) fL Immature Gran % (Auto) 0.3 % Neutrophils % 77.0 % Lymphocytes % 15.8 % Monocytes % 5.7 % Eosinophils % 1.0 % Basophils % 0.2 % Immature Gran # 0.03 (0.00-0.04) 10*3/uL Neutrophils # 6.96 (1.80-7.70) 10*3/uL Lymphocytes # 1.43 (0.90-5.00) 10*3/uL Monocytes # 0.52 (0.20-1.00) 10*3/uL Eosinophils # 0.09 (0.04-0.35) 10*3/uL Basophils # 0.02 (0.00-0.10) 10*3/uL Sodium 139 (137-145) mmol/L Potassium 4.5 (3.5-5.1) mmol/L Chloride 106 (98-107) mmol/L Carbon Dioxide 22 (22-30) mmol/L Anion Gap 11 mmol/L BUN 49 H (7-17) mg/dL Creatinine 1.22 H (0.52-1.04) mg/dL Est GFR (CKD-EPI)AfAm 46 (>60 ml/min/1.73 sqM) Est GFR (CKD-EPI)NonAf 40 (>60 ml/min/1.73 sqM) Glucose 91 (74-99) mg/dL Calcium 9.7 (8.4-10.2) mg/dL Magnesium 1.9 (1.6-2.3) mg/dL Total Bilirubin 1.1 (0.2-1.3) mg/dL AST 79 H (14-36) U/L ALT 57 H (4-34) U/L Alkaline Phosphatase 61 (38-126) U/L Troponin I 0.061 H* (0.000-0.034) ng/mL Total Protein 7.8 (6.3-8.2) g/dL Albumin 4.7 (3.5-5.0) g/dL Disposition Clinical Impression: Hypertension, Elevated troponin level Disposition: [facility]MITTED [facility] Condition: Stable Decision to Admit Reason: Admit from EC Decision Date: 03/19/25 Decision Time: 14:15
--- NOTE | 2025-03-19 12:08 | CT ---
EXAMINATION TYPE: CT brain wo con DATE OF EXAM: 03/19/2025 11:30 AM COMPARISON: None. CLINICAL INDICATION: Female, 89 years old with history of YOUNGER, HTN, HYPERTENSION/HEADACHE TECHNIQUE: Brain: Axial CT images of the brain were obtained with coronal and sagittal reformats created and rev iewed. Contrast used: None. Oral contrast used: None. CT DLP: 1170.7 mGycm, Automated exposure control for dose reduction was used. FINDINGS: Brain: Extra-axial spaces: No abnormal extra-axial fluid collections. Ventricular system: Dilatation in proportion to cerebral atrophy. Cerebral parenchyma: Cerebral atrophy. No acute intraparenchymal hemorrhage or mass effect. The dominique -white junction is well differentiated. Scattered hypoattenuating areas are seen within the white mat ter. Cerebellum: Unremarkable. Mass effect: No evidence of midline shift. Intracranial vasculature: Atherosclerotic calcifications of the intracranial vessels. Soft tissues: Normal. Calvarium/osseous structures: No depressed skull fracture. Paranasal sinuses and mastoid air cells: Mild scattered paranasal sinus disease. Visualized orbits: Bilateral aphakia IMPRESSION: 1. No acute intracranial process. 2. Nonspecific white matter changes, likely secondary to chronic small vessel ischemic disease. [facility], , 03/19/2025 12:06 PM
[2025-03-19 12:14] LABS: Basophils # (A) 0.02 10*3/uL (0.00-0.10); Basophils % (A) 0.2 %; Eosinophils # (A) 0.09 10*3/uL (0.04-0.35); Lymphocytes # (A) 1.43 10*3/uL (0.90-5.00); Lymphocytes % (A) 15.8 %; MCH 32.6 pg (27.0-32.0); MCHC 33.3 g/dL (32.0-37.0); MCV 97.9 fL (80.0-97.0); Mean Platelet Volume 9.3 fL (9.5-12.2); Monocytes # (A) 0.52 10*3/uL (0.20-1.00); Monocytes % (A) 5.7 %; Neutrophils # (A) 6.96 10*3/uL (1.80-7.70); Platelet Count 197 10*3/uL (140-440); RBC 4.29 10*6/uL (4.10-5.20); WBC 9.05 10*3/uL (4.50-10.00)
[2025-03-19 12:38] LABS: ALT 57 U/L (4-34); African American GFR (CKD) 46 (>60 ml/min/1.73 sqM); Anion Gap 11 mmol/L; Blood Urea Nitrogen 49 mg/dL (7-17); Calcium 9.7 mg/dL (8.4-10.2); Carbon Dioxide 22 mmol/L (22-30); Chloride 106 mmol/L (98-107); Glucose 91 mg/dL (74-99); Non-African American GFR(CKD) 40 (>60 ml/min/1.73 sqM); Sodium 139 mmol/L (137-145); Total Bilirubin 1.1 mg/dL (0.2-1.3)
[2025-03-19 12:41] LABS: AST 79 U/L (14-36); Albumin 4.7 g/dL (3.5-5.0); Alkaline Phosphatase 61 U/L (38-126); Magnesium 1.9 mg/dL (1.6-2.3); Potassium 4.5 mmol/L (3.5-5.1); Total Protein 7.8 g/dL (6.3-8.2)
[2025-03-19] MEDS ORDERED: NALOXONE 0.4 MG/ML 1 ML VIAL IV PRN (14:12)
[2025-03-19] MEDS: hydrALAZINE HCL 20 MG/ML 1 ML VIAL IVP STA (15:01)
[2025-03-19] MEDS: ACETAMINOPHEN TAB 325 MG TAB PO PRN (22:06)
[2025-03-20 08:17] LABS: Basophils # (A) 0.03 X 10*3/uL (0.00-0.10); Basophils % (A) 0.4 %; Eosinophils # (A) 0.19 X 10*3/uL (0.04-0.35); Eosinophils % (A) 2.6 %; HCT 37.7 % (37.2-46.3); HGB 11.9 g/dL (12.0-15.0); Lymphocytes # (A) 3.15 X 10*3/uL (0.90-5.00); Lymphocytes % (A) 43.6 %; MCH 31.2 pg (27.0-32.0); MCHC 31.6 g/dL (32.0-37.0); Mean Platelet Volume 9.9 FL (9.5-12.2); Monocytes # (A) 0.61 X 10*3/uL (0.20-1.00); Monocytes % (A) 8.4 %; NRBC Per 100 WBC 0 X 10*3/uL (0.00-0.01); Neutrophils # (A) 3.22 X 10*3/uL (1.80-7.70); Neutrophils % (A) 44.7 %; Platelet Count 193 X 10*3/uL (140-440); RBC 3.81 X 10*6/uL (4.10-5.20); RDW 13.1 % (11.5-14.5); WBC 7.22 X 10*3/uL (4.50-10.00)
[2025-03-20 09:01] LABS: ALT 44 U/L (8-44); AST 36 U/L (13-35); Albumin 3.7 g/dL (3.8-4.9); Albumin/Globulin Ratio 1.61 Ratio (1.60-3.17); Alkaline Phosphatase 37 U/L (41-126); BUN/Creat Ratio 28.38 Ratio (12.00-20.00); Blood Urea Nitrogen 45.4 mg/dL (9.0-27.0); Calcium 9.2 mg/dL (8.7-10.3); Carbon Dioxide 20.8 mmol/L (21.6-31.8); Chloride 107 mmol/L (96-109); Globulin 2.3 g/dL (1.6-3.3); Glucose 88 mg/dL (70-110); Potassium 4.3 mmol/L (3.5-5.5); Sodium 141 mmol/L (135-145); Total Bilirubin 0.5 mg/dL (0.3-1.2)
--- NOTE | 2025-03-20 09:09 | P.CRDCN ---
History of Present Illness History of present illness: HISTORY OF PRESENTING ILLNESS This is a pleasant 89-year-old with past medical history significant for borderline hypertension in the past and otherwise relatively healthy with CKD. She had seen a geochemical laboratory technician she believes 5 to 10 years ago and workup was unrevealing at that time. She has been doing relatively well. She had been checking her blood pressure with significantly elevated readings in the 200s over 100 range and therefore saw PCP who had prescribed Procardia. Patient had not picked this up yet from the pharmacy and started to have more dizziness and headache and therefore presented to the emergency department. Patient was given milligrams of hydralazine with some improvement in blood pressures 150s to 190s systolic. She does not smoke, no alcohol. She has been complaining of some dizziness feeling of feeling somewhat drunk and off balance and woozy recently as well as headache bilateral temples. She denies any chest pain, pressure, arm pain. Father of an MD at the age of 69 however no other significant family history. She does have CKD however creatinine mildly improved to 1.2. Troponins mildly elevated 0.06. REVIEW OF SYSTEMS At the time of my exam: CONSTITUTIONAL: Denies fever or chills. CARDIOVASCULAR: Denies chest pain, shortness of breath, orthopnea, PND or palpitations. RESPIRATORY: Denies cough. GASTROINTESTINAL: Denies abdominal pain, diarrhea, constipation, nausea or vomiting. MUSCULOSKELETAL: Denies myalgias. NEUROLOGIC: Denies numbness, tingling or weakness. ENDOCRINE: Denies fatigue, weight change, polydipsia or polyurina. GENITOURINARY: Denies burning, hematuria or urgency with micturation. HEMATOLOGIC: Denies history of anemia or bleeding. PHYSICAL EXAMINATION Vital signs reviewed. CONSTITUTIONAL: No apparent distress. HEENT: Head is normocephalic. Pupils are equal, round. Sclerae anicteric. Mucous membranes of the mouth are moist. No JVD. No carotid bruit. CHEST EXAMINATION: Lungs are clear to auscultation. No chest wall tenderness is noted on palpation or with deep breathing. HEART EXAMINATION: Regular rate and rhythm. S1, S2 heard. No murmurs, gallops or rub. ABDOMEN: Soft, nontender. Positive bowel sounds. EXTREMITIES: 2+ peripheral pulses, no lower extremity edema and no calf tenderness. NEUROLOGIC EXAMINATION: Patient is awake, alert and oriented x3. ASSESSMENT Hypertensive urgency Troponin elevation, does not appear related to MD with chronic elevations likely related to CKD Chronic kidney disease Headache Lightheadedness/wooziness PLAN Patient with mildly elevated troponin however no significant angina type symptoms. She does have significant hypertension and start the home nifedipine that have been prescribed outpatient. Monitor response. She is also having some lightheadedness and we will check carotid ultrasound as well as sed rate and CRP to rule out giant cell arteritis. Await 2D echo. If workup unrevealing and blood pressure somewhat better controlled likely discharge home today. Consider outpatient stress test if still having significant angina type symptoms. May consider DANY or ARB however does have some borderline high potassium. Past Medical History Past Medical History: Hearing Disorder / Deafness, Hypertension, Osteoarthritis (OA), Renal Disease Additional Past Medical History / Comment(s): Illestomy, back pain, weakness, bilateral hearing aids, CKD - Stage 3B, Degenerative Disc Disease, spinal stenosis History of Any Multi-Drug Resistant Organisms: VRE Date of last positivie culture/infection: 12/04/2005 MDRO Source:: after bowel surgery Past Surgical History: Bowel Resection, Cholecystectomy, Hernia Repair, Hysterectomy, Joint Replacement Additional Past Surgical History / Comment(s): Illeostomy(in hospital for 5 months after the surgery, got infection, was unconscious for 2 weeks), left knee replacement, bowel resection, gland removed from neck. Past Anesthesia/Blood Transfusion Reactions: No Reported Reaction Past Psychological History: No Psychological Hx Reported Smoking Status: Never smoker Past Alcohol Use History: None Reported Past Drug Use History: None Reported - Past Family History Mother Family Medical History: Diabetes Mellitus Additional Family Medical History / Comment(s): Heart problems. Father Family Medical History: Hypertension, Myocardial Infarction ([place]) Additional Family Medical History / Comment(s): of heart attrack Sister(s) Family Medical History: Dementia Medications and Allergies Home Medications Medication Instructions Recorded Confirmed Type Multivitamins, Thera [Multivitamin 1 tab PO DAILY 02/15/19 03/19/25 History (formulary)] allopurinoL [Zyloprim] 100 mg PO DAILY 02/15/19 03/19/25 History Cyanocobalamin (Vitamin B-12) 1,000 mcg PO DAILY 06/04/21 03/19/25 History [Vitamin B-12] predniSONE 4 mg PO DAILY 06/04/21 03/19/25 History Aspirin EC [Ecotrin Low Dose] 81 mg PO DAILY 08/23/23 03/19/25 History Magnesium Glycinate 350 Mg 350 mg PO TID 08/23/23 03/19/25 History calcitrioL 0.25 mcg PO TUTH 08/23/23 03/19/25 History Acetaminophen [Tylenol 8 Hour] 650 mg PO BID 03/19/25 03/19/25 History Ergocalciferol (Vitamin D2) 1,250 mcg PO ANDERSEN 03/19/25 03/19/25 History [Drisdol (GEQ) 1,250 MCG (50,000 IU)] Krill/Om-3/Dha/Epa/Phospho/Ast 1 cap PO MOWEFR 03/19/25 03/19/25 History [Krill Oil 500 mg Softgel] NIFEdipine [Procardia] 10 mg PO DIRECTED 03/19/25 03/19/25 History Allergies Allergy/AdvReac Type Severity Reaction Status Date / Time ceftriaxone Allergy Swelling Verified 03/19/25 15:42 ciprofloxacin [From Cipro] Allergy Anaphylaxis Verified 03/19/25 15:42 codeine Allergy Anaphylaxis Verified 03/19/25 15:42 hydrocodone [From Vicodin] Allergy Anaphylaxis Verified 03/19/25 15:42 ibuprofen [From Motrin] Allergy Rash/Hives Verified 03/19/25 15:42 oxycodone [From Percocet] Allergy Anaphylaxis Verified 03/19/25 15:42 Penicillins Allergy Rash/Hives Verified 03/19/25 15:42 propoxyphene Allergy Anaphylaxis Verified 03/19/25 15:42 [From Darvocet-N] ramipril [From Altace] Allergy Anaphylaxis Verified 03/19/25 15:42 Physical Exam Vitals: Vital Signs Temp Pulse Pulse Resp BP BP BP 03/20/25 07:05 98.0 F 69 14 152/71 03/20/25 03:02 98.0 F 70 18 163/82 03/19/25 21:33 98.2 F 84 18 199/81 03/19/25 20:08 75 18 167/60 03/19/25 18:16 69 20 146/68 03/19/25 17:21 137/64 03/19/25 15:03 75 20 179/107 03/19/25 14:22 75 20 167/110 03/19/25 12:57 78 20 175/85 03/19/25 09:50 98 F 82 20 192/75 Pulse Ox 03/20/25 07:05 98 03/20/25 03:02 97 03/19/25 21:33 95 03/19/25 20:08 99 03/19/25 18:16 100 03/19/25 17:21 03/19/25 15:03 99 03/19/25 14:22 99 03/19/25 12:57 99 03/19/25 09:50 97 Intake and Output 03/19/25 03/20/25 03/20/25 22:59 06:59 14:59 Other: # Voids 1 1 Weight 55.338 kg Results 03/20/25 05:16 03/20/25 05:16 Cardiac Enzymes 03/19/25 03/19/25 03/19/25 Range/Units 11:19 11:19 15:00 AST 79 H (14-36) U/L Troponin I 0.061 H* 0.066 H* (0.000-0.034) ng/mL 03/19/25 03/20/25 Range/Units 18:07 05:16 AST 36 H (14-36) U/L Troponin I 0.064 H* (0.000-0.034) ng/mL CBC 03/19/25 03/20/25 Range/Units 11:19 05:16 WBC 9.05 7.22 (4.50-10.00) 10*3/uL RBC 4.29 3.81 L (4.10-5.20) 10*6/uL Hgb 14.0 11.9 L (12.0-15.0) g/dL Hct 42.0 37.7 (37.2-46.3) % Plt Count 197 193 (140-440) 10*3/uL Comprehensive Metabolic Panel 03/19/25 03/20/25 Range/Units 11:19 05:16 Sodium 139 141 (137-145) mmol/L Potassium 4.5 4.3 (3.5-5.1) mmol/L Chloride 106 107 (98-107) mmol/L Carbon Dioxide 22 20.8 L (22-30) mmol/L BUN 49 H 45.4 H (7-17) mg/dL Creatinine 1.22 H 1.6 H (0.52-1.04) mg/dL Glucose 91 88 (74-99) mg/dL Calcium 9.7 9.2 (8.4-10.2) mg/dL AST 79 H 36 H (14-36) U/L ALT 57 H 44 (4-34) U/L Alkaline Phosphatase 61 37 L (38-126) U/L Total Protein 7.8 6.0 L (6.3-8.2) g/dL Albumin 4.7 3.7 L (3.5-5.0) g/dL Current Medications Generic Name Dose Route Start Last Admin Trade Name Freq PRN Reason Stop Dose Admin Acetaminophen 650 mg 03/19/25 14:12 03/19/25 22:06 Acetaminophen Tab 325 Mg Tab PO 650 mg Q6HR PRN Administration Mild Pain or Fever > 100.5 Naloxone HCl 0.2 mg 03/19/25 14:12 Naloxone 0.4 Mg/Ml 1 Ml Vial IV Q2M PRN Opioid Reversal Nifedipine 30 mg 03/20/25 09:15 Nifedipine Xl 30 Mg Tab.Er.24 PO DAILY [id number] Intake and Output 03/19/25 03/20/25 03/20/25 22:59 06:59 14:59 Other: # Voids 1 1 Weight 55.338 kg 03/20/25 05:16 03/20/25 05:16
[2025-03-20] MEDS: NIFEdipine XL 30 MG TAB.ER.24 PO SCH (09:29)
--- NOTE | 2025-03-20 10:37 | CA ---
Transthoracic Echo Report Name: Aileen Olvera Age: 89 Gender: F : 1935 Exam Date: 03/20/2025 07:34 Exam Location: [facility] Ht (in): 60 Wt (lb): 122 Ordering Physician: Radha Childs Attending/Referring Phys: Electroformer Saji Ortega RDCS Procedure CPT: Indications: HTN, exertional dyspnea Cardiac Hx: Technical Quality: Good Contrast 1: Total Dose (mL): Contrast 2: Total Dose (mL): MEASUREMENTS (Male / Female) Normal Values 2D ECHO LV Diastolic Diameter PLAX 3.6 cm 4.2 - 5.9 / 3.9 - 5.3 cm LV Systolic Diameter PLAX 2.5 cm IVS Diastolic Thickness 0.9 cm 0.6 - 1.0 / 0.6 - 0.9 cm LVPW Diastolic Thickness 1.0 cm 0.6 - 1.0 / 0.6 - 0.9 cm LV Relative Wall Thickness 0.6 RV Internal Dim ED PLAX 3.0 cm LVOT Diameter 1.3 cm LA Systolic Diameter LX 3.7 cm 3.0 - 4.0 / 2.7 - 3.8 cm LV Diastolic Volume MOD BP 43.1 cm??? 67 - 155 / 56 - 104 cm??? LV Systolic Volume MOD BP 17.1 cm??? - 58 / 19 - 49 cm??? LV Ejection Fraction MOD BP 60.4 % >= 55 % LV Cardiac Index MOD BP 1147.2 cm???/min???m??? LV Diastolic Volume MOD 4C 47.7 cm??? LV Systolic Volume MOD 4C 15.2 cm??? LV Ejection Fraction MOD 4C 68.1 % LV Cardiac Index MOD 4C 1433.2 cm???/min???m??? LV Diastolic Length 4C 5.7 cm LV Systolic Length 4C 5.0 cm LV Diastolic Volume MOD 2C 38.2 cm??? LV Systolic Volume MOD 2C 15.5 cm??? LV Ejection Fraction MOD 2C 59.5 % LV Cardiac Index MOD 2C 1003.2 cm???/min???m??? LV Diastolic Length 2C 5.9 cm LV Systolic Length 2C 4.5 cm LA Volume 37.6 cm??? 18 - 58 / 22 - 52 cm??? LA Volume Index 24.4 cm???/m??? 16 - 28 cm???/m??? DOPPLER MV Area PHT 2.9 cm??? Mitral E Point Velocity 91.4 cm/s Mitral A Point Velocity 108.8 cm/s Mitral E to A Ratio 0.8 MV Deceleration Time 257.7 ms TR Peak Velocity 274.8 cm/s TR Peak Gradient 30.2 mmHg Right Atrial Pressure 5.0 mmHg Pulmonary Artery Systolic Pressu 35.2 mmHg Right Ventricular Systolic Press 35.2 mmHg FINDINGS Left Ventricle Left ventricular ejection fraction is estimated at 55-60%. Mild concentric left ventricular hypertrophy. No obvious regional wall motion abnormalities. Left ventricular cavity size normal. Right Ventricle Normal right ventricular size and function. Right ventricular systolic pressure within normal limits. Right Atrium Normal right atrial size. Left Atrium Normal left atrial size. Mitral Valve Moderate mitral annular calcification. . No mitral stenosis. Mild mitral regurgitation. Aortic Valve Trileaflet aortic valve. Diffuse thickening (sclerosis) of the aortic valve cusps without reduced excursion. No aortic stenosis. No aortic regurgitation. Tricuspid Valve Structurally normal tricuspid valve. No tricuspid stenosis. [id number] tricuspid regurgitation. Pulmonic Valve Structurally normal pulmonic valve. No pulmonic stenosis. Trace pulmonic regurgitation. Pericardium No pericardial effusion. Aorta Aortic annulus normal. CONCLUSIONS Left ventricular ejection fraction 55 to 60% Mild increased left ventricular wall thickness RVSP 35 Mild mitral regurgitation Mild to moderate tricuspid regurgitation No pericardial effusion Previewed by: Dr. Samm Lira DO (Electronically Signed) Final Date: 20 March 2025 10:36
--- NOTE | 2025-03-20 11:24 | US ---
EXAMINATION TYPE: US carotid duplex BILAT DATE OF EXAM: 03/20/2025 COMPARISON: NONE CLINICAL INDICATION: Female, 89 years old with history of re: lightheadedness, dizziness; Dizzy Additional History: .... TECHNIQUE: Grayscale, color Doppler and spectral Doppler evaluation of the bilateral carotid systems and vertebral arteries. Indirect Doppler criteria was utilized. FINDINGS: EXAM MEASUREMENTS: RIGHT: Peak Systolic Velocity (PSV) cm/sec ----- Right CCA: 75.4 ----- Right ICA: 76.7 ----- Right ECA: 112 ICA/CCA ratio: 1.0 RIGHT: End Diastole cm/sec ----- Right CCA: 8.4 ----- Right ICA: 12.3 ----- Right ECA: 0 LEFT: Peak Systolic Velocity (PSV) cm/sec ----- Left CCA: 157 ----- Left ICA: 178 ----- Left ECA: 148 ICA/CCA ratio: 1.1 LEFT: End Diastole cm/sec ----- Left CCA: 27.5 ----- Left ICA: 28.7 ----- Left ECA: 0 VERTEBRALS (direction of flow): Right Vertebral: Antegrade Left Vertebral: Antegrade Rhythm: Normal TAP OUT OPERATOR NOTES: No significant stenosis seen Color Doppler imaging shows patency with blood flow throughout the carotid artery. Spectral waveforms are within normal limits. IMPRESSION: Right: Less than 50% stenosis of the carotid bifurcation. Left: Less than 50% stenosis of the carotid bifurcation. Criteria for Assigning % of Stenosis / Diameter reduction (Estimation based on the indirect measurements of the internal carotid artery velocities (ICA PSV). 1. Normal (no stenosis)=ICA PSV < 180 cm/s: ratio < 2.0: ICA EDV<40 cm/s. 2. Less than 50% stenosis=ICA PSV < 180 cm/s: ratio < 2.0: ICA EDV<40 cm/s. 3. 50 to 69% stenosis=ICA PSV of 180 to 230 cm/s: ration 2.0 ? 4.0: ICA EDV 40-100 cm/s. PSV 125-180 cm/sec and ICA/CCA PSV Ratio ? 2.0 is also consistent with 50-69% stenosis 4. Greater than 70% stenosis to near occlusion= ICA PSV > 230 cm/s: ratio > 4.0: ICA EDV > 100 cm/s. 5. Near occlusion= ICA PSV velocities may be low or undetectable: variable ratio and ICA EDV. 6. Total occlusion=unable to detect flow. [facility], , 03/20/2025 11:21 AM
[2025-03-20 14:20] VITALS: BP 118/74; PULSE 73; RESP 16; TEMP 98.3
[2025-03-20] MEDS ORDERED: NIFEdipine 10 MG CAP PO SCH (14:30)
--- NOTE | 2025-03-20 14:31 | P.HPIM ---
History of Present Illness H&P Date: 03/20/25 Aileen Olvera, is an 89-year-old female who presented to [facility] emergency room with a chief complaint of headache, blurry vision, and elevated blood pressure. She was evaluated in the emergency room vital examination on presentation revealed a temperature of 98 pulse 82 respiration 20 blood pressure 192/75 pulse ox 97% on room air Laboratory data revealed a white blood count of 9.05 hemoglobin 14.0 platelet count 197 BUN 49 creatinine 1.22 troponin level 0.061 AST 79 ALT 57 Testing in the emergency room revealed EKG done in the emergency room revealed sinus rhythm, normal EKG, CT scan of the brain revealed no acute intracranial process nonspecific white matter changes likely secondary to chronic small vessel ischemic disease. Patient was admitted to medical floor for further evaluation and treatment Past medical history is significant for history of hypertension, history of osteoarthritis, history of spinal stenosis with chronic back pain, history of hearing loss, history of CKD stage IIIb, On review of systems patient is alert and oriented x 3 in no apparent distress she is complaining of lightheadedness otherwise she denies any complaints there is no fever or chills no headache or dizziness no chest pain no shortness of breath no cough no nausea or vomiting no abdominal pain no diarrhea and no urinary symptoms. Past Medical History Past Medical History: Hearing Disorder / Deafness, Hypertension, Osteoarthritis (OA), Renal Disease Additional Past Medical History / Comment(s): Illestomy, back pain, weakness, bilateral hearing aids, CKD - Stage 3B, Degenerative Disc Disease, spinal stenosis History of Any Multi-Drug Resistant Organisms: VRE Date of last positivie culture/infection: 12/04/2005 MDRO Source:: after bowel surgery Past Surgical History: Bowel Resection, Cholecystectomy, Hernia Repair, Hysterectomy, Joint Replacement Additional Past Surgical History / Comment(s): Illeostomy(in hospital for 5 months after the surgery, got infection, was unconscious for 2 weeks), left knee replacement, bowel resection, gland removed from neck. Past Anesthesia/Blood Transfusion Reactions: No Reported Reaction Past Psychological History: No Psychological Hx Reported Smoking Status: Never smoker Past Alcohol Use History: None Reported Past Drug Use History: None Reported - Past Family History Mother Family Medical History: Diabetes Mellitus Additional Family Medical History / Comment(s): Heart problems. Father Family Medical History: Hypertension, Myocardial Infarction ([place]) Additional Family Medical History / Comment(s): of heart attrack Sister(s) Family Medical History: Dementia Medications and Allergies Home Medications Medication Instructions Recorded Confirmed Type Multivitamins, Thera [Multivitamin 1 tab PO DAILY 02/15/19 03/19/25 History (formulary)] allopurinoL [Zyloprim] 100 mg PO DAILY 02/15/19 03/19/25 History Cyanocobalamin (Vitamin B-12) 1,000 mcg PO DAILY 06/04/21 03/19/25 History [Vitamin B-12] predniSONE 4 mg PO DAILY 06/04/21 03/19/25 History Aspirin EC [Ecotrin Low Dose] 81 mg PO DAILY 08/23/23 03/19/25 History Magnesium Glycinate 350 Mg 350 mg PO TID 08/23/23 03/19/25 History calcitrioL 0.25 mcg PO TUTH 08/23/23 03/19/25 History Acetaminophen [Tylenol 8 Hour] 650 mg PO BID 03/19/25 03/19/25 History Ergocalciferol (Vitamin D2) 1,250 mcg PO ANDERSEN 03/19/25 03/19/25 History [Drisdol (GEQ) 1,250 MCG (50,000 IU)] Krill/Om-3/Dha/Epa/Phospho/Ast 1 cap PO MOWEFR 03/19/25 03/19/25 History [Krill Oil 500 mg Softgel] NIFEdipine [Procardia] 10 mg PO DIRECTED 03/19/25 03/19/25 History Allergies Allergy/AdvReac Type Severity Reaction Status Date / Time ceftriaxone Allergy Swelling Verified 03/19/25 15:42 ciprofloxacin [From Cipro] Allergy Anaphylaxis Verified 03/19/25 15:42 codeine Allergy Anaphylaxis Verified 03/19/25 15:42 hydrocodone [From Vicodin] Allergy Anaphylaxis Verified 03/19/25 15:42 ibuprofen [From Motrin] Allergy Rash/Hives Verified 03/19/25 15:42 oxycodone [From Percocet] Allergy Anaphylaxis Verified 03/19/25 15:42 Penicillins Allergy Rash/Hives Verified 03/19/25 15:42 propoxyphene Allergy Anaphylaxis Verified 03/19/25 15:42 [From Darvocet-N] ramipril [From Altace] Allergy Anaphylaxis Verified 03/19/25 15:42 Physical Exam Vitals: Vital Signs Temp Pulse Pulse Resp BP BP BP 03/20/25 07:05 98.0 F 69 14 152/71 03/20/25 03:02 98.0 F 70 18 163/82 03/19/25 21:33 98.2 F 84 18 199/81 03/19/25 20:08 75 18 167/60 03/19/25 18:16 69 20 146/68 03/19/25 17:21 137/64 03/19/25 15:03 75 20 179/107 03/19/25 14:22 75 20 167/110 03/19/25 12:57 78 20 175/85 03/19/25 09:50 98 F 82 20 192/75 Pulse Ox 03/20/25 07:05 98 03/20/25 03:02 97 03/19/25 21:33 95 03/19/25 20:08 99 03/19/25 18:16 100 03/19/25 17:21 03/19/25 15:03 99 03/19/25 14:22 99 03/19/25 12:57 99 03/19/25 09:50 97 Intake and Output 03/19/25 03/20/25 03/20/25 22:59 06:59 14:59 Other: # Voids 1 1 Weight 55.338 kg In general patient is alert and oriented x 3 in no distress HEENT head normocephalic and atraumatic Neck is supple no JVD no goiter no lymphadenopathy no carotid bruit Chest examination is clear to auscultation no crackles no wheezing Cardiac exam reveals regular heart sounds S1 and S2 no gallops no murmurs Abdomen is soft nontender no organomegaly with normal bowel sounds Extremity exam reveals no edema no cyanosis or clubbing Neurological examination reveals no gross focal deficits Results CBC & Chem 7: 03/20/25 05:16 03/20/25 05:16 Labs: Abnormal Lab Results - Last 24 Hours (Table) 03/19/25 03/19/25 03/19/25 Range/Units 11:19 11:19 11:19 RBC (4.10-5.20) X 10*6/uL Hgb (12.0-15.0) g/dL MCV 97.9 H (80.0-97.0) fL MCH 32.6 H (27.0-32.0) pg MCHC (32.0-37.0) g/dL MPV 9.3 L (9.5-12.2) fL BUN 49 H (7-17) mg/dL Creatinine 1.22 H (0.52-1.04) mg/dL AST 79 H (14-36) U/L ALT 57 H (4-34) U/L Troponin I 0.061 H* (0.000-0.034) ng/mL 03/19/25 03/19/25 03/20/25 Range/Units 15:00 18:07 05:16 RBC 3.81 L (4.10-5.20) X 10*6/uL Hgb 11.9 L (12.0-15.0) g/dL MCV 99.0 H (80.0-97.0) fL MCH (27.0-32.0) pg MCHC 31.6 L (32.0-37.0) g/dL MPV (9.5-12.2) fL BUN (7-17) mg/dL Creatinine (0.52-1.04) mg/dL AST (14-36) U/L ALT (4-34) U/L Troponin I 0.066 H* 0.064 H* (0.000-0.034) ng/mL Thrombosis Risk Factor Assmnt - Choose All That Apply Any of the Below Risk Factors Present?: No Other Risk Factors: Yes Each Risk Factor Represents 3 Points: Age 75 years or older Other congenital or acquired thrombophilia - If yes, enter type in comment: No Thrombosis Risk Factor Assessment Total Risk Factor Score: 3 Thrombosis Risk Factor Assessment Level: Moderate Risk Assessment and Plan Plan: Hypertension with hypertensive emergency Elevated troponin level Underlying history of chronic kidney disease Episodes of headache in the last 48 hours Episodes of dizziness with lightheadedness At this time patient was seen and examined Medications reviewed and reordered Cardiology consultation requested IV hydralazine as needed for blood pressure control Will follow closely
--- NOTE | 2025-03-20 17:05 | P.DS ---
Providers Date of admission: 03/19/25 14:12 Expected date of discharge: 03/20/25 Attending physician: Vandana Stearns Consults: 03/19/25 14:12 Consult Physician Routine Consulting Provider: [facility] Consult Reason/Comments: HTN, elevated trop Do you want consulting provider notified?: Yes, Notify in am Primary care physician: Bharati Molina [facility] Course: Diagnosis on discharge: Hypertension with hypertensive emergency Elevated troponin level, myocardial infarction ruled out Underlying history of chronic kidney disease Episodes of headache in the last 48 hours Episodes of dizziness with lightheadedness Hospital course: Aileen Olvera, is an 89-year-old female who presented to [facility] emergency room with a chief complaint of headache, blurry vision, and elevated blood pressure. She was evaluated in the emergency room vital examination on presentation revealed a temperature of 98 pulse 82 respiration 20 blood pressure 192/75 pulse ox 97% on room air Laboratory data revealed a white blood count of 9.05 hemoglobin 14.0 platelet count 197 BUN 49 creatinine 1.22 troponin level 0.061 AST 79 ALT 57 Testing in the emergency room revealed EKG done in the emergency room revealed sinus rhythm, normal EKG, CT scan of the brain revealed no acute intracranial process nonspecific white matter changes likely secondary to chronic small vessel ischemic disease. Patient was admitted to medical floor for further evaluation and treatment On 03/20/2025 patient was seen and examined on the medical floor is alert and oriented x 3 in no apparent distress there is no fever or chills no headache or dizziness no chest pain no shortness of breath no cough no nausea or vomiting no abdominal pain no diarrhea no urinary symptoms. She was evaluated by cardiology, carotid Doppler was ordered and revealed less than 50% stenosis bilaterally, ESR and CRP were done and were within normal limit. Nifedipine 10 mg daily as needed was changed to nifedipine XL 30 mg daily, patient was doing well she was discharged home, will follow-up with her primary care physician within 1 week. Patient Condition at Discharge: Stable Plan - Discharge Summary New Discharge Prescriptions: New NIFEdipine XL [Procardia XL] 30 mg PO DAILY 30 Days #30 tab Continue Multivitamins, Thera [Multivitamin (formulary)] 1 tab PO DAILY allopurinoL [Zyloprim] 100 mg PO DAILY Cyanocobalamin (Vitamin B-12) [Vitamin B-12] 1,000 mcg PO DAILY predniSONE 4 mg PO DAILY Magnesium Glycinate 350 Mg 350 mg PO TID Ergocalciferol (Vitamin D2) [Drisdol (GEQ) 1,250 MCG (50,000 IU)] 1,250 mcg PO ANDERSEN Aspirin EC [Ecotrin Low Dose] 81 mg PO DAILY calcitrioL 0.25 mcg PO TUTH Acetaminophen [Tylenol 8 Hour] 650 mg PO BID Krill/Om-3/Dha/Epa/Phospho/Ast [Krill Oil 500 mg Softgel] 1 cap PO MOWEFR Discontinued NIFEdipine [Procardia] 10 mg PO DIRECTED Discharge Medication List Multivitamins, Thera [Multivitamin (formulary)] 1 tab PO DAILY 02/15/19 [History] allopurinoL [Zyloprim] 100 mg PO DAILY 02/15/19 [History] Cyanocobalamin (Vitamin B-12) [Vitamin B-12] 1,000 mcg PO DAILY 06/04/21 [History] predniSONE 4 mg PO DAILY 06/04/21 [History] Aspirin EC [Ecotrin Low Dose] 81 mg PO DAILY 08/23/23 [History] Magnesium Glycinate 350 Mg 350 mg PO TID 08/23/23 [History] calcitrioL 0.25 mcg PO TUTH 08/23/23 [History] Acetaminophen [Tylenol 8 Hour] 650 mg PO BID 03/19/25 [History] Ergocalciferol (Vitamin D2) [Drisdol (GEQ) 1,250 MCG (50,000 IU)] 1,250 mcg PO ANDERSEN 03/19/25 [History] Krill/Om-3/Dha/Epa/Phospho/Ast [Krill Oil 500 mg Softgel] 1 cap PO MOWEFR 03/19/25 [History] NIFEdipine XL [Procardia XL] 30 mg PO DAILY 30 Days #30 tab 03/20/25 [Rx] Follow up Appointment(s)/Referral(s): Bharati Molina MD [Primary Care Provider] - 1-2 days
[2025-03-20] MEDS ORDERED: ACETAMINOPHEN TAB 325 MG TAB PO SCH (21:00)
[2025-03-21] MEDS ORDERED: ASPIRIN 81 MG PO SCH (09:00)
[2025-03-21] MEDS ORDERED: MULTIVITAMINS, THERA 1 EACH TAB PO SCH (09:00)
[2025-03-21] MEDS ORDERED: allopurinoL 100 MG TAB PO SCH (09:00)
[2025-03-21] MEDS ORDERED: CYANOCOBALAMIN 500 MCG TAB PO SCH (09:00)
[2025-03-21] MEDS ORDERED: predniSONE 1 MG TAB PO SCH (09:00)
[2025-03-26] MEDS ORDERED: ERGOCALCIFEROL 1,250 MCG (50,000 IU) CAPSULE PO SCH (09:00)
== END 2025-03-20 17:49 | disposition home or self-care (01) ==
LOC: EC 09:28 → 6NMEDSUR 14:12
PROVIDERS: ADMIT Internal Medicine; ATTEND Internal Medicine
DX: I16.1 Hypertensive emergency (principal); I12.9 Hypertensive chronic kidney disease with stage 1 through stage 4 chronic kidney disease, or unspecified chronic kidney disease; N18.32 Chronic kidney disease, stage 3b; R79.89 Other specified abnormal findings of blood chemistry; Z79.82 Long term (current) use of aspirin; Z79.899 Other long term (current) drug therapy; Z88.0 Allergy status to penicillin; Z88.1 Allergy status to other antibiotic agents; Z88.5 Allergy status to narcotic agent; Z88.6 Allergy status to analgesic agent
CPT/HCPCS: 99285; 96374; 36415; 93005 ×2; 93306; 80053 ×2; 85652; 83735; 84484; 85025 ×2; 86140; 93880; 70450; G0378 ×2; J0360